=== PATIENT | male | born 1945 | race African-American/Black ===

== ENCOUNTER → 2016-07-30 | Outpatient (CLI) | payer MEDICARE, MEDICAID ==
[~2016-07-30] VITALS: Ht 177.8 cm; Wt 81.2 kg
[~2016-07-30] MED LIST: ASPI-983 PO; ASPI-999 PO; ATOR80TA76 PO; BIOT25007 PO; CARV12.53 PO; CATHETER FLUSH 10 ML SYR IV PRN; FERR-84 PO; GENT3.5O18 TOP; GLIP5TAB13 PO; ISOS30TA3 PO; KERATIN PO; LISI-556 PO; LISI10TA PO; LISI10TA2 PO; METF500T4 PO; METO-333 PO; MTF500T PO; MULT1TAB69 PO; OMEG-160 PO; OMEP20CA12 PO; OMEP20TA33 PO; OMG1KC PO; PRAV10TA PO; RSG4T PO; SIMV20TA3 PO; SITA50TA PO; TICA90TA PO
[2016-07-30 13:46] VITALS: BP 181/88
[2016-07-30 13:54] VITALS: BP 165/74
[2016-07-30 13:57] VITALS: BP 141/76
[2016-07-30 13:58] VITALS: BP 145/78
[2016-07-30 14:00] VITALS: BP 150/82
--- NOTE | 2016-07-31 11:34 | STRESS TEST ---
PROCEDURE PHYSICIAN: KELLY QUINTANILLA MYOVIEW STRESS TEST REPORT: DATE OF PROCEDURE: 07/30/2016 REFERRING PHYSICIAN: Dr. Janet Stokes. INDICATION: Coronary artery disease. Baseline heart rate 66, baseline blood pressure: 181/88. Baseline EKG: Sinus rhythm with no ischemic changes. SUMMARY: The patient was injected with 10.5 mCi of technetium 99 Myoview and the resting images were obtained. Then he started exercising with a baseline heart rate, blood pressure, EKG mentioned above. At minute 2 and 30 seconds, the patient was injected with 30.2 mCi of technetium 99 Myoview. The patient was able to exercise for a total of 3 minutes, 40 seconds on standard Dean protocol. With peak exercise level, blood pressure was 165/74. EKG was showing minimal nondiagnostic changes with upsloping ST depression in II, III aVF, V4 and V5. The resting and stress images were reviewed and compared in the short axis, horizontal long axis, and vertical long axis views. Review of the images showed diaphragmatic attenuation with decreased uptake involving the whole inferior wall, inferolateral wall, with mild reversibility. SSS is 20, SDS 5. TID value 0.98. On the gated images, the left ventricle appeared to be normal size with normal contractility. Calculated ejection fraction 60%. CONCLUSION: 1. Fair exercise tolerance a total of 3 minutes, 40 seconds on standard Dean protocol. Total of 4.6 METs, achieving 91% of maximum expected heart rate. 2. Appropriate heart rate and blood pressure response to exercise. Returned to baseline during recovery. 3. Diaphragmatic attenuation affecting the quality of the images, there is decreased uptake involving the whole inferior wall, inferolateral wall, with mild reversibility. SSS is 20, SDS 5. 4. Normal left ventricular size with normal contractility, inferior wall is florencio normally. Calculated ejection fraction 60%. Job ID: [id number] Dictated Date: 07/30/2016 17:35:31 Truck Driver'S Offsider Date: 07/31/2016 11:28:20 / akira
== END ==
LOC: CARD 11:51
PROVIDERS: ATTEND Physician Assistant
DX: I25.10 Atherosclerotic heart disease of native coronary artery without angina pectoris (principal); I10 Essential (primary) hypertension; E78.2 Mixed hyperlipidemia; I07.1 Rheumatic tricuspid insufficiency
CPT/HCPCS: 78452; 93017

== ENCOUNTER 2016-08-13 07:37 | Day surgery (SDC) | payer MEDICARE, MEDICAID ==
[~2016-08-13] VITALS: Ht 177.8 cm; Wt 83.9 kg
[2016-08-13] VITALS (15 sets, daily range): BP systolic 122–173; BP diastolic 70–98
[~2016-08-13 07:37] MED LIST changes: -CARV12.53 PO; -CATHETER FLUSH 10 ML SYR IV PRN; -LISI10TA2 PO; -SITA50TA PO
[2016-08-13] MEDS ORDERED: HEParin (CATH LAB) 2,000 ML IV ONE (07:43)
[2016-08-13] MEDS ORDERED: NS IV 1000 ML 1,000 ML ONE (07:43)
[2016-08-13] MEDS ORDERED: LIDOCAINE 1% INJ 20 ML (XYLOCAINE) VIAL ONE (07:43)
[2016-08-13 08:27] LABS: MEAN PLATELET VOLUME 8.8 FL (7.4-10.4); RED BLOOD COUNT 4.27 10^6/uL (4.35-5.85); RED CELL DISTRIBUTION WIDTH 12.9 % (10.0-14.5); WHITE BLOOD COUNT 6.2 10^3/uL (4.3-11.0)
--- NOTE | 2016-08-13 08:32 | Diagnostic Imaging Report ---
EXAMINATION: Portable upright radiograph of the chest. INDICATION: Abnormal stress test. Dyspnea. FINDINGS: The lungs are clear. The heart size is normal. No effusion or pneumothorax. Mediastinum and juan m appear unremarkable. IMPRESSION: Unremarkable exam. Dictated by: Dictated on workstation # [id number]
[2016-08-13 08:36] LABS: PROTHROMBIN TIME PATIENT 12.4 SEC (12.2-14.7)
[2016-08-13 08:45] LABS: ALBUMIN 3.8 G/DL (3.2-4.5); BILIRUBIN,TOTAL 0.5 MG/DL (0.1-1.0); CALCIUM 8.9 MG/DL (8.5-10.1); CREATININE SERUM 1.54 MG/DL (0.60-1.30); POTASSIUM 4.1 MMOL/L (3.6-5.0); TOTAL PROTEIN 6.6 G/DL (6.4-8.2)
[2016-08-13] MEDS ORDERED: NS IV 1000 ML 1,000 ML IV SCH ×2 (08:45→11:02)
[2016-08-13] MEDS ORDERED: LISI10TA2 PO (09:12)
[2016-08-13] MEDS ORDERED: SITA50TA PO (09:12)
[2016-08-13] MEDS ORDERED: CARV12.53 PO (09:12)
--- NOTE | 2016-08-13 09:44 | Cardiac Procedure Note-CS/ASA ---
Pre-Procedure Note Pre-Op Procedure Note H&P Reviewed The H&P was reviewed, patient examined and no changes noted. Date H&P Reviewed: Aug 13, 2016 Time H&P Reviewed: 09:44 Conscious Sedation Pre-Proced Time Reviewed: :44 ASA Class: 3 Airway Mallampati Classification: ([place] appropriate class) I. II. III, IV Lungs Heart ASA score ASA 1: a normal healthy patient ASA 2: a patient with a mild systemic disease (mid diabetes, controlled hypertension, obesity x ASA 3: a patient with a severe systemic disease that limits activity (angina , COPD, prior Myocardial infarction) ASA 4: a patient with an incapacitating disease that is a constant threat to life (CHF, renal failure) ASA 5: a moribund patient not expected to survive 24 hrs. (ruptured aneurysm) ASA 6: a declared brain patient whose organs are being harvested. For emergent operations, add the letter E after the classification Grade 3 Sedation Plan: Analgesia, Amnesia, Plan communicated to team members, Discussed options with patient/fam, Discussed risks with patient/fam Note The patient is an appropriate candidate to undergo the planned procedure, sedation, and anesthesia. The patient immediately re-assessed prior to indication. KELLY RODRIGUEZ MD Aug 13, 2016 09:44
[2016-08-13] MEDS ORDERED: fentaNYL INJECTION 100 MCG/2 ML AMP ONE (10:13)
[2016-08-13] MEDS ORDERED: MIDAZOLAM 5 MG/5 ML (VERSED) VIAL ONE (10:13)
--- NOTE | 2016-08-13 11:04 | Discharge Inst-Post CATH ---
Discharge Inst-CATH Post Cardiac Cath D/C Inst Follow Up/Plan Hold Metformin for [address] Dsouza's office in 2-4 weeks CARDIAC CATH DISCHARGE INSTRUCTIONS *Hold Metformin for 48 hours post heart cath. ACTIVITY * Go Home directly and rest. * Limit activity of the leg (or wrist if it was used) for 7 days including aerobics, swimming, jogging, bicycling, etc. * Restrict stair-climbing for 7 days if possible, if not, climb up with your non -cath leg, then bring together on the same step. * Avoid lifting, pushing, pulling or excessive movement of the affected extremity for 7 days. * Customary sexual activity may be resumed after 2 days-use caution not to use a position that strains or causes pain to the affected extremity. * No driving for 24 hours. * NO SMOKING. * Avoid straining for bowel movements for 7 days. * Gentle walking on level ground is allowed. * Returning to work will depend on the type of procedure and the results. Your doctor will discuss this with you. CALL YOUR DOCTOR FOR ANY OF THE FOLLOWING: *If bleeding from the puncture site occurs- Apply gentle pressure to site with clean cloth and call your doctor or EMS. * If a knot or lump forms under the skin, increases in size, or causes pain. * If bruising appears to be worsening or moving further down your leg instead of disappearing. * Temperature above 101 F. CARE OF YOUR GROIN INCISION; * Bruising or purple discoloration of the skin near the puncture site is common. * You may shower only, no bathtub bathing for 5 days. Be careful to avoid slipping as your leg may feel stiff. * If a closure device was used on your femoral artery, please see the attached guide regarding care of the device and your leg. * REMOVE the dressing from your groin the next day after your procedure in the shower. CARE OF YOUR WRIST INCISION; * Bruising or purple discoloration of the skin near the puncture site is common. * You may shower. * DO NOT submerge wrist. * Remove dressing in 24 hours. KELLY DSOUZA MD Aug 13, 2016 11:04
[2016-08-13] MEDS ORDERED: PATIENT MAY USE OWN MEDS, ALL PO SCH (11:15)
--- NOTE | 2016-08-14 07:41 | CARDIAC CATHETERIZATION ---
DATE OF SERVICE: 08/13/2016 CARDIAC CATHETERIZATION REFERRING PHYSICIAN: Dr. Janet Stokes BRIEF HISTORY: The patient is a 71-year-old gentleman with extensive coronary artery disease, multiple wrist fractures, had acute myocardial infarction in 08/2015, underwent emergency cardiac catheterization with stenting to the second obtuse marginal branch with a small stent and balloon angioplasty to a small, nondominant right coronary artery. The patient has been doing well, had an abnormal stress test. He was scheduled for left heart catheterization, possible PTCA. PROCEDURE NOTE: After explaining the procedure to the patient, all pros and cons were explained, all questions were answered. The patient signed the consent and then he was placed in the cardiac catheterization laboratory. Right groin was prepped in a sterile fashion. Local anesthesia applied to the right groin. A 6-Finnish sheath was placed in the right femoral artery. Combination of right and left Ailyn catheter were used to access the right and left coronary system. Multiple views were obtained. Pigtail catheter advanced to the left ventricular cavity. Pressure was measured. No left ventriculogram was done. At the end of the procedure, sheath was removed. MYNX device deployed. Hemostasis achieved. TOTAL CONTRAST USED: 34 mL. TOTAL RADIATION DOSE: 265 mGy. FINDINGS: Hemodynamics: LV pressure 126/7, end diastolic pressure of 7, aortic pressure 126/60, mean of 85, no significant gradient across the aortic valve. ANATOMY: 1. The left main coronary artery is bifurcating into the left anterior descending and left circumflex artery with 30% distal left main stenosis. 2. Left anterior descending artery is moderate in size with 40% stenosis in the mid LAD, nonobstructive disease. 3. Left circumflex artery is a dominant artery with mild disease proximally. The second obtuse marginal branch is occluded, no collateral to that branch. 4. Right coronary artery is a small nondominant artery with 50% stenosis at the proximal and mid portion. 5. No left ventriculogram was done. Normal left ventricular end diastolic pressure. IN CONCLUSION: 1. Total occlusion of the second obtuse marginal branch that is not receiving collateral at this point. 2. A 50% stenosis in the proximal and mid right coronary artery that is small nondominant artery. 3. Mild disease in the distal left main and mid LAD. DISCUSSION AND RECOMMENDATION: Second obtuse marginal branch appeared to be occluded again. It was totally occluded initially in 2015 and underwent emergency angioplasty and stenting to be re-stenosed. At this point, due to the fact that it is totally occluded and the patient is doing well, I will continue medical therapy. Consideration for high risk intervention to the second obtuse marginal branch, although the benefit is very limited, will be made if the patient became significantly symptomatic. His left ventricular end diastolic pressure is normal, stress score is fairly elevated due to the inferior wall infarct. FINAL DIAGNOSES: 1. Coronary artery disease. 2. Hypertension. 3. Hyperlipidemia. 4. Diabetes mellitus. Job ID: [id number] DocumentID: [id number] Dictated Date: 08/13/2016 11:08:50 Respiratory Therapy Director Date: 08/13/2016 20:07:01 Dictated By: KELLY RODRIGUEZ MD
== END 2016-08-13 15:40 | disposition home or self-care (01) ==
LOC: CATH 07:37 → SURG 11:23 → CATH 15:40
PROVIDERS: ATTEND Internal Medicine Cardiovascular Disease
DX: R94.39 Abnormal result of other cardiovascular function study (principal); I25.10 Atherosclerotic heart disease of native coronary artery without angina pectoris; I25.82 Chronic total occlusion of coronary artery; I25.2 Old myocardial infarction; I12.9 Hypertensive chronic kidney disease with stage 1 through stage 4 chronic kidney disease, or unspecified chronic kidney disease; N18.9 Chronic kidney disease, unspecified; E78.5 Hyperlipidemia, unspecified; E11.22 Type 2 diabetes mellitus with diabetic chronic kidney disease; Z79.899 Other long term (current) drug therapy; Z79.84 Long term (current) use of oral hypoglycemic drugs; Z87.891 Personal history of nicotine dependence; Z95.5 Presence of coronary angioplasty implant and graft
CPT/HCPCS: 36415; 71010; 80053; 80061; 85027; 85610; 85730; 87081; 93458

== ENCOUNTER 2017-05-31 16:47 | Emergency (ER) | payer MEDICARE, MEDICAID ==
[~2017-05-31] VITALS: Ht 177.8 cm; Wt 83.9 kg
[~2017-05-31 16:47] MED LIST changes: +CARV12.53 PO; +LISI10TA2 PO; +SITA50TA PO
[2017-05-31 17:00] VITALS: BP 190/110
[2017-05-31 17:39] VITALS: BP 190/110
[2017-05-31] MEDS ORDERED: cloNIDine 0.1 MG (CATAPRES) TAB PO ONE (18:00)
[2017-05-31 18:16] LABS: BASOPHILS % (AUTO) 1 % (0-10); EOSINOPHILS # (AUTO) 0.2 10^3/uL (0.0-0.3); EOSINOPHILS % (AUTO) 3 % (0-10); HEMATOCRIT 36 % (40-54); HEMOGLOBIN 12.3 G/DL (13.3-17.7); LYMPHOCYTES # (AUTO) 1.6 X 10^3 (1.0-4.0); LYMPHOCYTES % (AUTO) 21 % (12-44); MEAN CORPUSCULAR HEMOGLOBIN 29 PG (25-34); MEAN CORPUSCULAR HGB CONC 34 G/DL (32-36); MEAN CORPUSCULAR VOLUME 83 FL (80-99); MEAN PLATELET VOLUME 8.8 FL (7.4-10.4); MONOCYTES # (AUTO) 0.6 X 10^3 (0.0-1.0); MONOCYTES % (AUTO) 8 % (0-12); NEUTROPHILS # (AUTO) 5.3 X 10^3 (1.8-7.8); NEUTROPHILS % (AUTO) 68 % (42-75); PLATELET COUNT 251 10^3/uL (130-400); RED BLOOD COUNT 4.32 10^6/uL (4.35-5.85); RED CELL DISTRIBUTION WIDTH 12.6 % (10.0-14.5); WHITE BLOOD COUNT 7.8 10^3/uL (4.3-11.0)
[2017-05-31 18:29] LABS: BUN/CREATININE RATIO 18; CALCIUM 9.1 MG/DL (8.5-10.1); CARBON DIOXIDE 20 MMOL/L (21-32); CHLORIDE 102 MMOL/L (98-107); CREATININE SERUM 1.48 MG/DL (0.60-1.30); GFR ESTIMATED 57; GLUCOSE 134 MG/DL (70-105); POTASSIUM 3.8 MMOL/L (3.6-5.0); SODIUM 134 MMOL/L (135-145)
--- NOTE | 2017-05-31 18:40 | ED Cardiac General ---
History of Present Illness General Chief Complaint: Cardiac/General Problems Stated Complaint: HIGH BP Nursing Triage Note: ARRIVED VIA AMB TO TRIAGE. COMPLAINS OF CONTINUED HIGH BP EVEN AFTER TAKING X2 LISINOPRIL THIS AM. Source: patient Exam Limitations: no limitations History of Present Illness Date Seen by Provider: May 31, 2017 Time Seen by Provider: 18:37 Initial Comments To ER with reports of high blood pressure for the past 2-3 days more so today. Blood pressure about 190/100. He is on lisinopril 10 mg daily. He cannot think of any reason his pressures would've been high for the past few days. He took 2 doses of lisinopril today with out reduction in blood pressure. He denies chest pain or shortness of breath. He did have a headache earlier but gone now. Timing/Duration: 2-3 days Severity: moderate Activities at Onset: none NTG SL MANAGEMENT ANALYST: No ASA po MANAGEMENT ANALYST: No Associated Systoms: Headaches Allergies and Home Medications Allergies Coded Allergies: No Known Drug Allergies (Unverified , 11/10/09) Home Medications Aspirin 81 Mg Tab.chew, 81 MG PO DAILY, (Reported) Atorvastatin Calcium 80 Mg Tablet, 80 MG PO HS, (Reported) Biotin 2,500 Mcg Capsule, 5,000 MCG PO DAILY, (Reported) TAKES 2 (2,500 MCG) CAPSULES Carvedilol 12.5 Mg Tablet, 12.5 MG PO BID, (Reported) Lisinopril 10 Mg Tablet, 10 MG PO DAILY, (Reported) Multivitamin 1 Each Tablet, 1 TAB PO DAILY, (Reported) [place]-3/Dha/Epa/Fish Oil 1 Each Capsule, 1,000 MG PO DAILY, (Reported) Omeprazole Magnesium 20 Mg Tablet.dr, 20 MG PO DAILY PRN for INDIGESTION, ( Reported) Sitagliptin Phosphate 50 Mg Tablet, 50 MG PO DAILY, (Reported) Ticagrelor 90 Mg Tablet, 90 MG PO BID, (Reported) Review of Systems Constitutional: see HPI EENTM: No Symptoms Reported Respiratory: No Symptoms Reported Cardiovascular: No Symptoms Reported, Denies Chest Pain, Denies Edema, Denies Irregular Heart Rate, Denies Lightheadedness Gastrointestinal: No Symptoms Reported Genitourinary: No Symptoms Reported Musculoskeletal: no symptoms reported Skin: no symptoms reported Psychiatric/Neurological: No Symptoms Reported Past Ycpfrpn-[id number]-Klgczi Hx Patient Social History Alcohol Use: Denies Use Recreational Drug Use: No Smoking Status: Former Smoker Type Used: Cigarettes Former Smoker, Quit: Aug 13, 1993 Recent Foreign Travel: No Contact w/Someone Who Travel: No Recent Infectious Disease Expo: No Immunizations Up To Date Tetanus Booster (TDap): More than 5yrs Date of Pneumonia Vaccine: Mar 15, 2013 Surgeries History of Surgeries: Yes Surgeries: Appendectomy, Cardiac, Coronary Stent, Prostatectomy Respiratory History of Respiratory Disorde: No Cardiovascular History of Cardiac Disorders: Yes Cardiac Disorders: Coronary Artery Disease, Heart Attack, Hypertension Neurological History of Neurological Disord: No Reproductive System Hx Reproductive Disorders: No Gastrointestinal History of Gastrointestinal Di: Yes Gastrointestinal Disorders: Gastroesophageal Reflux Musculoskeletal History of Musculoskeletal Dis: No Endocrine History of Endocrine Disorders: Yes Endocrine Disorders: Diabetes, Non-Insulin dep Cancer History of Cancer: Yes Cancer: Prostate Psychosocial History of Psychiatric Problem: No Integumentary History of Skin or Integumenta: No Blood Transfusions History of Blood Disorders: No Family Medical History Significant Family History: No Pertinent Family Hx Physical Exam Vital Signs Vital Signs - First Documented 05/31/17 05/31/17 17:00 17:30 Temp 97.8 Pulse 71 Resp 14 B/P (MAP) 190/110 (136) Pulse Ox 99 O2 Delivery Room Air Capillary Refill : Less Than 3 Seconds General Appearance: No Apparent Distress, WD/WN HEENT: PERRL/EOMI, TMs Normal Neck: Full Range of Motion, Normal Inspection Respiratory: No Accessory Muscle Use, No Respiratory Distress Cardiovascular: Regular Rate, Rhythm, Normal Peripheral Pulses Gastrointestinal: Normal Bowel Sounds, Non Tender, Soft Extremity: Normal Capillary Refill, Normal Inspection Neurologic/Psychiatric: Alert, Oriented x3 Skin: Normal Color, Warm/Dry Progress/Results/Core Measures Results/Orders Lab Results Laboratory Tests Test 05/31/17 18:04 Range/Units White Blood Count 7.8 4.3-11.0 10^3/uL Red Blood Count 4.32 L 4.35-5.85 10^6/uL Hemoglobin 12.3 L 13.3-17.7 G/DL Hematocrit 36 L 40-54 % Mean Corpuscular Volume 83 80-99 FL Mean Corpuscular Hemoglobin 29 25-34 PG Mean Corpuscular Hemoglobin Concent 34 32-36 G/DL Red Cell Distribution Width 12.6 10.0-14.5 % Platelet Count 251 130-400 10^3/uL Mean Platelet Volume 8.8 7.4-10.4 FL Neutrophils (%) (Auto) 68 42-75 % Lymphocytes (%) (Auto) 21 12-44 % Monocytes (%) (Auto) 8 0-12 % Eosinophils (%) (Auto) 3 0-10 % Basophils (%) (Auto) 1 0-10 % Neutrophils # (Auto) 5.3 1.8-7.8 X 10^3 Lymphocytes # (Auto) 1.6 1.0-4.0 X 10^3 Monocytes # (Auto) 0.6 0.0-1.0 X 10^3 Eosinophils # (Auto) 0.2 0.0-0.3 10^3/uL Basophils # (Auto) 0.0 0.0-0.1 10^3/uL Sodium Level 134 L 135-145 MMOL/L Potassium Level 3.8 3.6-5.0 MMOL/L Chloride Level 102 98-107 MMOL/L Carbon Dioxide Level 20 L 21-32 MMOL/L Anion Gap 12 5-14 MMOL/L Blood Urea Nitrogen 27 H 7-18 MG/DL Creatinine 1.48 H 0.60-1.30 MG/DL Estimat Glomerular Filtration Rate 57 BUN/Creatinine Ratio 18 Glucose Level 134 H 70-105 MG/DL Calcium Level 9.1 8.5-10.1 MG/DL Troponin I < 0.30 <0.30 NG/ML My Orders Orders - JAIME LAU APRN Cbc With Automated Diff (05/31/17 17:52) Basic Metabolic Panel (05/31/17 17:52) Troponin I (05/31/17 17:52) Clonidine Tablet (Catapres Tablet) (05/31/17 18:00) Ekg Tracing (05/31/17 17:54) Medications Given in ED Current Medications Medications Dose Ordered Sig/Padma Route Start Time Stop Time Status Last Admin Dose Admin Clonidine HCl 0.1 mg ONCE ONCE PO 05/31/17 18:00 05/31/17 18:01 DC 05/31/17 18:00 0.1 MG Vital Signs/I&O Vital Sign - Last 12Hours 05/31/17 05/31/17 17:00 17:30 Temp 97.8 98.9 Pulse 71 72 Resp 14 18 B/P (MAP) 190/110 (136) 175/97 (123) Pulse Ox 99 98 O2 Delivery Room Air Blood Pressure Mean: 123 Departure Communication (Admissions) Progress Notes 1848-after 0.1 mg clonidine, blood pressure currently down to 157/85. I will add HCTZ to his medication regimen and have him follow-up with Dr. Stokes Impression Impression: Primary Impression: CRI (chronic renal insufficiency) Additional Impression: hypertension Disposition: HOME, SELF-CARE Condition: Stable Departure-Patient Inst. Decision time for Depature: 18:39 Referrals: SHUN STOKES MD (PCP/Family) Primary Care Physician Patient Instructions: High Blood Pressure (DC) Add. Discharge Instructions: 1. Continue all your current medications. Call Dr. Stokes tomorrow morning for further advice on blood pressure management. He may want to see him in the office. All discharge instructions reviewed with patient and/or family. Voiced understanding. Scripts Hydrochlorothiazide (Hydrochlorothiazide) 12.5 Mg Tablet 12.5 MG PO DAILY, #10 TAB Prov: JAIME LAU APRN 05/31/17 Copy Copies To 1: SHUN STOKES MD, PETER J APRN May 31, 2017 18:40
[2017-05-31] MEDS ORDERED: HYDR12.56 PO (18:50)
[2017-05-31 18:57] VITALS: BP 157/85
== END 2017-05-31 19:10 | disposition home or self-care (01) ==
LOC: EDUNIT# 16:47 → ER 16:48
DX: I12.9 Hypertensive chronic kidney disease with stage 1 through stage 4 chronic kidney disease, or unspecified chronic kidney disease (principal); E11.22 Type 2 diabetes mellitus with diabetic chronic kidney disease; N18.9 Chronic kidney disease, unspecified; K21.9 Gastro-esophageal reflux disease without esophagitis; I25.2 Old myocardial infarction; I25.10 Atherosclerotic heart disease of native coronary artery without angina pectoris; Z87.891 Personal history of nicotine dependence; Z90.79 Acquired absence of other genital organ(s); Z90.49 Acquired absence of other specified parts of digestive tract; Z95.5 Presence of coronary angioplasty implant and graft; Z79.82 Long term (current) use of aspirin
CPT/HCPCS: 36415; 80048; 84484; 85025; 93005

== ENCOUNTER → 2017-09-09 | Outpatient (CLI) | payer MEDICARE, MEDICAID ==
[~2017-09-09] MED LIST changes: +HYDR12.56 PO; -METF500T4 PO; +METF500T5 PO
== END ==
LOC: CARD 09:19
PROVIDERS: ATTEND Physician Assistant
DX: I25.10 Atherosclerotic heart disease of native coronary artery without angina pectoris (principal); R07.89 Other chest pain; I10 Essential (primary) hypertension; E78.5 Hyperlipidemia, unspecified; I08.1 Rheumatic disorders of both mitral and tricuspid valves
CPT/HCPCS: 93306

== ENCOUNTER 2017-11-24 21:16 | Emergency (ER) | payer MEDICARE, MEDICAID ==
--- OUTSIDE RECORDS SUMMARY | 2017-11-24 21:21 | XMS REPORT | Continuity of Care Document ---
Author Author [facility] Organization [facility] Address Unknown Phone Unavailable Allergies Active Description Code Type Severity Reaction Onset Reported/Identified Relationship to Patient Clinical Status Yes NO KNOWN DRUG ALLERGIES NO KNOWN DRUG ALLERG UNKNOWN Yes NO KNOWN DRUG ALLERGIES UNKNOWN NO KNOWN DRUG ALLERG Yes No Known Drug Allergies [id number] Drug Allergy Unknown N/A 11/10/2009 Medications There is no data. Problems Date Dx Coded Attending Type Code Diagnosis Diagnosed By 03/20/2013 BLAKE AGUILAR DO Ot 275.2 DIS MAGNESIUM METABOLISM 03/20/2013 BLAKE AGUILAR DO Ot 276.51 DEHYDRATION 03/20/2013 BLAKE AGUILAR DO Ot 780.79 OTH MALAISE FATIGUE 09/05/2015 KELLY RODRIGUEZ MD Ot C61 MALIGNANT NEOPLASM OF PROSTATE 09/05/2015 KELLY RODRIGUEZ MD Ot E11.9 TYPE 2 DIABETES MELLITUS WITHOUT COMPLIC 09/05/2015 KELLY RODRIGUEZ MD Ot E78.5 HYPERLIPIDEMIA, UNSPECIFIED 09/05/2015 KELLY RODRIGUEZ MD Ot I12.9 HYPERTENSIVE CHRONIC KIDNEY DISEASE W ST 09/05/2015 KELLY RODRIGUEZ MD Ot I21.19 STEMI INVOLVING OTH CORONARY ARTERY OF I 09/05/2015 KELLY RODRIGUEZ MD Ot I25.10 ATHSCL HEART DISEASE OF [place] CORONARY 09/05/2015 KELLY RODRIGUEZ MD Ot I95.9 HYPOTENSION, UNSPECIFIED 09/05/2015 KELLY RODRIGUEZ MD Ot N18.9 CHRONIC KIDNEY DISEASE, UNSPECIFIED 09/05/2015 KELLY RODRIGUEZ MD Ot R57.8 OTHER SHOCK 09/07/2015 JAIME LAU APRN Ot I10 ESSENTIAL (PRIMARY) HYPERTENSION 09/07/2015 JAIME LAU APRN Ot R51 HEADACHE 09/11/2015 JAIME LAU APRN Ot I10 ESSENTIAL (PRIMARY) HYPERTENSION 09/11/2015 JAIME LAU APRN Ot R51 HEADACHE 09/11/2015 JAIME LAU ADOBE FLEX DEVELOPER Ot I10 ESSENTIAL (PRIMARY) HYPERTENSION 09/11/2015 JAIME LAU ADOBE FLEX DEVELOPER Ot R51 HEADACHE 09/26/2015 DIONNE VILLEGAS FAC, ALI FACP CCDS Ot E11.9 TYPE 2 DIABETES MELLITUS WITHOUT COMPLIC 09/26/2015 DIONNE VILLEGAS FACC, ALI FACP CCDS Ot E78.5 HYPERLIPIDEMIA, UNSPECIFIED 09/26/2015 DIONNE VILLEGAS FACC, ALI FACP CCDS Ot E83.42 HYPOMAGNESEMIA 09/26/2015 DIONNE VILLEGAS FAC, ALI FACP CCDS Ot E87.1 HYPO-OSMOLALITY AND HYPONATREMIA 09/26/2015 DIONNE VILLEGAS FACC, ALI FACP CCDS Ot I10 ESSENTIAL (PRIMARY) HYPERTENSION 09/26/2015 DIONNE VILLEGAS FAC, ALI FACP CCDS Ot I25.10 ATHSCL HEART DISEASE OF [place] CORONARY 09/26/2015 DIONNE VILLEGAS FAC, ALI FACP CCDS Ot I25.2 OLD MYOCARDIAL INFARCTION 09/26/2015 DIONNE VILLEGAS FAC, ALI FACP CCDS Ot R07.9 CHEST PAIN, UNSPECIFIED 09/26/2015 DIONNE VILLEGAS FAC, ALI FACP CCDS Ot Z95.5 PRESENCE OF CORONARY ANGIOPLASTY IMPLANT 10/30/2015 KELLY RODRIGUEZ MD Ot I25.2 OLD MYOCARDIAL INFARCTION 10/30/2015 KELLY RODRIGUEZ MD Ot Z09 ENCNTR FOR F/U EXAM AFT TRTMT FOR COND O 12/14/2015 KELLY RODRIGUEZ MD Ot I25.2 OLD MYOCARDIAL INFARCTION 12/14/2015 KELLY RODRIGUEZ MD Ot Z09 ENCNTR FOR F/U EXAM AFT TRTMT FOR COND O 12/25/2015 KELLY RODRIGUEZ MD Ot I25.2 OLD MYOCARDIAL INFARCTION 12/25/2015 KELLY RODRIGUEZ MD Ot Z09 ENCNTR FOR F/U EXAM AFT TRTMT FOR COND O 01/24/2016 KELLY RODRIGUEZ MD, Ot I25.2 OLD MYOCARDIAL INFARCTION 01/24/2016 KELLY RODRIGUEZ MD Ot Z09 ENCNTR FOR F/U EXAM AFT TRTMT FOR COND O 01/25/2016 KELLY RODRIGUEZ MD Ot I25.2 OLD MYOCARDIAL INFARCTION 01/25/2016 MICHAEL MD, BASHAR J Ot Z09 ENCNTR FOR F/U EXAM AFT TRTMT FOR COND O 07/30/2016 KELLY RODRIGUEZ MD Ot I25.2 OLD MYOCARDIAL INFARCTION 07/30/2016 KELLY RODRIGUEZ MD Ot Z09 ENCNTR FOR F/U EXAM AFT TRTMT FOR COND O 07/30/2016 SISSY GÓMEZ K Ot I25.10 ATHSCL HEART DISEASE OF [place] CORONARY 07/30/2016 SISSY GÓMEZ K Ot I25.10 ATHSCL HEART DISEASE OF [place] CORONARY 08/01/2016 DENNISE GÓMEZTH K Ot E78.2 MIXED HYPERLIPIDEMIA 08/01/2016 SISSY GÓMEZ K Ot I07.1 RHEUMATIC TRICUSPID INSUFFICIENCY 08/01/2016 SISSY GÓMEZ K Ot I10 ESSENTIAL (PRIMARY) HYPERTENSION 08/01/2016 SISSY GÓMEZ K Ot I25.10 ATHSCL HEART DISEASE OF [place] CORONARY 08/13/2016 SISSY GÓMEZ K Ot E78.2 MIXED HYPERLIPIDEMIA 08/13/2016 SISSY GÓMEZ K Ot I07.1 RHEUMATIC TRICUSPID INSUFFICIENCY 08/13/2016 DENNISE GÓMEZTH K Ot I10 ESSENTIAL (PRIMARY) HYPERTENSION 08/13/2016 DENNISE GÓMEZTH K Ot I25.10 ATHSCL HEART DISEASE OF [place] CORONARY 08/13/2016 MICHAEL VILLEGAS, KELLY Taylor Ot I25.2 OLD MYOCARDIAL INFARCTION 08/13/2016 KELLY RODRIGUEZ MD Ot Z09 ENCNTR FOR F/U EXAM AFT TRTMT FOR COND O 08/13/2016 SISSY GÓMEZ K Ot E78.2 MIXED HYPERLIPIDEMIA 08/13/2016 SISSY GÓMEZ K Ot I07.1 RHEUMATIC TRICUSPID INSUFFICIENCY 08/13/2016 SISSY GÓMEZ K Ot I10 ESSENTIAL (PRIMARY) HYPERTENSION 08/13/2016 SISSY GÓMEZ K Ot I25.10 ATHSCL HEART DISEASE OF [place] CORONARY 08/13/2016 KELLY RODRIGUEZ MD Ot I25.2 OLD MYOCARDIAL INFARCTION 08/13/2016 KELLY RODRIGUEZ MD Ot Z09 ENCNTR FOR F/U EXAM AFT TRTMT FOR COND O 08/13/2016 KELLY RODRIGUEZ MD Ot E11.22 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 08/13/2016 KELLY RODRIGUEZ MD Ot E78.5 HYPERLIPIDEMIA, UNSPECIFIED 08/13/2016 KELLY RODRIGUEZ MD Ot I12.9 HYPERTENSIVE CHRONIC KIDNEY DISEASE W ST 08/13/2016 KELLY RODRIGUEZ MD Ot I25.10 ATHSCL HEART DISEASE OF [place] CORONARY 08/13/2016 KELLY RODRIGUEZ MD Ot I25.2 OLD MYOCARDIAL INFARCTION 08/13/2016 KELLY RODRIGUEZ MD Ot I25.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 [place] 08/13/2016 KELLY RODRIGUEZ MD Ot N18.9 CHRONIC KIDNEY DISEASE, UNSPECIFIED 08/13/2016 KELLY RODRIGUEZ MD Ot R94.39 ABNORMAL RESULT OF OTHER CARDIOVASCULAR 08/13/2016 KELLY RODRIGUEZ MD Ot Z79.84 ENGINEERING ASSISTANT (CURRENT) USE OF ORAL HYPOGLYC 08/13/2016 KELLY RODRIGUEZ MD Ot Z79.899 OTHER ENGINEERING ASSISTANT (CURRENT) DRUG THERAPY 08/13/2016 KELLY RODRIGUEZ MD Ot Z87.891 PERSONAL HISTORY OF NICOTINE DEPENDENCE 08/13/2016 KELLY RODRIGUEZ MD Ot Z95.5 PRESENCE OF CORONARY ANGIOPLASTY IMPLANT 08/19/2016 KELLY RODRIGUEZ MD Ot E11.22 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 08/19/2016 KELLY RODRIGUEZ MD Ot E78.5 HYPERLIPIDEMIA, UNSPECIFIED 08/19/2016 KELLY RODRIGUEZ MD Ot I12.9 HYPERTENSIVE CHRONIC KIDNEY DISEASE W ST 08/19/2016 KELLY RODRIGUEZ MD Ot I25.10 ATHSCL HEART DISEASE OF [place] CORONARY 08/19/2016 KELLY RODRIGUEZ MD Ot I25.2 OLD MYOCARDIAL INFARCTION 08/19/2016 KELLY RODRIGUEZ MD Ot I25.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 [place] 08/19/2016 KELLY RODRIGUEZ MD Ot N18.9 CHRONIC KIDNEY DISEASE, UNSPECIFIED 08/19/2016 KELLY RODRIGUEZ MD Ot R94.39 ABNORMAL RESULT OF OTHER CARDIOVASCULAR 08/19/2016 KELLY RODRIGUEZ MD Ot Z79.84 USP (CURRENT) USE OF ORAL HYPOGLYC 08/19/2016 KELLY RODRIGUEZ MD, Ot Z79.899 OTHER ENGINEERING ASSISTANT (CURRENT) DRUG THERAPY 08/19/2016 KELLY RODRIGUEZ MD, Ot Z87.891 PERSONAL HISTORY OF NICOTINE DEPENDENCE 08/19/2016 KELLY RODRIGUEZ MD Ot Z95.5 PRESENCE OF CORONARY ANGIOPLASTY IMPLANT 08/19/2016 SISSY GÓMEZ Ot E78.2 MIXED HYPERLIPIDEMIA 08/19/2016 SISSY GÓMEZ Ot I07.1 RHEUMATIC TRICUSPID INSUFFICIENCY 08/19/2016 SISSY GÓMEZ Ot I10 ESSENTIAL (PRIMARY) HYPERTENSION 08/19/2016 SISSY GÓMEZ Ot I25.10 ATHSCL HEART DISEASE OF [place] CORONARY 09/01/2016 SISSY GÓMEZ Ot E78.2 MIXED HYPERLIPIDEMIA 09/01/2016 SISSY GÓMEZ Ot I07.1 RHEUMATIC TRICUSPID INSUFFICIENCY 09/01/2016 SISSY GÓMEZ Ot I10 ESSENTIAL (PRIMARY) HYPERTENSION 09/01/2016 SISSY GÓMEZ Ot I25.10 ATHSCL HEART DISEASE OF [place] CORONARY 05/31/2017 SISSY GÓMEZ Ot E78.2 MIXED HYPERLIPIDEMIA 05/31/2017 SISSY GÓMEZ Ot I07.1 RHEUMATIC TRICUSPID INSUFFICIENCY 05/31/2017 SISSY GÓMEZ Ot I10 ESSENTIAL (PRIMARY) HYPERTENSION 05/31/2017 SISSY GÓMEZ Ot I25.10 ATHSCL HEART DISEASE OF [place] CORONARY 05/31/2017 KELLY RODRIGUEZ MD Ot I25.2 OLD MYOCARDIAL INFARCTION 05/31/2017 KELLY RODRIGUEZ MD, Ot Z09 ENCNTR FOR F/U EXAM AFT TRTMT FOR COND O 05/31/2017 JAIME LAU APRN Ot E11.22 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 05/31/2017 JAIME LAU APRN Ot I12.9 HYPERTENSIVE CHRONIC KIDNEY DISEASE W ST 05/31/2017 JAIME LAU APRN Ot I25.10 ATHSCL HEART DISEASE OF [place] CORONARY 05/31/2017 LAU, PETER J ADOBE FLEX DEVELOPER Ot I25.2 OLD MYOCARDIAL INFARCTION 05/31/2017 JAIME LAU APRN Ot K21.9 GASTRO-ESOPHAGEAL REFLUX DISEASE WITHOUT 05/31/2017 JAIME LAU APRN Ot N18.9 CHRONIC KIDNEY DISEASE, UNSPECIFIED 05/31/2017 JAIME LAU APRN Ot Z79.82 USP (CURRENT) USE OF ASPIRIN 05/31/2017 JAIME LAU APRN Ot Z87.891 PERSONAL HISTORY OF NICOTINE DEPENDENCE 05/31/2017 JAIME LAU APRN Ot Z90.49 ACQUIRED ABSENCE OF OTHER SPECIFIED PART 05/31/2017 JAIME LAU APRN Ot Z90.79 ACQUIRED ABSENCE OF OTHER GENITAL ORGAN( 05/31/2017 JAIME LAU APRN Ot Z95.5 PRESENCE OF CORONARY ANGIOPLASTY IMPLANT 06/02/2017 JAIME LAU APRN Ot E11.22 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 06/02/2017 JAIME LAU APRN Ot I12.9 HYPERTENSIVE CHRONIC KIDNEY DISEASE W ST 06/02/2017 JAIME LAU APRN Ot I25.10 ATHSCL HEART DISEASE OF [place] CORONARY 06/02/2017 JAIME LAU APRN Ot I25.2 OLD MYOCARDIAL INFARCTION 06/02/2017 JAIME LAU APRN Ot K21.9 GASTRO-ESOPHAGEAL REFLUX DISEASE WITHOUT 06/02/2017 JAIME LAU APRN Ot N18.9 CHRONIC KIDNEY DISEASE, UNSPECIFIED 06/02/2017 JAIME LAU APRN Ot Z79.82 USP (CURRENT) USE OF ASPIRIN 06/02/2017 JAIME LAU APRN Ot Z87.891 PERSONAL HISTORY OF NICOTINE DEPENDENCE 06/02/2017 JAIME LAU APRN Ot Z90.49 ACQUIRED ABSENCE OF OTHER SPECIFIED PART 06/02/2017 JAIME LAU APRN Ot Z90.79 ACQUIRED ABSENCE OF OTHER GENITAL ORGAN( 06/02/2017 JAIME LAU APRN Ot Z95.5 PRESENCE OF CORONARY ANGIOPLASTY IMPLANT 07/14/2017 KELLY RODRIGUEZ W 250.00 DIABETES MELLITUS WITHOUT MENTION OF COMPLICATION, TYPE II OR UNSPECIFIED TYPE, NOT STATED UNCONTROLLED 07/14/2017 KELLY RODRIGUEZ W 272.4 OTHER AND UNSPECIFIED HYPERLIPIDEMIA 07/14/2017 KELLY RODRIGUEZ W 401.9 UNSPECIFIED ESSENTIAL HYPERTENSION 07/14/2017 KELLY RODRIGUEZ W E11.9 TYPE 2 DIABETES MELLITUS WITHOUT COMPLICATIONS 07/14/2017 KELLY RODRIGUEZ W E78.5 HYPERLIPIDEMIA, UNSPECIFIED 07/14/2017 KELLY RODRIGUEZ W I10 ESSENTIAL (PRIMARY) HYPERTENSION 07/30/2017 SISSY GÓMEZ Ot E78.2 MIXED HYPERLIPIDEMIA 07/30/2017 SISSY GÓMEZ Ot I07.1 RHEUMATIC TRICUSPID INSUFFICIENCY 07/30/2017 SISSY GÓMEZ Ot I10 ESSENTIAL (PRIMARY) HYPERTENSION 07/30/2017 SISSY GÓMEZ Ot I25.10 ATHSCL HEART DISEASE OF [place] CORONARY 07/30/2017 KELLY RODRIGUEZ MD Ot I25.2 OLD MYOCARDIAL INFARCTION 07/30/2017 MICHAEL VILLEGAS, KELLY Taylor Ot Z09 ENCNTR FOR F/U EXAM AFT TRTMT FOR COND O 09/10/2017 SISSY GÓMEZ Ot E78.5 HYPERLIPIDEMIA, UNSPECIFIED 09/10/2017 SISSY GÓMEZ Ot 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 09/10/2017 SISSY GÓMEZ Ot I10 ESSENTIAL (PRIMARY) HYPERTENSION 09/10/2017 SISSY GÓMEZ Ot I25.10 ATHSCL HEART DISEASE OF [place] CORONARY 09/10/2017 SISSY GÓMEZ Ot R07.89 OTHER CHEST PAIN 09/30/2017 SISSY GÓMEZ Ot E78.5 HYPERLIPIDEMIA, UNSPECIFIED 09/30/2017 SISSY GÓMEZ Ot 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 09/30/2017 SISSY GÓMEZ Ot I10 ESSENTIAL (PRIMARY) HYPERTENSION 09/30/2017 SISSY GÓMEZ Ot I25.10 ATHSCL HEART DISEASE OF [place] CORONARY 09/30/2017 SISSY GÓMEZ K Ot R07.89 OTHER CHEST PAIN 10/07/2017 SISSY GÓMEZ Ot E78.5 HYPERLIPIDEMIA, UNSPECIFIED 10/07/2017 SISSY GÓMEZ Ot 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 10/07/2017 SISSY GÓMEZ Ot I10 ESSENTIAL (PRIMARY) HYPERTENSION 10/07/2017 SISSY GÓMEZ Ot I25.10 ATHSCL HEART DISEASE OF [place] CORONARY 10/07/2017 SISSY GÓMEZ Ot R07.89 OTHER CHEST PAIN Procedures Code Description Performed By Performed On [id number] DILATION OF 1 COR ART WITH DRUG-ELUT INT 09/04/2015 [id number] DILATION OF CORONARY ARTERY, TWO SITES, 09/04/2015 [id number] MEASURE OF CARDIAC SAMPL PRESSURE, L H 09/04/2015 [id number] FLUOROSCOPY OF MULT COR ART USING L OSM 09/04/2015 [id number] FLUOROSCOPY OF LEFT HEART USING LOW OSMO 09/04/2015 Results Test Result Range Microalb/Creat - 05/07/16 08:00 Microalb 34.0 mg/L 0.0-20.0 UMicroalb/UCreat 56.38 mg/g 0.00-100.00 Urine Creatinine 60.3 mg/dl 0.0-50.0 Automated blood complete blood count (hemogram) panel - 08/13/16 08:16 Blood leukocytes automated count (number/volume) 6.2 10*3/uL 4.3-11.0 Blood erythrocytes automated count (number/volume) 4.27 10*6/uL 4.35-5.85 Venous blood hemoglobin measurement (mass/volume) 12.2 g/dL 13.3-17.7 Blood hematocrit (volume fraction) 37 % 40-54 Automated erythrocyte mean corpuscular volume 86 [foz_us] 80-99 Automated erythrocyte mean corpuscular hemoglobin (mass per erythrocyte) 29 pg 25-34 Automated erythrocyte mean corpuscular hemoglobin concentration measurement ( mass/volume) 33 g/dL 32-36 Automated erythrocyte distribution width ratio 12.9 % 10.0-14.5 Automated blood platelet count (count/volume) 235 10*3/uL 130-400 Automated blood platelet mean volume measurement 8.8 [foz_us] 7.4-10.4 PT panel in platelet poor plasma by coagulation assay - 08/13/16 08:16 Prothrombin time (PT) in platelet poor plasma by coagulation assay 12.4 s 12.2-14.7 INR in platelet poor plasma or blood by coagulation assay 1.0 0.8-1.4 Activated partial thromboplastin time (aPTT) in platelet poor plasma bycoagulation assay - 08/13/16 08:16 Activated partial thromboplastin time (aPTT) in platelet poor plasma bycoagulation assay 27 s 24-35 Comprehensive metabolic panel - 08/13/16 08:16 Serum or plasma sodium measurement (moles/volume) 139 mmol/L 135-145 Serum or plasma potassium measurement (moles/volume) 4.1 mmol/L 3.6-5.0 Serum or plasma chloride measurement (moles/volume) 108 mmol/L 98-107 Carbon dioxide 22 mmol/L 21-32 Serum or plasma anion gap determination (moles/volume) 9 mmol/L 5-14 Serum or plasma urea nitrogen measurement (mass/volume) 21 mg/dL 7-18 Serum or plasma creatinine measurement (mass/volume) 1.54 mg/dL 0.60-1.30 Serum or plasma urea nitrogen/creatinine mass ratio 14 NRG Serum or plasma creatinine measurement with calculation of estimated glomerular filtration rate 55 NRG Serum or plasma glucose measurement (mass/volume) 162 mg/dL 70-105 Serum or plasma calcium measurement (mass/volume) 8.9 mg/dL 8.5-10.1 Serum or plasma total bilirubin measurement (mass/volume) 0.5 mg/dL 0.1-1.0 Serum or plasma alkaline phosphatase measurement (enzymatic activity/volume) 59 U/L 40-136 Serum or plasma aspartate aminotransferase measurement (enzymatic activity/ volume) 20 U/L 5-34 Serum or plasma alanine aminotransferase measurement (enzymatic activity/volume ) 24 U/L 0-55 Serum or plasma protein measurement (mass/volume) 6.6 g/dL 6.4-8.2 Serum or plasma albumin measurement (mass/volume) 3.8 g/dL 3.2-4.5 Lipid 1996 panel - 08/13/16 08:16 Serum or plasma triglyceride measurement (mass/volume) 84 mg/dL <150 Serum or plasma cholesterol measurement (mass/volume) 121 mg/dL < 200 Serum or plasma cholesterol in HDL measurement (mass/volume) 37 mg/ dL 40-60 Cholesterol in LDL [mass/volume] in serum or plasma by direct assay 63 mg/dL 1-129 Serum or plasma cholesterol in VLDL measurement (mass/volume) 17 mg/ dL 5-40 Methicillin resistant Staphylococcus aureus (MRSA) screening culture - 08:16 Methicillin resistant Staphylococcus aureus (MRSA) screening culture NEG NRG Complete blood count (CBC) with automated white blood cell (WBC) differential - 05/31/17 18:04 Blood leukocytes automated count (number/volume) 7.8 10*3/uL 4.3-11.0 Blood erythrocytes automated count (number/volume) 4.32 10*6/uL 4.35-5.85 Venous blood hemoglobin measurement (mass/volume) 12.3 g/dL 13.3-17.7 Blood hematocrit (volume fraction) 36 % 40-54 Automated erythrocyte mean corpuscular volume 83 [foz_us] 80-99 Automated erythrocyte mean corpuscular hemoglobin (mass per erythrocyte) 29 pg 25-34 Automated erythrocyte mean corpuscular hemoglobin concentration measurement ( mass/volume) 34 g/dL 32-36 Automated erythrocyte distribution width ratio 12.6 % 10.0-14.5 Automated blood platelet count (count/volume) 251 10*3/uL 130-400 Automated blood platelet mean volume measurement 8.8 [foz_us] 7.4-10.4 Automated blood neutrophils/100 leukocytes 68 % 42-75 Automated blood lymphocytes/100 leukocytes 21 % 12-44 Blood monocytes/100 leukocytes 8 % 0-12 Automated blood eosinophils/100 leukocytes 3 % 0-10 Automated blood basophils/100 leukocytes 1 % 0-10 Blood neutrophils automated count (number/volume) 5.3 10*3 1.8-7.8 Blood lymphocytes automated count (number/volume) 1.6 10*3 1.0-4.0 Blood monocytes automated count (number/volume) 0.6 10*3 0.0-1.0 Automated eosinophil count 0.2 10*3/uL 0.0-0.3 Automated blood basophil count (count/volume) 0.0 10*3/uL 0.0-0.1 Whole blood basic metabolic panel - 05/31/17 18:04 Serum or plasma sodium measurement (moles/volume) 134 mmol/L 135-145 Serum or plasma potassium measurement (moles/volume) 3.8 mmol/L 3.6-5.0 Serum or plasma chloride measurement (moles/volume) 102 mmol/L 98-107 Carbon dioxide 20 mmol/L 21-32 Serum or plasma anion gap determination (moles/volume) 12 mmol/L 5-14 Serum or plasma urea nitrogen measurement (mass/volume) 27 mg/dL 7-18 Serum or plasma creatinine measurement (mass/volume) 1.48 mg/dL 0.60-1.30 Serum or plasma urea nitrogen/creatinine mass ratio 18 NRG Serum or plasma creatinine measurement with calculation of estimated glomerular filtration rate 57 NRG Serum or plasma glucose measurement (mass/volume) 134 mg/dL 70-105 Serum or plasma calcium measurement (mass/volume) 9.1 mg/dL 8.5-10.1 Serum or plasma troponin i.cardiac measurement (mass/volume) - 05/31/17 18:04 Serum or plasma troponin i.cardiac measurement (mass/volume) < ng/ mL <0.30 Hemoglobin A1C - 07/14/17 09:55 % A1C 8.40 % 5.40-6.60 AvGlu 222 mg/dL 70-110 Encounters ACCT No. Visit Date/Time Discharge Status Pt. Type Provider Facility Loc./Unit Complaint [id number] 09/09/2017 09:19:00 09/09/2017 23:59:59 CLS Outpatient SISSY GÓMEZ [facility] CARD I25.10 CAD [id number] 05/31/2017 16:48:00 05/31/2017 19:10:00 DIS Emergency JAIME LAU APRN [facility] ER HIGH BP [id number] 08/13/2016 07:37:00 08/13/2016 15:40:00 DIS Outpatient KELLY RODRIGUEZ MD [facility] CATH ABN STRESS TEST [id number] 07/30/2016 11:51:00 07/30/2016 23:59:59 CLS Outpatient SISSY GÓMEZ [facility] CARD CAD,HTN,TR [id number] 01/25/2016 09:00:00 01/25/2016 23:59:59 CLS Preadmit KELLY RODRIGUEZ MD [facility] CR STEMI [id number] 01/21/2016 09:33:00 01/24/2016 00:01:00 DIS Outpatient KELLY RODRIGUEZ MD [facility] CR STEMI [id number] 09/26/2015 01:23:00 09/26/2015 10:35:00 DIS Inpatient DIONNE VILLEGAS FACC, MALI SANZ CCDS [facility] CSD CHEST PAIN,CAD [id number] 09/07/2015 15:24:00 09/07/2015 17:33:00 DIS Emergency JAIME LAU ADOBE FLEX DEVELOPER [facility] ER HEADACHE,WEAKNESS [id number] 03/20/2013 17:12:00 03/20/2013 20:23:00 DIS Emergency JEFF DO, BLAKE K [facility] ER WEAKNESS [id number] 09/04/2015 01:32:00 ACT Inpatient KELLY RODRIGUEZ MD [facility] ICU POST CATH, ST ELEVATION [id number] 07/14/2017 11:22:00 07/14/2017 23:59:00 DIS Outpatient KELLY RODRIGUEZ [id number] 05/07/2016 09:47:00 05/07/2016 23:59:00 DIS Outpatient Janet Stokes [id number] 05/06/2016 15:41:51 Document Registration
[2017-11-24 21:44] LABS: BASOPHILS % (AUTO) 0 % (0-10); EOSINOPHILS # (AUTO) 0.1 10^3/uL (0.0-0.3); EOSINOPHILS % (AUTO) 1 % (0-10); HEMATOCRIT 32 % (40-54); HEMOGLOBIN 10.9 G/DL (13.3-17.7); LYMPHOCYTES # (AUTO) 1.9 X 10^3 (1.0-4.0); LYMPHOCYTES % (AUTO) 33 % (12-44); MEAN CORPUSCULAR HEMOGLOBIN 29 PG (25-34); MEAN CORPUSCULAR HGB CONC 34 G/DL (32-36); MEAN CORPUSCULAR VOLUME 86 FL (80-99); MEAN PLATELET VOLUME 8.7 FL (7.4-10.4); MONOCYTES # (AUTO) 0.5 X 10^3 (0.0-1.0); MONOCYTES % (AUTO) 8 % (0-12); NEUTROPHILS # (AUTO) 3.4 X 10^3 (1.8-7.8); NEUTROPHILS % (AUTO) 58 % (42-75); PLATELET COUNT 227 10^3/uL (130-400); RED BLOOD COUNT 3.79 10^6/uL (4.35-5.85); RED CELL DISTRIBUTION WIDTH 12.5 % (10.0-14.5); WHITE BLOOD COUNT 5.9 10^3/uL (4.3-11.0)
[2017-11-24] MEDS ORDERED: NS IV 500 ML 500 ML IV SCH (21:45)
== END 2017-11-24 21:45 | disposition left against medical advice (07) ==
LOC: EDUNIT# 21:16 → ER 21:17
DX: R03.1 Nonspecific low blood-pressure reading (principal)
CPT/HCPCS: 36415; 85025

== ENCOUNTER 2018-02-09 02:08 | Inpatient (IN) | payer MEDICARE, MEDICAID ==
[~2018-02-09] VITALS: Ht 177.8 cm; Wt 85.4 kg
[2018-02-09] VITALS (27 sets, daily range): BP systolic 93–138; BP diastolic 51–79
[~2018-02-09 02:08] MED LIST changes: +METF-397 PO; -METF500T5 PO
--- OUTSIDE RECORDS SUMMARY | 2018-02-09 02:15 | XMS REPORT | Continuity of Care Document ---
Author Author [facility] Organization [facility] Address Unknown Phone Unavailable Allergies Active Description Code Type Severity Reaction Onset Reported/Identified Relationship to Patient Clinical Status Yes NO KNOWN DRUG ALLERGIES NO KNOWN DRUG ALLERG UNKNOWN Yes NO KNOWN DRUG ALLERGIES UNKNOWN NO KNOWN DRUG ALLERG Yes No Known Drug Allergies [id number] Drug Allergy Unknown N/A 11/10/2009 Medications There [...] MD Ot I25.10 ATHSCL HEART DISEASE OF [place] CORONARY 09/05/2015 KELLY RODRIGUEZ MD Ot I95.9 HYPOTENSION, UNSPECIFIED 09/05/2015 KELLY RODRIGUEZ MD Ot N18.9 CHRONIC KIDNEY DISEASE, UNSPECIFIED 09/05/2015 KELLY RODRIGUEZ MD Ot R57.8 OTHER SHOCK 09/07/2015 JAIME LAU APRN Ot I10 ESSENTIAL (PRIMARY) HYPERTENSION 09/07/2015 JAIME LAU APRN Ot R51 HEADACHE 09/11/2015 JAIME LAU APRN Ot I10 ESSENTIAL (PRIMARY) HYPERTENSION 09/11/2015 JAIME LAU APRN Ot R51 HEADACHE 09/11/2015 JAIME LAU LEATHER [employer] MAKER Ot I10 ESSENTIAL (PRIMARY) HYPERTENSION 09/11/2015 JAIME LAU LE[employer]KER Ot R51 HEADACHE 09/26/2015 DIONNE VILLEGAS FAC, ALI FACP CCDS Ot E11.9 TYPE 2 DIABETES MELLITUS WITHOUT COMPLIC 09/26/2015 DIONNE VILLEGAS FACC, ALI FACP CCDS Ot E78.5 HYPERLIPIDEMIA, UNSPECIFIED 09/26/2015 DIONNE VILLEGAS FACC, ALI FACP CCDS Ot E83.42 HYPOMAGNESEMIA 09/26/2015 DIONNE VILLEAGS FAC, ALI FACP CCDS Ot E87.1 HYPO-OSMOLALITY AND HYPONATREMIA 09/26/2015 DIONEN VILLEGAS FACC, ALI FACP CCDS Ot I10 ESSENTIAL (PRIMARY) HYPERTENSION 09/26/2015 DIONNE VILLEGAS FAC, ALI FACP CCDS Ot I25.10 ATHSCL HEART DISEASE OF [place] CORONARY 09/26/2015 DIONNE VILLEGAS FAC, ALI FACP [...] K Ot I25.10 ATHSCL HEART DISEASE OF [place] CORONARY 07/30/2016 SISSY GÓMEZ K Ot I25.10 ATHSCL HEART DISEASE OF [place] CORONARY 08/01/2016 DENNISE GÓMEZTH K Ot E78.2 MIXED HYPERLIPIDEMIA 08/01/2016 SISSY GÓMEZ K Ot I07.1 RHEUMATIC TRICUSPID INSUFFICIENCY 08/01/2016 SISSY GÓMEZ K Ot I10 ESSENTIAL (PRIMARY) HYPERTENSION 08/01/2016 SISSY GÓMEZ K Ot I25.10 ATHSCL HEART DISEASE OF [place] CORONARY 08/13/2016 SISSY GÓMEZ K Ot E78.2 MIXED HYPERLIPIDEMIA 08/13/2016 SISSY GÓMEZ K Ot I07.1 RHEUMATIC TRICUSPID INSUFFICIENCY 08/13/2016 DENNISE GÓMEZTH K Ot I10 ESSENTIAL (PRIMARY) HYPERTENSION 08/13/2016 DENNISE GÓMEZTH K Ot I25.10 ATHSCL HEART DISEASE OF [place] CORONARY 08/13/2016 MICHAEL VILLEGAS, KELLY Taylor Ot I25.2 OLD MYOCARDIAL INFARCTION 08/13/2016 KELLY RODRIGUEZ MD Ot Z09 ENCNTR FOR F/U EXAM AFT TRTMT FOR COND O 08/13/2016 SISSY GÓMEZ K Ot E78.2 MIXED HYPERLIPIDEMIA 08/13/2016 SISSY GÓMEZ K Ot I07.1 RHEUMATIC TRICUSPID INSUFFICIENCY 08/13/2016 SISSY GÓMEZ K Ot I10 ESSENTIAL (PRIMARY) HYPERTENSION 08/13/2016 SISSY GÓMEZ K Ot I25.10 ATHSCL HEART DISEASE OF [place] CORONARY 08/13/2016 KELLY RODRIGUEZ MD Ot I25.2 OLD MYOCARDIAL INFARCTION 08/13/2016 KELLY RODRIGUEZ MD Ot Z09 ENCNTR FOR F/U EXAM AFT TRTMT FOR COND O 08/13/2016 KELLY RODRIGUEZ MD Ot 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 08/13/2016 KELLY RODRIGUEZ MD Ot E78.5 HYPERLIPIDEMIA, UNSPECIFIED 08/13/2016 KELLY RODRIGUEZ MD Ot I12.9 HYPERTENSIVE CHRONIC KIDNEY DISEASE W ST 08/13/2016 KELLY RODRIGUEZ MD Ot I25.10 ATHSCL HEART DISEASE OF [place] CORONARY 08/13/2016 KELLY RODRIGUEZ MD Ot I25.2 OLD MYOCARDIAL INFARCTION 08/13/2016 KELLY RODRIGUEZ MD Ot I25.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 [place] 08/13/2016 KELLY RODRIGUEZ MD Ot N18.9 CHRONIC KIDNEY DISEASE, UNSPECIFIED 08/13/2016 KELLY RODRIGUEZ MD Ot R94.39 ABNORMAL RESULT OF OTHER CARDIOVASCULAR 08/13/2016 KELLY RODRIGUEZ MD Ot Z79.84 SENIOR TECHNICAL TRAINER (CURRENT) USE OF ORAL HYPOGLYC 08/13/2016 KELLY RODRIGUEZ MD Ot Z79.899 OTHER SENIOR TECHNICAL TRAINER (CURRENT) DRUG THERAPY 08/13/2016 KELLY RODRIGUEZ MD Ot Z87.891 PERSONAL HISTORY OF NICOTINE DEPENDENCE 08/13/2016 KELLY RODRIGUEZ MD Ot Z95.5 PRESENCE OF CORONARY ANGIOPLASTY IMPLANT 08/19/2016 KELLY RODRIGUEZ MD Ot 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 08/19/2016 KELLY RODRIGUEZ MD Ot E78.5 HYPERLIPIDEMIA, UNSPECIFIED 08/19/2016 KELLY RODRIGUEZ MD Ot I12.9 HYPERTENSIVE CHRONIC KIDNEY DISEASE W ST 08/19/2016 KELLY RODRIGUEZ MD Ot I25.10 ATHSCL HEART DISEASE OF [place] CORONARY 08/19/2016 KELLY RODRIGUEZ MD Ot I25.2 OLD MYOCARDIAL INFARCTION 08/19/2016 KELLY RODRIGUEZ MD Ot I25.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 [place] 08/19/2016 KELLY RODRIGUEZ MD Ot N18.9 CHRONIC KIDNEY DISEASE, UNSPECIFIED 08/19/2016 KELLY RODRIGUEZ MD Ot R94.39 ABNORMAL RESULT OF OTHER CARDIOVASCULAR 08/19/2016 KELLY RODRIGUEZ MD Ot Z79.84 HALF-WAY (CURRENT) USE OF ORAL HYPOGLYC 08/19/2016 KELLY RODRIGUEZ MD, Ot Z79.899 OTHER SENIOR TECHNICAL TRAINER (CURRENT) DRUG THERAPY 08/19/2016 KELLY RODRIGUEZ MD, Ot Z87.891 PERSONAL HISTORY OF NICOTINE DEPENDENCE 08/19/2016 KELLY RODRIGUEZ MD Ot Z95.5 PRESENCE OF CORONARY ANGIOPLASTY IMPLANT 08/19/2016 SISSY GÓMEZ Ot E78.2 MIXED HYPERLIPIDEMIA 08/19/2016 SISSY GÓMEZ Ot I07.1 RHEUMATIC TRICUSPID INSUFFICIENCY 08/19/2016 SISSY GÓMEZ Ot I10 ESSENTIAL (PRIMARY) HYPERTENSION 08/19/2016 SISSY GÓMEZ Ot I25.10 ATHSCL HEART DISEASE OF [place] CORONARY 09/01/2016 SISSY GÓMEZ Ot E78.2 MIXED HYPERLIPIDEMIA 09/01/2016 SISSY GÓMEZ Ot I07.1 RHEUMATIC TRICUSPID INSUFFICIENCY 09/01/2016 SISSY GÓMEZ Ot I10 ESSENTIAL (PRIMARY) HYPERTENSION 09/01/2016 SISSY GÓMEZ Ot I25.10 ATHSCL HEART DISEASE OF [place] CORONARY 05/31/2017 SISSY GÓMEZ Ot E78.2 MIXED HYPERLIPIDEMIA 05/31/2017 SISSY GÓMEZ Ot I07.1 RHEUMATIC TRICUSPID INSUFFICIENCY 05/31/2017 SISSY GÓMEZ Ot I10 ESSENTIAL (PRIMARY) HYPERTENSION 05/31/2017 SISSY GÓMEZ Ot I25.10 ATHSCL HEART DISEASE OF [place] CORONARY 05/31/2017 KELLY RODRIGUEZ MD Ot I25.2 OLD MYOCARDIAL INFARCTION 05/31/2017 KELLY RODRIGUEZ MD, Ot Z09 ENCNTR FOR F/U EXAM AFT TRTMT FOR COND O 05/31/2017 JAIME LAU APRN Ot 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 05/31/2017 JAIME LAU APRN Ot I12.9 HYPERTENSIVE CHRONIC KIDNEY DISEASE W ST 05/31/2017 JAIME LAU APRN Ot I25.10 ATHSCL HEART DISEASE OF [place] CORONARY 05/31/2017 LAU, PETER J LEATHER [employer] MAKER Ot I25.2 OLD MYOCARDIAL INFARCTION 05/31/2017 JAIME LAU APRN Ot K21.9 GASTRO-ESOPHAGEAL REFLUX DISEASE WITHOUT 05/31/2017 JAIME LAU APRN Ot N18.9 CHRONIC KIDNEY DISEASE, UNSPECIFIED 05/31/2017 JAIME LAU APRN Ot Z79.82 HALF-WAY (CURRENT) USE OF ASPIRIN 05/31/2017 JAIME LAU APRN Ot Z87.891 PERSONAL HISTORY OF NICOTINE DEPENDENCE 05/31/2017 JAIME LAU APRN Ot Z90.49 ACQUIRED ABSENCE OF OTHER SPECIFIED PART 05/31/2017 JAIME LAU APRN Ot Z90.79 ACQUIRED ABSENCE OF OTHER GENITAL ORGAN( 05/31/2017 JAIME LAU APRN Ot Z95.5 PRESENCE OF CORONARY ANGIOPLASTY IMPLANT 06/02/2017 JAIME LAU APRN Ot 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 06/02/2017 JAIME LAU APRN Ot I12.9 HYPERTENSIVE CHRONIC KIDNEY DISEASE W ST 06/02/2017 JAIME LAU APRN Ot I25.10 ATHSCL HEART DISEASE OF [place] CORONARY 06/02/2017 JAIME LAU APRN Ot I25.2 OLD MYOCARDIAL INFARCTION 06/02/2017 JAIME LAU APRN Ot K21.9 GASTRO-ESOPHAGEAL REFLUX DISEASE WITHOUT 06/02/2017 JAIME LAU APRN Ot N18.9 CHRONIC KIDNEY DISEASE, UNSPECIFIED 06/02/2017 JAIME LAU APRN Ot Z79.82 HALF-WAY (CURRENT) USE OF ASPIRIN 06/02/2017 JAIME LAU [...] GÓMEZ Ot I25.10 ATHSCL HEART DISEASE OF [place] CORONARY 07/30/2017 KELLY RODRIGUEZ MD Ot I25.2 OLD MYOCARDIAL INFARCTION 07/30/2017 MICHAEL VILLEGAS, KELLY Taylor Ot Z09 ENCNTR FOR F/U EXAM AFT TRTMT FOR COND O 09/10/2017 SISSY GÓMEZ Ot E78.5 HYPERLIPIDEMIA, UNSPECIFIED 09/10/2017 SISSY GÓMEZ Ot 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 09/10/2017 SISSY GÓMEZ Ot I10 ESSENTIAL (PRIMARY) HYPERTENSION 09/10/2017 SISSY GÓMEZ Ot I25.10 ATHSCL HEART DISEASE OF [place] CORONARY 09/10/2017 SISSY GÓMEZ Ot R07.89 OTHER CHEST PAIN 09/30/2017 SISSY GÓMEZ Ot E78.5 HYPERLIPIDEMIA, UNSPECIFIED 09/30/2017 SISSY GÓMEZ Ot 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 09/30/2017 SISSY GÓMEZ Ot I10 ESSENTIAL (PRIMARY) HYPERTENSION 09/30/2017 SISSY GÓMEZ Ot I25.10 ATHSCL HEART DISEASE OF [place] CORONARY 09/30/2017 SISSY GÓMEZ K Ot R07.89 OTHER CHEST PAIN 10/07/2017 SISSY GÓMEZ Ot E78.5 HYPERLIPIDEMIA, UNSPECIFIED 10/07/2017 SISSY GÓMEZ Ot 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 10/07/2017 SISSY GÓMEZ Ot I10 ESSENTIAL (PRIMARY) HYPERTENSION 10/07/2017 SISSY GÓMEZ Ot I25.10 ATHSCL HEART DISEASE OF [place] CORONARY 10/07/2017 SISSY GÓMEZ Ot R07.89 OTHER CHEST PAIN 11/24/2017 Ot R03.1 NONSPECIFIC LOW BLOOD-PRESSURE READING 01/02/2018 Ot R03.1 NONSPECIFIC LOW BLOOD-PRESSURE READING Procedures Code Description Performed By Performed On [id number] DILATION OF 1 COR ART WITH DRUG-ELUT INT 09/04/2015 [id number] DILATION OF CORONARY ARTERY, TWO SITES, 09/04/2015 [id number] MEASURE OF CARDIAC SAMPL PRESSURE, L H 09/04/2015 [id number] FLUOROSCOPY OF MULT COR ART USING L OSM 09/04/2015 [id number] FLUOROSCOPY OF LEFT HEART USING LOW OSMO [...] 8.40 % 5.40-6.60 AvGlu 222 mg/dL 70-110 Complete blood count (CBC) with automated white blood cell (WBC) differential - 11/24/17 21:35 Blood leukocytes automated count (number/volume) 5.9 10*3/uL 4.3-11.0 Blood erythrocytes automated count (number/volume) 3.79 10*6/uL 4.35-5.85 Venous blood hemoglobin measurement (mass/volume) 10.9 g/dL 13.3-17.7 Blood hematocrit (volume fraction) 32 % 40-54 Automated erythrocyte mean corpuscular volume 86 [foz_us] 80-99 Automated erythrocyte mean corpuscular hemoglobin (mass per erythrocyte) 29 pg 25-34 Automated erythrocyte mean corpuscular hemoglobin concentration measurement ( mass/volume) 34 g/dL 32-36 Automated erythrocyte distribution width ratio 12.5 % 10.0-14.5 Automated blood platelet count (count/volume) 227 10*3/uL 130-400 Automated blood platelet mean volume measurement 8.7 [foz_us] 7.4-10.4 Automated blood neutrophils/100 leukocytes 58 % 42-75 Automated blood lymphocytes/100 leukocytes 33 % 12-44 Blood monocytes/100 leukocytes 8 % 0-12 Automated blood eosinophils/100 leukocytes 1 % 0-10 Automated blood basophils/100 leukocytes 0 % 0-10 Blood neutrophils automated count (number/volume) 3.4 10*3 1.8-7.8 Blood lymphocytes automated count (number/volume) 1.9 10*3 1.0-4.0 Blood monocytes automated count (number/volume) 0.5 10*3 0.0-1.0 Automated eosinophil count 0.1 10*3/uL 0.0-0.3 Automated blood basophil count (count/volume) 0.0 10*3/uL 0.0-0.1 Encounters ACCT No. Visit Date/Time Discharge Status Pt. Type Provider Facility Loc./Unit Complaint [id number] 09/09/2017 09:19:00 09/09/2017 23:59:59 CLS Outpatient SISSY GÓMEZ [facility] CARD I25.10 CAD [id number] 05/31/2017 16:48:00 05/31/2017 19:10:00 DIS Emergency JAIME LAU APRN [facility] ER HIGH BP [id number] 08/13/2016 07:37:00 08/13/2016 15:40:00 DIS Outpatient KELLY RODRIGUEZ MD [facility] CATH ABN STRESS TEST [id number] 07/30/2016 11:51:00 07/30/2016 23:59:59 CLS Outpatient SISSY GÓMEZ [facility] CARD CAD,HTN,TR [id number] 01/25/2016 09:00:00 01/25/2016 23:59:59 CLS Preadmit KELLY RODRIGUEZ MD [facility] CR STEMI [id number] 01/21/2016 09:33:00 01/24/2016 00:01:00 DIS Outpatient KELLY RODRIGUEZ MD [facility] CR STEMI [id number] 09/26/2015 01:23:00 09/26/2015 10:35:00 DIS Inpatient DIONNE VILLEGAS FACC, MALI SANZ CCDS [facility] CSD CHEST PAIN,CAD [id number] 09/07/2015 15:24:00 09/07/2015 17:33:00 DIS Emergency JAIME LAU APRN [facility] ER HEADACHE,WEAKNESS [id number] 03/20/2013 17:12:00 03/20/2013 20:23:00 DIS Emergency JEFF BLAKE Ackerman [facility] ER WEAKNESS [id number] 02/09/2018 02:10:00 ACT Emergency VINCE VILLEGAS, LUCY Espinoza [facility] ER WEAKNESS [id number] 11/24/2017 21:47:00 Document Registration [id number] 09/04/2015 01:32:00 ACT Inpatient KELLY RODRIGUEZ MD [facility] ICU POST CATH, ST ELEVATION [id number] 07/14/2017 11:22:00 07/14/2017 23:59:00 DIS Outpatient KELLY RODRIGUEZ [id number] 05/07/2016 09:47:00 05/07/2016 23:59:00 DIS Outpatient Janet Stokes [id number] 05/06/2016 15:41:51 Document Registration
[2018-02-09] MEDS ORDERED: ASPIRIN 81 MG CHEW (CHILDREN'S ASA) ONE (02:30)
[2018-02-09] MEDS ORDERED: NS IV 1000 ML 1,000 ML IV ONE ×2 (02:37→03:32)
[2018-02-09 02:44] LABS: BASOPHILS % (AUTO) 0 % (0-10); EOSINOPHILS # (AUTO) 0.1 10^3/uL (0.0-0.3); EOSINOPHILS % (AUTO) 1 % (0-10); HEMATOCRIT 32 % (40-54); HEMOGLOBIN 10.9 G/DL (13.3-17.7); LYMPHOCYTES # (AUTO) 2.4 X 10^3 (1.0-4.0); LYMPHOCYTES % (AUTO) 25 % (12-44); MEAN CORPUSCULAR HEMOGLOBIN 29 PG (25-34); MEAN CORPUSCULAR HGB CONC 34 G/DL (32-36); MEAN CORPUSCULAR VOLUME 86 FL (80-99); MEAN PLATELET VOLUME 9.2 FL (7.4-10.4); MONOCYTES # (AUTO) 0.6 X 10^3 (0.0-1.0); MONOCYTES % (AUTO) 6 % (0-12); NEUTROPHILS # (AUTO) 6.8 X 10^3 (1.8-7.8); NEUTROPHILS % (AUTO) 68 % (42-75); PLATELET COUNT 211 10^3/uL (130-400); RED BLOOD COUNT 3.79 10^6/uL (4.35-5.85); RED CELL DISTRIBUTION WIDTH 12.4 % (10.0-14.5); WHITE BLOOD COUNT 9.9 10^3/uL (4.3-11.0)
[2018-02-09] MEDS ORDERED: ASPIRIN 81 MG CHEW (CHILDREN'S ASA) PO ONE (02:45)
[2018-02-09 02:49] LABS: PROTHROMBIN TIME PATIENT 13.6 SEC (12.2-14.7)
[2018-02-09 02:58] LABS: ALBUMIN 3.4 GM/DL (3.2-4.5); BILIRUBIN,TOTAL 0.3 MG/DL (0.1-1.0); CALCIUM 8.7 MG/DL (8.5-10.1); CREATININE SERUM 1.99 MG/DL (0.60-1.30); MAGNESIUM 2.1 MG/DL (1.8-2.4); POTASSIUM 3.9 MMOL/L (3.6-5.0); TOTAL PROTEIN 6.1 GM/DL (6.4-8.2)
[2018-02-09] MEDS ORDERED: ONDANSETRON 4 MG/2 ML (SDV) Z0FRAN IVP ONE (03:00)
[2018-02-09 03:04] LABS: MYOGLOBIN SERUM 697.7 NG/ML (10.0-92.0)
[2018-02-09] MEDS ORDERED: ENOXAPARIN 80 MG/0.8 ML (LOVENOX) SYR SC ONE (03:30)
--- NOTE | 2018-02-09 03:30 | ED Chest Pain ---
General Chief Complaint: Neurological Problems Stated Complaint: WEAKNESS Source: patient, old records Exam Limitations: no limitations History of Present Illness Date Seen by Provider: Feb 09, 2018 Time Seen by Provider: 02:20 Initial Comments This 72-year-old gentleman presents to the emergency room with primary complaint of weakness and dry heaves. He is notably diaphoretic. He states symptoms started on Thursday evening when he was experiencing some mild chest pain. Yesterday he went to supper and a restaurant and then experienced "heartburn" after the meal. He had taken his blood pressure medication and then felt that his blood pressure was low. He reports blood pressure at home was 100/69. He did have some lightheadedness upon standing. He is not having any chest pain at present. He has a known history of coronary artery disease. His last angiography was July of last year. See report for more details. Dr. Dsouza is his national sales executive and Dr. Ojeda is his primary care provider. Allergies and Home Medications Allergies Coded Allergies: No Known Drug Allergies (Unverified , 11/10/09) Home Medications Aspirin 81 Mg Tab.chew, 81 MG PO DAILY, (Reported) Atorvastatin Calcium 80 Mg Tablet, 80 MG PO HS, (Reported) Biotin 2,500 Mcg Capsule, 5,000 MCG PO DAILY, (Reported) TAKES 2 (2,500 MCG) CAPSULES Carvedilol 12.5 Mg Tablet, 12.5 MG PO BID, (Reported) Hydrochlorothiazide 12.5 Mg Tablet, 12.5 MG PO DAILY Prescribed by: JAIME LAU on 05/31/17 1850 Lisinopril 10 Mg Tablet, 10 MG PO DAILY, (Reported) Multivitamin 1 Each Tablet, 1 TAB PO DAILY, (Reported) [place]-3/Dha/Epa/Fish Oil 1 Each Capsule, 1,000 MG PO DAILY, (Reported) Omeprazole Magnesium 20 Mg Tablet.dr, 20 MG PO DAILY PRN for INDIGESTION, ( Reported) Sitagliptin Phosphate 50 Mg Tablet, 50 MG PO DAILY, (Reported) Ticagrelor 90 Mg Tablet, 90 MG PO BID, (Reported) Patient Home Medication List Home Medication List Reviewed: Yes Review of Systems Review of Systems Constitutional: see HPI, diaphoresis, weakness Respiratory: No Symptoms Reported Cardiovascular: See HPI Gastrointestinal: See HPI Genitourinary: No Symptoms Reported Musculoskeletal: no symptoms reported Skin: see HPI Psychiatric/Neurological: No Symptoms Reported Endocrine: No Symptoms Reported Hematologic/Lymphatic: No Symptoms Reported Past Whleelh-Jaylhk-Rykezj Hx Patient Social History Alcohol Use: Denies Use Recreational Drug Use: No Smoking Status: Former Smoker Type Used: Cigarettes Former Smoker, Quit: Aug 13, 1993 Recent Foreign Travel: No Contact w/Someone Who Travel: No Immunizations Up To Date Tetanus Booster (TDap): More than 5yrs Date of Pneumonia Vaccine: Mar 15, 2013 Past Medical History Surgeries: Yes Appendectomy, Cardiac, Coronary Stent, Prostatectomy Respiratory: No Cardiac: Yes Coronary Artery Disease, Heart Attack, Hypertension Neurological: No Reproductive Disorders: No Gastrointestinal: Yes Gastroesophageal Reflux Musculoskeletal: No Endocrine: Yes Diabetes, Non-Insulin dep Cancer: Yes Prostate Psychosocial: No Integumentary: No Blood Disorders: No Family Medical History No Pertinent Family Hx Physical Exam Vital Signs Vital Signs - First Documented 02/09/18 02:13 Temp 96.3 Pulse 59 Resp 12 B/P (MAP) 121/71 (88) Pulse Ox 94 O2 Delivery Room Air Capillary Refill : Height, Weight, BMI Height: 5'8.00" Weight: 150lbs. 0.0oz. 68.324137dg; 26.5 BMI Method:Estimated General Appearance: No Apparent Distress, WD/WN, Other (ill appearing and weak , diaphoretic) HEENT: PERRL/EOMI, Normal ENT Inspection Neck: Normal Inspection Respiratory: Lungs Clear, Normal Breath Sounds, No Accessory Muscle Use, No Respiratory Distress Cardiovascular: Regular Rate, Rhythm, No Edema, No Murmur, Normal Peripheral Pulses Gastrointestinal: Non Tender, Soft Extremity: Normal Capillary Refill, Normal Inspection, Non Tender, No Pedal Edema Neurologic/Psychiatric: Alert, Oriented x3, No Motor/Sensory Deficits, Normal Mood/Affect, licensed professional counselor II-XII Norm as Tested Skin: Normal Color, Cool, Diaphoresis Lymphatic: No Adenopathy Progress/Results/Core Measures Results/Orders Lab Results Laboratory Tests Test 02/09/18 02:26 02/09/18 02:30 Range/Units Glucometer 234 H 70-110 MG/DL White Blood Count 9.9 4.3-11.0 10^3/uL Red Blood Count 3.79 L 4.35-5.85 10^6/uL Hemoglobin 10.9 L 13.3-17.7 G/DL Hematocrit 32 L 40-54 % Mean Corpuscular Volume 86 80-99 FL Mean Corpuscular Hemoglobin 29 25-34 PG Mean Corpuscular Hemoglobin Concent 34 32-36 G/DL Red Cell Distribution Width 12.4 10.0-14.5 % Platelet Count 211 130-400 10^3/uL Mean Platelet Volume 9.2 7.4-10.4 FL Neutrophils (%) (Auto) 68 42-75 % Lymphocytes (%) (Auto) 25 12-44 % Monocytes (%) (Auto) 6 0-12 % Eosinophils (%) (Auto) 1 0-10 % Basophils (%) (Auto) 0 0-10 % Neutrophils # (Auto) 6.8 1.8-7.8 X 10^3 Lymphocytes # (Auto) 2.4 1.0-4.0 X 10^3 Monocytes # (Auto) 0.6 0.0-1.0 X 10^3 Eosinophils # (Auto) 0.1 0.0-0.3 10^3/uL Basophils # (Auto) 0.0 0.0-0.1 10^3/uL Prothrombin Time 13.6 12.2-14.7 SEC INR Comment 1.0 0.8-1.4 Activated Partial Thromboplast Time 26 24-35 SEC Sodium Level 134 L 135-145 MMOL/L Potassium Level 3.9 3.6-5.0 MMOL/L Chloride Level 104 98-107 MMOL/L Carbon Dioxide Level 17 L 21-32 MMOL/L Anion Gap 13 5-14 MMOL/L Blood Urea Nitrogen 46 H 7-18 MG/DL Creatinine 1.99 H 0.60-1.30 MG/DL Estimat Glomerular Filtration Rate 40 BUN/Creatinine Ratio 23 Glucose Level 235 H 70-105 MG/DL Calcium Level 8.7 8.5-10.1 MG/DL Corrected Calcium 9.2 8.5-10.1 MG/DL Magnesium Level 2.1 1.8-2.4 MG/DL Total Bilirubin 0.3 0.1-1.0 MG/DL Aspartate Amino Transf (AST/SGOT) 76 H 5-34 U/L Alanine Aminotransferase (ALT/SGPT) 60 H 0-55 U/L Alkaline Phosphatase 66 40-136 U/L Myoglobin 697.7 H 10.0-92.0 NG/ML Troponin I 5.55 *H <0.30 NG/ML Total Protein 6.1 L 6.4-8.2 GM/DL Albumin 3.4 3.2-4.5 GM/DL Lipase 53 8-78 U/L Micro Results Microbiology 02/09/18 Influenza Types A,B Antigen (QUINTIN) - Final, Complete My Orders Orders - LUCY CLARKE MD Aspirin Chewable Tablet (Baby Aspirin Ch (02/09/18 02:30) Cbc With Automated Diff (02/09/18 02:36) Magnesium (02/09/18 02:36) Chest 1 View, Ap/Pa Only (02/09/18 02:36) Ekg Tracing (02/09/18 02:36) Cardiac Profile 1 (02/09/18 02:36) Comprehensive Metabolic Panel (02/09/18 02:36) Myoglobin Serum (02/09/18 02:36) Protime With Inr (02/09/18 02:36) Partial Thromboplastin Time (02/09/18 02:36) O2 (02/09/18 02:36) Monitor-Rhythm Ecg Trace Only (02/09/18 02:36) Lipid Panel (02/10/18 06:00) Aspirin Chewable Tablet (Baby Aspirin Ch (02/09/18 02:45) Saline Lock/Iv-Start (02/09/18 02:36) Lipase (02/09/18 02:36) Ua Culture If Indicated (02/09/18 02:36) Influenza A And B Antigens (02/09/18 02:36) Saline Lock/Iv-Start (02/09/18 02:37) Ns Iv 1000 Ml (Sodium Chloride 0.9%) (02/09/18 02:37) Ondansetron Injection (Zofran Injectio (02/09/18 03:00) Enoxaparin Injection (Lovenox Injection) (02/09/18 03:30) Ns Iv 1000 Ml (Sodium Chloride 0.9%) (02/09/18 03:32) Medications Given in ED Current Medications Medications Dose Ordered Sig/Padma Route Start Time Stop Time Status Last Admin Dose Admin Aspirin 324 mg ONCE ONCE PO 02/09/18 02:45 02/09/18 02:46 DC 02/09/18 02:32 324 MG Enoxaparin Sodium 80 mg ONCE ONCE SC 02/09/18 03:30 02/09/18 03:31 DC 02/09/18 03:30 80 MG Ondansetron HCl 8 mg ONCE ONCE IVP 02/09/18 03:00 02/09/18 03:01 DC 02/09/18 03:01 8 MG Sodium Chloride 1,000 ml @ 0 mls/hr Q0M ONCE IV 02/09/18 02:37 02/09/18 02:38 DC 02/09/18 02:44 1,000 MLS/HR Sodium Chloride 1,000 ml @ 0 mls/hr Q0M ONCE IV 02/09/18 03:32 02/09/18 03:33 DC 02/09/18 03:34 1,000 MLS/HR Vital Signs/I&O 02/09/18 02:13 Temp 96.3 Pulse 59 Resp 12 B/P (MAP) 121/71 (88) Pulse Ox 94 O2 Delivery Room Air Progress Progress Note #1: Time: 03:25 Progress Note Chest pain protocol was initiated. Patient was given aspirin. Nitroglycerin was not administered due to marginal blood pressure. Patient was found to have a markedly elevated troponin. Case was discussed with Dr. Dsouza who would like Lovenox administered and patient prepared for angiography later in the morning. Progress Note #2: Time: 04:18 Progress Note Patient received Lovenox. He remained pain free throughout the course of his ER stay. Blood pressures were marginal and he received 2 L of IV normal saline. He had brief hypotension but blood pressure responded to fluid administration. Blood pressure just prior to transfer to the ICU was 96/59 with an MAP of 71. Initial ECG Impression Date: Feb 09, 2018 Initial ECG Impression Time: 02:24 Initial ECG Rate: 57 Comment Sinus rhythm with no ST elevation. There is minimal ST depression in the lateral leads. No abnormal intervals. Diagnostic Imaging Diagonstic Imaging: Xray Plain Films/CT/US/NM/MRI: chest Comments Elevation of the right hemidiaphragm. No acute abnormalities appreciated. Viewed by me but report not available. Departure Communication (Admissions) Time/Spoke to Admitting Phy: 03:20 Dr. Dsouza Impression Primary Impression: NSTEMI (non-ST elevated myocardial infarction) Additional Impression: Acute on chronic renal failure Qualified Codes: N17.9 - Acute kidney failure, unspecified; N18.9 - Chronic kidney disease, unspecified Disposition: ADMITTED INPATIENT Condition: Improved Admissions Decision to Admit Reason: Admit from ER (General) Decision to Admit/Date: Feb 09, 2018 Time/Decision to Admit Time: 03:20 Departure-Patient Inst. Referrals: SHUN OJEDA MD (PCP/Family) Primary Care Physician LUCY CLARKE MD Feb 09, 2018 03:30
--- OUTSIDE RECORDS SUMMARY | 2018-02-09 03:40 | XMS REPORT | Continuity of Care Document ---
Author Author [facility] Organization [facility] Address Unknown Phone Unavailable Allergies Active Description Code Type Severity Reaction Onset Reported/Identified Relationship to Patient Clinical Status Yes NO KNOWN DRUG ALLERGIES NO KNOWN DRUG ALLERG UNKNOWN Yes NO KNOWN DRUG ALLERGIES UNKNOWN NO KNOWN DRUG ALLERG Yes No Known Drug Allergies [id number] Drug Allergy Unknown N/A 11/10/2009 Medications There [...] MD Ot I25.10 ATHSCL HEART DISEASE OF [place] CORONARY 09/05/2015 KELLY RODRIGUEZ MD Ot I95.9 HYPOTENSION, UNSPECIFIED 09/05/2015 KELLY RODRIGUEZ MD Ot N18.9 CHRONIC KIDNEY DISEASE, UNSPECIFIED 09/05/2015 KELLY RODRIGUEZ MD Ot R57.8 OTHER SHOCK 09/07/2015 JAIME LAU APRN Ot I10 ESSENTIAL (PRIMARY) HYPERTENSION 09/07/2015 JAIME LAU APRN Ot R51 HEADACHE 09/11/2015 JAIME LAU APRN Ot I10 ESSENTIAL (PRIMARY) HYPERTENSION 09/11/2015 JAIME LAU APRN Ot R51 HEADACHE 09/11/2015 JAIME LAU HORTICULTURE/FLORICULTURE TEACHER Ot I10 ESSENTIAL (PRIMARY) HYPERTENSION 09/11/2015 JAIME LAU HORTICULTURE/FLORICULTURE TEACHER Ot R51 HEADACHE 09/26/2015 DIONNE VILLEGAS FAC, [...] CCDS Ot I25.10 ATHSCL HEART DISEASE OF [place] CORONARY 09/26/2015 DIONNE VILLEGAS FAC, ALI FACP [...] K Ot I25.10 ATHSCL HEART DISEASE OF [place] CORONARY 07/30/2016 SISSY GÓMEZ K Ot I25.10 ATHSCL HEART DISEASE OF [place] CORONARY 08/01/2016 DENNISE GÓMEZTH K Ot E78.2 MIXED HYPERLIPIDEMIA 08/01/2016 SISSY GÓMEZ K Ot I07.1 RHEUMATIC TRICUSPID INSUFFICIENCY 08/01/2016 SISSY GÓMEZ K Ot I10 ESSENTIAL (PRIMARY) HYPERTENSION 08/01/2016 SISSY GÓMEZ K Ot I25.10 ATHSCL HEART DISEASE OF [place] CORONARY 08/13/2016 SISSY GÓMEZ K Ot E78.2 MIXED HYPERLIPIDEMIA 08/13/2016 SISSY GÓMEZ K Ot I07.1 RHEUMATIC TRICUSPID INSUFFICIENCY 08/13/2016 EDNNISE GÓMEZTH K Ot I10 ESSENTIAL (PRIMARY) HYPERTENSION 08/13/2016 DENNISE GÓMEZTH K Ot I25.10 ATHSCL HEART DISEASE OF [place] CORONARY 08/13/2016 MICHAEL VILLEGAS, KELLY Taylor Ot I25.2 OLD MYOCARDIAL INFARCTION 08/13/2016 KELLY RODRIGUEZ MD Ot Z09 ENCNTR FOR F/U EXAM AFT TRTMT FOR COND O 08/13/2016 SISSY GÓMEZ K Ot E78.2 MIXED HYPERLIPIDEMIA 08/13/2016 SISSY GÓMEZ K Ot I07.1 RHEUMATIC TRICUSPID INSUFFICIENCY 08/13/2016 SISSY GÓMEZ K Ot I10 ESSENTIAL (PRIMARY) HYPERTENSION 08/13/2016 SISSY GÓMEZ K Ot I25.10 ATHSCL HEART DISEASE OF [place] CORONARY 08/13/2016 KELLY RODRIGUEZ MD Ot I25.2 OLD MYOCARDIAL INFARCTION 08/13/2016 KELLY RODRIGUEZ MD Ot Z09 ENCNTR FOR F/U EXAM AFT TRTMT FOR COND O 08/13/2016 KELLY RODRIGUEZ MD Ot 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 08/13/2016 KELLY RODRIGUEZ MD Ot E78.5 HYPERLIPIDEMIA, UNSPECIFIED 08/13/2016 KELLY RODRIGUEZ MD Ot I12.9 HYPERTENSIVE CHRONIC KIDNEY DISEASE W ST 08/13/2016 KELLY RODRIGUEZ MD Ot I25.10 ATHSCL HEART DISEASE OF [place] CORONARY 08/13/2016 KELLY RODRIGUEZ MD Ot I25.2 OLD MYOCARDIAL INFARCTION 08/13/2016 KELLY RODRIGUEZ MD Ot I25.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 [place] 08/13/2016 KELLY RODRIGUEZ MD Ot N18.9 CHRONIC KIDNEY DISEASE, UNSPECIFIED 08/13/2016 KELLY RODRIGUEZ MD Ot R94.39 ABNORMAL RESULT OF OTHER CARDIOVASCULAR 08/13/2016 KELLY RODRIGUEZ MD Ot Z79.84 TRIGONOMETRY TUTOR (CURRENT) USE OF ORAL HYPOGLYC 08/13/2016 KELLY RODRIGUEZ MD Ot Z79.899 OTHER TRIGONOMETRY TUTOR (CURRENT) DRUG THERAPY 08/13/2016 KELLY RODRIGUEZ MD Ot Z87.891 PERSONAL HISTORY OF NICOTINE DEPENDENCE 08/13/2016 KELLY RODRIGUEZ MD Ot Z95.5 PRESENCE OF CORONARY ANGIOPLASTY IMPLANT 08/19/2016 KELLY RODRIGUEZ MD Ot 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 08/19/2016 KELLY RODRIGUEZ MD Ot E78.5 HYPERLIPIDEMIA, UNSPECIFIED 08/19/2016 KELLY RODRIGUEZ MD Ot I12.9 HYPERTENSIVE CHRONIC KIDNEY DISEASE W ST 08/19/2016 KELLY RODRIGUEZ MD Ot I25.10 ATHSCL HEART DISEASE OF [place] CORONARY 08/19/2016 KELLY RODRIGUEZ MD Ot I25.2 OLD MYOCARDIAL INFARCTION 08/19/2016 KELLY RODRIGUEZ MD Ot I25.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 [place] 08/19/2016 KELLY RODRIGUEZ MD Ot N18.9 CHRONIC KIDNEY DISEASE, UNSPECIFIED 08/19/2016 KELLY RODRIGUEZ MD Ot R94.39 ABNORMAL RESULT OF OTHER CARDIOVASCULAR 08/19/2016 KELLY RODRIGUEZ MD Ot Z79.84 ALF (CURRENT) USE OF ORAL HYPOGLYC 08/19/2016 KELLY RODRIGUEZ MD, Ot Z79.899 OTHER TRIGONOMETRY TUTOR (CURRENT) DRUG THERAPY 08/19/2016 KELLY RODRIGUEZ MD, Ot Z87.891 PERSONAL HISTORY OF NICOTINE DEPENDENCE 08/19/2016 KELLY RODRIGUEZ MD Ot Z95.5 PRESENCE OF CORONARY ANGIOPLASTY IMPLANT 08/19/2016 SISSY GÓMEZ Ot E78.2 MIXED HYPERLIPIDEMIA 08/19/2016 SISSY GÓMEZ Ot I07.1 RHEUMATIC TRICUSPID INSUFFICIENCY 08/19/2016 SISSY GÓMEZ Ot I10 ESSENTIAL (PRIMARY) HYPERTENSION 08/19/2016 SISSY GÓMEZ Ot I25.10 ATHSCL HEART DISEASE OF [place] CORONARY 09/01/2016 SISSY GÓMEZ Ot E78.2 MIXED HYPERLIPIDEMIA 09/01/2016 SISSY GÓMEZ Ot I07.1 RHEUMATIC TRICUSPID INSUFFICIENCY 09/01/2016 SISSY GÓMEZ Ot I10 ESSENTIAL (PRIMARY) HYPERTENSION 09/01/2016 SISSY GÓMEZ Ot I25.10 ATHSCL HEART DISEASE OF [place] CORONARY 05/31/2017 SISSY GÓMEZ Ot E78.2 MIXED HYPERLIPIDEMIA 05/31/2017 SISSY GÓMEZ Ot I07.1 RHEUMATIC TRICUSPID INSUFFICIENCY 05/31/2017 SISSY GÓMEZ Ot I10 ESSENTIAL (PRIMARY) HYPERTENSION 05/31/2017 SISSY GÓMEZ Ot I25.10 ATHSCL HEART DISEASE OF [place] CORONARY 05/31/2017 KELLY RODRIGUEZ MD Ot I25.2 OLD MYOCARDIAL INFARCTION 05/31/2017 KELLY RODRIGUEZ MD, Ot Z09 ENCNTR FOR F/U EXAM AFT TRTMT FOR COND O 05/31/2017 JAIME LAU APRN Ot 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 05/31/2017 JAIME LAU APRN Ot I12.9 HYPERTENSIVE CHRONIC KIDNEY DISEASE W ST 05/31/2017 JAIME LAU APRN Ot I25.10 ATHSCL HEART DISEASE OF [place] CORONARY 05/31/2017 LAU, PETER J HORTICULTURE/FLORICULTURE TEACHER Ot I25.2 OLD MYOCARDIAL INFARCTION 05/31/2017 JAIME LAU APRN Ot K21.9 GASTRO-ESOPHAGEAL REFLUX DISEASE WITHOUT 05/31/2017 JAIME LAU APRN Ot N18.9 CHRONIC KIDNEY DISEASE, UNSPECIFIED 05/31/2017 JAIME LAU APRN Ot Z79.82 ALF (CURRENT) USE OF ASPIRIN 05/31/2017 JAIME LAU APRN Ot Z87.891 PERSONAL HISTORY OF NICOTINE DEPENDENCE 05/31/2017 JAIME LAU APRN Ot Z90.49 ACQUIRED ABSENCE OF OTHER SPECIFIED PART 05/31/2017 JAIME LAU APRN Ot Z90.79 ACQUIRED ABSENCE OF OTHER GENITAL ORGAN( 05/31/2017 JAIME LAU APRN Ot Z95.5 PRESENCE OF CORONARY ANGIOPLASTY IMPLANT 06/02/2017 JAIME LAU APRN Ot 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 06/02/2017 JAIME LAU APRN Ot I12.9 HYPERTENSIVE CHRONIC KIDNEY DISEASE W ST 06/02/2017 JAIME LAU APRN Ot I25.10 ATHSCL HEART DISEASE OF [place] CORONARY 06/02/2017 JAIME LAU APRN Ot I25.2 OLD MYOCARDIAL INFARCTION 06/02/2017 JAIME LAU APRN Ot K21.9 GASTRO-ESOPHAGEAL REFLUX DISEASE WITHOUT 06/02/2017 JAIME LAU APRN Ot N18.9 CHRONIC KIDNEY DISEASE, UNSPECIFIED 06/02/2017 JAIME LAU APRN Ot Z79.82 ALF (CURRENT) USE OF ASPIRIN 06/02/2017 JAIME LAU [...] GÓMEZ Ot I25.10 ATHSCL HEART DISEASE OF [place] CORONARY 07/30/2017 KELLY RODRIGUEZ MD Ot I25.2 OLD MYOCARDIAL INFARCTION 07/30/2017 MICHAEL VILLEGAS, KELLY Taylor Ot Z09 ENCNTR FOR F/U EXAM AFT TRTMT FOR COND O 09/10/2017 SISSY GÓMEZ Ot E78.5 HYPERLIPIDEMIA, UNSPECIFIED 09/10/2017 SISSY GÓMEZ Ot 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 09/10/2017 SISSY GÓMEZ Ot I10 ESSENTIAL (PRIMARY) HYPERTENSION 09/10/2017 SISSY GÓMEZ Ot I25.10 ATHSCL HEART DISEASE OF [place] CORONARY 09/10/2017 SISSY GÓMEZ Ot R07.89 OTHER CHEST PAIN 09/30/2017 SISSY GÓMEZ Ot E78.5 HYPERLIPIDEMIA, UNSPECIFIED 09/30/2017 SISSY GÓMEZ Ot 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 09/30/2017 SISSY GÓMEZ Ot I10 ESSENTIAL (PRIMARY) HYPERTENSION 09/30/2017 SISSY GÓMEZ Ot I25.10 ATHSCL HEART DISEASE OF [place] CORONARY 09/30/2017 SISSY GÓMEZ K Ot R07.89 OTHER CHEST PAIN 10/07/2017 SISSY GÓMEZ Ot E78.5 HYPERLIPIDEMIA, UNSPECIFIED 10/07/2017 SISSY GÓMEZ Ot 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 10/07/2017 SISSY GÓMEZ Ot I10 ESSENTIAL (PRIMARY) HYPERTENSION 10/07/2017 SISSY GÓMEZ Ot I25.10 ATHSCL HEART DISEASE OF [place] CORONARY 10/07/2017 SISSY GÓMEZ Ot R07.89 OTHER CHEST PAIN 11/24/2017 Ot R03.1 NONSPECIFIC LOW BLOOD-PRESSURE READING 01/02/2018 Ot R03.1 NONSPECIFIC LOW BLOOD-PRESSURE READING Procedures Code Description Performed By Performed On [id number] DILATION OF 1 COR ART WITH DRUG-ELUT INT 09/04/2015 [id number] DILATION OF CORONARY ARTERY, TWO SITES, 09/04/2015 [id number] MEASURE OF CARDIAC SAMPL PRESSURE, L H 09/04/2015 [id number] FLUOROSCOPY OF MULT COR ART USING L OSM 09/04/2015 [id number] FLUOROSCOPY OF LEFT HEART USING LOW OSMO [...] blood basophil count (count/volume) 0.0 10*3/uL 0.0-0.1 Capillary blood glucose measurement by glucometer (mass/volume) - 02/09/18 02: 26 Capillary blood glucose measurement by glucometer (mass/volume) 234 mg/dL 70-110 Complete blood count (CBC) with automated white blood cell (WBC) differential - 02/09/18 02:30 Blood leukocytes automated count (number/volume) 9.9 10*3/uL 4.3-11.0 Blood erythrocytes automated count (number/volume) 3.79 10*6/uL 4.35-5.85 Venous blood hemoglobin measurement (mass/volume) 10.9 g/dL 13.3-17.7 Blood hematocrit (volume fraction) 32 % 40-54 Automated erythrocyte mean corpuscular volume 86 [foz_us] 80-99 Automated erythrocyte mean corpuscular hemoglobin (mass per erythrocyte) 29 pg 25-34 Automated erythrocyte mean corpuscular hemoglobin concentration measurement ( mass/volume) 34 g/dL 32-36 Automated erythrocyte distribution width ratio 12.4 % 10.0-14.5 Automated blood platelet count (count/volume) 211 10*3/uL 130-400 Automated blood platelet mean volume measurement 9.2 [foz_us] 7.4-10.4 Automated blood neutrophils/100 leukocytes 68 % 42-75 Automated blood lymphocytes/100 leukocytes 25 % 12-44 Blood monocytes/100 leukocytes 6 % 0-12 Automated blood eosinophils/100 leukocytes 1 % 0-10 Automated blood basophils/100 leukocytes 0 % 0-10 Blood neutrophils automated count (number/volume) 6.8 10*3 1.8-7.8 Blood lymphocytes automated count (number/volume) 2.4 10*3 1.0-4.0 Blood monocytes automated count (number/volume) 0.6 10*3 0.0-1.0 Automated eosinophil count 0.1 10*3/uL 0.0-0.3 Automated blood basophil count (count/volume) 0.0 10*3/uL 0.0-0.1 PT panel in platelet poor plasma by coagulation assay - 02/09/18 02:30 Prothrombin time (PT) in platelet poor plasma by coagulation assay 13.6 s 12.2-14.7 INR in platelet poor plasma or blood by coagulation assay 1.0 0.8-1.4 Activated partial thromboplastin time (aPTT) in platelet poor plasma bycoagulation assay - 02/09/18 02:30 Activated partial thromboplastin time (aPTT) in platelet poor plasma bycoagulation assay 26 s 24-35 Comprehensive metabolic panel - 02/09/18 02:30 Serum or plasma sodium measurement (moles/volume) 134 mmol/L 135-145 Serum or plasma potassium measurement (moles/volume) 3.9 mmol/L 3.6-5.0 Serum or plasma chloride measurement (moles/volume) 104 mmol/L 98-107 Carbon dioxide 17 mmol/L 21-32 Serum or plasma anion gap determination (moles/volume) 13 mmol/L 5-14 Serum or plasma urea nitrogen measurement (mass/volume) 46 mg/dL 7-18 Serum or plasma creatinine measurement (mass/volume) 1.99 mg/dL 0.60-1.30 Serum or plasma urea nitrogen/creatinine mass ratio 23 NRG Serum or plasma creatinine measurement with calculation of estimated glomerular filtration rate 40 NRG Serum or plasma glucose measurement (mass/volume) 235 mg/dL 70-105 Serum or plasma calcium measurement (mass/volume) 8.7 mg/dL 8.5-10.1 Serum or plasma total bilirubin measurement (mass/volume) 0.3 mg/dL 0.1-1.0 Serum or plasma alkaline phosphatase measurement (enzymatic activity/volume) 66 U/L 40-136 Serum or plasma aspartate aminotransferase measurement (enzymatic activity/ volume) 76 U/L 5-34 Serum or plasma alanine aminotransferase measurement (enzymatic activity/volume ) 60 U/L 0-55 Serum or plasma protein measurement (mass/volume) 6.1 g/dL 6.4-8.2 Serum or plasma albumin measurement (mass/volume) 3.4 g/dL 3.2-4.5 CALCIUM CORRECTED 9.2 mg/dL 8.5-10.1 Magnesium - 02/09/18 02:30 Magnesium 2.1 mg/dL 1.8-2.4 Serum or plasma troponin i.cardiac measurement (mass/volume) - 02/09/18 02:30 Serum or plasma troponin i.cardiac measurement (mass/volume) 5.55 ng /mL <0.30 Myoglobin, serum - 02/09/18 02:30 Myoglobin, serum 697.7 ng/mL 10.0-92.0 Lipase - 02/09/18 02:30 Lipase 53 U/L 8-78 Influenza virus A and B antigen detection - 02/09/18 02:30 FLU RESULT NEGATIVE FOR INFLUENZA A AND B ANTIGENS BY IA NRG Encounters ACCT No. Visit Date/Time Discharge Status Pt. Type Provider Facility Loc./Unit Complaint [id number] 09/09/2017 09:19:00 09/09/2017 23:59:59 CLS Outpatient SISSY GÓMEZ [facility] CARD I25.10 CAD [id number] 05/31/2017 16:48:00 05/31/2017 19:10:00 DIS Emergency JAIME LAU APRN [facility] ER HIGH BP [id number] 08/13/2016 07:37:00 08/13/2016 15:40:00 DIS Outpatient KELLY RODRIGUEZ MD [facility] CATH ABN STRESS TEST [id number] 07/30/2016 11:51:00 07/30/2016 23:59:59 CLS Outpatient SISSY GÓMEZ [facility] CARD CAD,HTN,TR [id number] 01/25/2016 09:00:00 01/25/2016 23:59:59 CLS Preadmit KELLY RODRIGUEZ MD [facility] CR STEMI [id number] 01/21/2016 09:33:00 01/24/2016 00:01:00 DIS Outpatient KELLY RODRIGUEZ MD [facility] CR STEMI [id number] 09/26/2015 01:23:00 09/26/2015 10:35:00 DIS Inpatient DIONNE VILLEGAS FACC, MALI SANZ CCDS [facility] CSD CHEST PAIN,CAD [id number] 09/07/2015 15:24:00 09/07/2015 17:33:00 DIS Emergency JAIME LAU APRN [facility] ER HEADACHE,WEAKNESS [id number] 03/20/2013 17:12:00 03/20/2013 20:23:00 DIS Emergency JEFF DO, BLAKE K [facility] ER WEAKNESS [id number] 02/09/2018 03:34:00 ACT Inpatient KELLY RODRIGUEZ MD [facility] ICU NSTEMI [id number] 11/24/2017 21:47:00 Document Registration [id number] 09/04/2015 01:32:00 ACT Inpatient KELLY RODRIGUEZ MD [facility] ICU POST CATH, ST ELEVATION [id number] 07/14/2017 11:22:00 07/14/2017 23:59:00 DIS Outpatient KELLY RODRIGUEZ [id number] 05/07/2016 09:47:00 05/07/2016 23:59:00 DIS Outpatient Janet Stokes [id number] 05/06/2016 15:41:51 Document Registration
[2018-02-09] MEDS ORDERED: morphine INJ 4 MG/ML 1 ML (VIAL/SYRINGE) IV PRN (05:15)
[2018-02-09] MEDS ORDERED: NS IV 1000 ML 1,000 ML IV SCH (05:15)
[2018-02-09] MEDS ORDERED: ONDANSETRON 4 MG/2 ML (SDV) Z0FRAN IV PRN (05:15)
--- NOTE | 2018-02-09 05:40 | Cardiology History & Physical ---
HPI-Cardiology Cardiology Consultation Date of Consultation 02/09/18 Date of Admission Time Seen by Provider: 05:34 Indication: Subacute myocardial infarction HPI 72 years old gentleman with known history of coronary artery disease, has been in his usual state of health until 2 days ago, he reported having some discomfort in his chest felt that it was indigestion about 2 days ago and felt extremely weak and diaphoretic. Since then he has been getting lightheaded and having no energy. Denied any chest pain. No palpitation, admit having dizziness and lightheadedness. No full syncope was reported. Has been compliant with his medication. PMH-Cardiology Immunizations Up To Date Tetanus Booster (DTap): More than 5yrs Date of Pneumonia Vaccine: Mar 15, 2013 Seasonal Allergies Seasonal Allergies: No Surgeries Yes Appendectomy Respiratory No Cardiovascular Yes High Cholesterol, Hypertension, Coronary Artery Disease Neurological No Reproductive System Hx Reproductive Disorders: No Genitourinary No Gastrointestinal Yes Gastroesophageal Reflux Musculoskeletal No Endocrine Yes Diabetes, Non-Insulin dep HEENT No Cancer Yes Prostate Did You Recieve Any Treatments: Yes Type of Treatment: Radiation Psychosocial No Integumentary No Blood Transfusions No Other PMHx past medical history as discussed below Social History Patient Social History Marrital Status: Alcohol Use: Denies Use Recreational Drug Use: No Recent Foreign Travel: No Contact w/other who traveled: No Recent Infectious Disease Expo: No Family Hx Significant Family History: No Pertinent Family Hx Family History: Bone cancer G8 BROTHER Diabetes mellitus 19 MOTHER ROS-Cardiology Review of Systems General: No Chills, No Night Sweats; Fatigue, Malaise; No Appetite HEENT: No Head Aches, No Visual Changes, No Eye Pain, No Ear Pain, No Dysphasia , No Sinus Congestion, No Post Nasal Drip, No Sore Throat Pulmonary: Dyspnea; No Cough, No Pleuritic Chest Pain Cardiovascular: Chest Pain; No: Palpitations, Orthopnea, Paroxysmal Noc. Dyspnea, Edema, Lt Headedness Gastrointestinal: No: Nausea, Vomiting, Abdominal Pain, Diarrhea, Constipation , Melena, Hematochezia Genitourinary: No Dysuria, No Frequency, No Incontinence, No Hematuria, No Retention Musculoskeletal: No: neck pain, shoulder pain, arm pain, back pain, hand pain, leg pain, foot pain Neurological: No: Weakness, Numbness, Incoordination, Change in speech, Confusion, Seizures Home Medications & Allergies Allergies: Coded Allergies: No Known Drug Allergies (Unverified , 11/10/09) Home Medication List Reviewed: Yes Exam-Cardiology Vital Signs Vital Signs Date Time Temp Pulse Resp B/P (MAP) Pulse Ox O2 Delivery O2 Flow Rate FiO2 02/09/18 05:15 62 19 105/61 (76) 96 Room Air 02/09/18 04:20 97.0 Exam General Appearance: Alert, Oriented X3, Cooperative, No Acute Distress HEENT: Atraumatic, PERRLA Respiratory: Clear to Auscultation, Normal Air Movement Cardiovascular: Regular Rate, Normal S1, Normal S2, No Murmurs Abdominal: Normal Bowel Sounds, Soft, No Tenderness, No Hepatosplenomegaly, No Masses Extremities: No Clubbing, No Cyanosis, No Edema, Normal Pulses, No Tenderness/ Swelling Skin: No Rashes, No Breakdown, No Significant Lesion Neuro: Normal Gait, Normal Speech, Strength at 5/5 X4 Ext, Normal Tone, Sensation Intact Psych/Mental Status: Mental Status NL, Mood NL Results Labs Labs Laboratory Tests 02/09/18 02:26: Glucometer 234H 02/09/18 02:30: White Blood Count 9.9, Red Blood Count 3.79L, Hemoglobin 10.9L, Hematocrit 32L, Mean Corpuscular Volume 86, Mean Corpuscular Hemoglobin 29, Mean Corpuscular Hemoglobin Concent 34, Red Cell Distribution Width 12.4, Platelet Count 211, Mean Platelet Volume 9.2, Neutrophils (%) (Auto) 68, Lymphocytes (%) (Auto) 25, Monocytes (%) (Auto) 6, Eosinophils (%) (Auto) 1, Basophils (%) (Auto) 0, Neutrophils # (Auto) 6.8, Lymphocytes # (Auto) 2.4, Monocytes # (Auto) 0.6, Eosinophils # (Auto) 0.1, Basophils # (Auto) 0.0, Prothrombin Time 13.6, INR Comment 1.0, Activated Partial Thromboplast Time 26, Sodium Level 134L, Potassium Level 3.9, Chloride Level 104, Carbon Dioxide Level 17L, Anion Gap 13 , Blood Urea Nitrogen 46H, Creatinine 1.99H, Estimat Glomerular Filtration Rate 40, BUN/Creatinine Ratio 23, Glucose Level 235H, Calcium Level 8.7, Corrected Calcium 9.2, Magnesium Level 2.1, Total Bilirubin 0.3, Aspartate Amino Transf ( AST/SGOT) 76H, Alanine Aminotransferase (ALT/SGPT) 60H, Alkaline Phosphatase 66 , Myoglobin 697.7H, Troponin I 5.55*H, Total Protein 6.1L, Albumin 3.4, Lipase 53 Microbiology 02/09/18 Influenza Types A,B Antigen (QUINTIN) - Final, Complete A/P-Cardiology Admission Diagnosis Non-ST elevation myocardial infarction Coronary artery disease Hypotension Hyperlipidemia Diabetes mellitus Admission Status: Inpatient Order (span 2 midnights) Reason for Inpatient Admission: Acute myocardial infarction Assessment/Plan Subacute myocardial infarction non-ST elevation KS. Patient had chest pain about 2 days ago, no further episodes of chest pain, has been having dizziness and lightheadedness, was noted to be hypotensive. Troponin is elevated. I will proceed with cardiac catheterization possible PTCA Coronary artery disease-Acute myocardial infarction, ST elevation in the inferior leads on September 04, 2015. Cardiac catheterization done September 04, 2015 revealed subtotal occlusion of the right coronary artery and total occlusion of the distal second obtuse marginal branch. Successful balloon angioplasty to the right coronary artery at multiple segments with good results. Small artery , not amenable to stent deployment. The circumflex artery had total occlusion at the second obtuse marginal branch at the distal portion. Successful balloon angioplasty and stenting using 2.2520 mm Promus Premier drug-eluting stent with excellent results. 40 percent ostial left main stenosis which will continue to monitor at this time. He is maintained on Brilinta and aspirin. Underwent repeat left heart catheterization on August 13, 2016 revealing total occlusion of the second obtuse marginal branch that is not receiving collateral at this point. 50 percent stenosis in the proximal and mid right coronary artery there is small nondominant artery. Mild disease in the distal left main and mid LAD. Second obtuse marginal branch was totally occluded initially 2015 and then underwent emergency angioplasty and stenting, is now restenosed. Has been on medical therapy Hypertension, currently hypotensive, has been symptomatic with dizziness and lightheadedness. Planning to proceed with cardiac catheterization Diabetes mellitus-managed by primary care physician Hyperlipidemia- Controlled. Maintained on statin, restart medication monitor Chronic renal insufficiency, elevated creatinine level. Continue on IV fluid and monitor Carotid artery stenosis, continue to monitor Clinical Quality Measures DVT/VTE Risk/Contraindication: Risk Factor Score Per Nursin RFS Level Per Nursing on Admit: 4+=Very High MICHAEL,BASHAR J MD Feb 09, 2018 05:40
--- NOTE | 2018-02-09 05:42 | Cardiac Procedure Note-CS/ASA ---
Pre-Procedure Note Pre-Op Procedure Note H&P Reviewed The H&P was reviewed, patient examined and no changes noted. Date H&P Reviewed: Feb 09, 2018 Time H&P Reviewed: 05:41 Conscious Sedation Pre-Proced Time 05:41 ASA Score 3 For ASA 3 and 4: Consider anesthesia and medical clearance. Also, for patients with a history of failed moderate sedation consider anesthesia. Airway Lungs Heart ASA score ASA 1: a normal healthy patient ASA 2: a patient with a mild systemic disease (mid diabetes, controlled hypertension, obesity x ASA 3: a patient with a severe systemic disease that limits activity (angina , COPD, prior Myocardial infarction) ASA 4: a patient with an incapacitating disease that is a constant threat to life (CHF, renal failure) ASA 5: a moribund patient not expected to survive 24 hrs. (ruptured aneurysm) ASA 6: a declared brain patient whose organs are being harvested. For emergent operations, add the letter E after the classification Mallampati Classification Grade 3 Sedation Plan Analgesia, Amnesia, Plan communicated to team members, Discussed options with patient/fam, Discussed risks with patient/fam The patient is an appropriate candidate to undergo the planned procedure, sedation, and anesthesia. The patient immediately re-assessed prior to indication. KELLY RODRIGUEZ MD Feb 09, 2018 05:41
[2018-02-09] MEDS ORDERED: inSUlin ASPART (NovoLOG) 1 UNIT/0.01 ML (CHARGE PER UNIT) SC ONE (06:00)
[2018-02-09] MEDS ORDERED: HEParin 1000 UNIT/ML (10ML VIAL) FOR BOLUS ONE (06:00)
[2018-02-09] MEDS ORDERED: LIDOCAINE 1% INJ 20 ML 20 ML VIAL ONE (06:00)
[2018-02-09] MEDS ORDERED: MIDAZOLAM 5 MG/5 ML (VERSED) VIAL ONE (06:00)
[2018-02-09] MEDS ORDERED: fentaNYL INJECTION 100 MCG/2 ML AMP ONE (06:00)
[2018-02-09] MEDS ORDERED: NS IV 1000 ML 1,000 ML ONE (06:01)
[2018-02-09] MEDS ORDERED: HEParin (CATH LAB) 2,000 ML IV ONE (06:01)
[2018-02-09] MEDS ORDERED: NITRO DRIP 25000 MCG/D5W 250 ML IV ONE (06:01)
--- NOTE | 2018-02-09 06:23 | Diagnostic Imaging Report ---
INDICATION: Weakness, nausea, and lethargy. Comparison is made with prior examination from 08/13/16. FINDINGS: The heart size, mediastinal configuration, and pulmonary vascularity are within normal limits. There is no pleural effusion, pneumothorax, or pneumonia. The osseous structures are unremarkable. IMPRESSION: No acute cardiopulmonary abnormality. Dictated by: Dictated on workstation # [id number]
[2018-02-09] MEDS ORDERED: DOPamine DRIP 250 ML IV ONE (06:50)
[2018-02-09] MEDS ORDERED: EPTIFIBATIDE BOLUS 20 ML IV ONE (06:54)
[2018-02-09] MEDS ORDERED: ATROPINE INJECTION 1 MG/10 ML SYR (ABBOTT) ONE (06:58)
[2018-02-09] MEDS ORDERED: FLU QUADRIvalent (5+ YOA) 2018-2019 (AFLURIA) 0.5 ML IM ONE (07:00)
[2018-02-09] MEDS ORDERED: ASPIRIN 325 MG (5 GR) TABLET ONE (07:09)
[2018-02-09] MEDS ORDERED: CLOPIDOGREL 300 MG (PLAVIX) TABLET PO ONE (07:09)
[2018-02-09] MEDS ORDERED: PATIENT MAY USE OWN MEDS, ALL PO SCH (07:15)
--- NOTE | 2018-02-09 07:21 | Cardiac Cath Report ---
Cardiac Cath Report Physician (s)/Batch Analyst (s) Physician KELLY RODRIGUEZ MD Pre-Procedure Diagnosis Pre-Procedure Diagnosis: Acute myocardial infarction Post-Procedure Note Procedure Start Date: Feb 09, 2018 Name of Procedure: Left heart catheterization Left ventriculogram Balloon angioplasty to the right coronary artery Findings/Procedure Note PROCEDURE NOTE: After explaining the procedure to the patient, all pros and cons were explained , all questions were answered. The patient signed the consent and then he was placed on the cardiac catheterization laboratory. Groin was prepped SL fashion local anesthesia was used. Sheath placed in the right femoral artery. Ailyn right and left catheter were used to access the coronary system. Pigtail was used to access the left ventricular cavity. Left ventriculogram was done Patient was given 5000 units of heparin, double bolus Integrilin, if our guide was used to access the right coronary artery that was totally occluded, BMW was advanced through the guide then I proceeded with balloon angioplasty multiple inflation using 2.015 mm balloon. Excellent results but the patient has some recoil in the artery is 1.5-1.75 mm in diameter at most. Unable to place a stent. Patient was noted to be hypotensive, dopamine drip was started At the end of the procedure the sheath was removed. Closure device was deployed FINDINGS: Hemodynamics LV 128/16, end-diastolic pressure of 16 Aorta 133/47 mean of 67 Initially blood pressure was 65/38 with mean of 47, started on dopamine drip ANATOMY: Left Main has 40-50 percent proximal stenosis nonobstructive disease Left Anterior Descending has mild disease nonobstructive disease Left Circumflex is dominant artery with mild disease, the second obtuse marginal branch has a posterior lateral branch that is known to be occluded Right Coronory Artery is very small artery that was totally occluded, successful balloon angioplasty using 2.015 mm balloon with multiple inflation, improvement of the occlusion, the artery is very small artery LV Gram was done with the limited amount of contrast. I was able to see good contractility. Did not repeat the left ventriculogram to avoid the use of excessive contrast CONCLUSION: 1. Subacute myocardial infarction with hypotensive shock, started on dopamine drip 2. Total occlusion of the right coronary artery successful balloon angioplasty using 2.015 mm balloon, the artery is very small artery, not amendable to stenting 3. Known occluded branch of the second obtuse marginal branch that is posterior lateral branch 4. 40-50 percent proximal left main coronary artery stenosis, mild LAD disease , did not change compared to the study from last year DISCUSSION AND RECOMMENDATION: Continue to maximize medical therapy Anesthesia Type: Conscious Sedation Estimated blood loss (mL): 20 ml Contrast Amount: 36 ml Total Radiation Dose: 1033 mGy Post-Procedure Diagnosis Post-operative diagnosis: Non-ST elevation myocardial infarction Hypotension Coronary artery disease Hyperlipidemia KELLY RODRIGUEZ MD Feb 09, 2018 07:21
[2018-02-09] MEDS ORDERED: ONDANSETRON 4 MG/2 ML (SDV) Z0FRAN ONE (07:23)
[2018-02-09] MEDS ORDERED: ASPIRIN E.C. 81 MG (ECOTRIN) TAB PO SCH (09:00)
[2018-02-09] MEDS ORDERED: PANTOPRAZOLE 20 MG TABLET (PROTONIX) PO ONE (09:00)
[2018-02-09] MEDS: OMEGA 3 (FISH OIL) 1000 MG CAP PO SCH (09:03)
[2018-02-09] MEDS: LINAGLIPTIN (TRADJENTA) 5 MG TABLET PO SCH (09:04)
[2018-02-09 09:05] LABS: CALCIUM 7.8 MG/DL (8.5-10.1); CREATININE SERUM 1.8 MG/DL (0.60-1.30)
[2018-02-09] MEDS: CLOPIDOGREL 75 MG (PLAVIX) TABLET PO SCH (09:07)
[2018-02-09] MEDS: ASPIRIN E.C. 81 MG (ECOTRIN) TAB PO SCH (09:07)
[2018-02-09] MEDS ORDERED: MONT10TA24 PO (09:27)
[2018-02-09] MEDS ORDERED: OMEP20CA12 PO (09:27)
[2018-02-09] MEDS ORDERED: LOSA25TA6 PO (09:27)
[2018-02-09] MEDS ORDERED: TAMS0.4C2 PO (09:27)
[2018-02-09] MEDS ORDERED: METF-397 PO (09:27)
--- NOTE | 2018-02-09 10:08 | Consultation-Hospitalist ---
HPI History of Present Illness: HPI/Chief Complaint Pt is a 72yoAAM with a PMH of CAD and [place], NIDDMII, and HTN who presented to the ER with CC of abdominal pain and dizziness. He states that he has not felt well for a few days and went out ot dinner last night and thought that gave him his stomach pain. He believes he woke up at 130AM due to the pain. He took an antacid and his normal BP medications but this did not help and he felt even more weak and dizzy. He believes his neighbor came by at that time to get a quiles and called 911 as he was very dizzy and diaphoretic. In the ER he was found to have an elevated troponin and was taken to the skill [facility] where balloon angiography was performed. He was also found to be very hypotensive and started on dopamine. I am consulted for medical management of DM. Source: patient Date Seen 02/09/18 Attending Physician Emmanuelle Dsouza MD PCP Janet Stokes MD Referring Physician Date of Admission Feb 09, 2018 at 03:34 Home Medications & Allergies Home Medications Reviewed patient Home Medication Reconciliation performed by pharmacy medication reconciliations central supply technician and/or nursing. Patients Allergies have been reviewed. Allergies Allergies Coded Allergies No Known Drug Allergies (Unverified11/10/09) Past Inhfwgl-Zrxyxq-Vdfotl Hx Past Med/Social Hx: Reviewed and Corrections made Patient Social History Marrital Status: Alcohol Use: Past History Recreational Drug Use: No Smoking Status: Former Smoker Former Smoker, Quit: Aug 13, 1993 Type Used: Cigarettes Physical Abuse Screen: No Sexual Abuse: No Recent Foreign Travel: No Contact w/other who traveled: No Recent Hopitalizations: No Recent Infectious Disease Expo: No Immunizations Up To Date Tetanus Booster (TDap): More than 5yrs Date of Pneumonia Vaccine: Mar 15, 2013 Seasonal Allergies Seasonal Allergies: No Past Medical History Surgeries: Appendectomy, Cardiac, Coronary Stent, Prostatectomy Cardiac: Coronary Artery Disease, Heart Attack, Hypertension Reproductive: No Gastrointestinal: Gastroesophageal Reflux Endocrine: Diabetes, Non-Insulin dep Cancer: Prostate Did You Recieve Any Treatments: Yes What Type of Treatment Did You: Radiation History of Blood Disorders: No Family History Reviewed and Corrections made Bone cancer G8 BROTHER Diabetes mellitus 19 MOTHER Heart Disease, Cancer, CAD Over 55 Years Old, Diabetes 57yo sister "in her sleep" Review of Systems Constitutional: No chills; diaphoresis, dizziness; No fever; weakness EENTM: No blurred vision, No double vision, No nose congestion, No throat pain Respiratory: No dyspnea on exertion, No orthopnea, No short of breath Cardiovascular: No chest pain, No edema; Hx of Intervention Gastrointestinal: abdominal pain; No constipation, No diarrhea, No nausea, No vomiting Genitourinary: No dysuria, No frequency Musculoskeletal: No joint pain, No muscle pain Skin: No lesions, No rash Psychiatric/Neurological: Denies Headache, Denies Numbness, Denies Tingling Physical Exam Physical Exam Vital Signs Vital Signs - First Documented 02/09/18 02:13 Temp 96.3 Pulse 59 Resp 12 B/P (MAP) 121/71 (88) Pulse Ox 94 O2 Delivery Room Air Capillary Refill : Less Than 3 Seconds Height, Weight, BMI Height: 5'10.00" Weight: 188lbs. 8.0oz. 85.299921pw; 27.1 BMI Method:Stated General Appearance: No Apparent Distress, WD/WN HEENT: PERRL/EOMI, Moist Mucous Membranes Neck: Non Tender, Supple Respiratory: Lungs Clear, No Respiratory Distress Cardiovascular: Regular Rate, Rhythm, No Murmur Gastrointestinal: Normal Bowel Sounds, Non Tender, Soft Extremity: Normal Capillary Refill, No Calf Tenderness Neurologic/Psychiatric: Alert, Oriented x3, Normal Mood/Affect Skin: Normal Color, Warm/Dry Results Results/Procedures Labs Laboratory Tests 02/09/18 02:30 02/09/18 08:30 Patient resulted labs reviewed. Imaging: Reviewed Imaging Report Assessment/Plan Assessment and Plan Assess & Plan/Chief Complaint NSTEMI Critical Care Critical Care: Critically Ill Patient Diagnosis/Problems Diagnosis/Problems (1) NSTEMI (non-ST elevated myocardial infarction) Status: Acute Assessment & Plan: Cath earlier today with balloon angiography Management per primary On ASA/Plavix (2) Acute on chronic renal failure Status: Acute Assessment & Plan: baseline appears to be around 1.5 Up today at 1.8 Continue IVF as received contrast Qualifiers: Acute renal failure type: unspecified Chronic kidney disease stage: unspecified stage Qualified Codes: N17.9 - Acute kidney failure, unspecified; N18.9 - Chronic kidney disease, unspecified (3) Coronary artery disease Status: Acute Assessment & Plan: Known CAD RCA not amenable to stenting Qualifiers: Coronary Disease-Associated Artery/Lesion type: [place] artery [place] vs. transplanted heart: [place] heart Associated angina: without angina Qualified Codes: I25.10 - Atherosclerotic heart disease of [place] coronary artery without angina pectoris (4) Non-insulin dependent type 2 diabetes mellitus Assessment & Plan: Start SSI On Tradjenta Hold home metformin (5) Hyponatremia Status: Acute Assessment & Plan: Appears at baseline Trend (6) Counseling regarding end of life decision making Assessment & Plan: Discussed with patient at length regarding end of life decision making States he would like his daughter to make all the decisions but has not talked about what his wishes would be with her States he is comfortable with her deciding whatever she wants in regards to his care Recommended filling out advanced directive or assigning a DPOA but he declined Clinical Quality Measures DVT/VTE Risk/Contraindication: Risk Factor Score Per Nursin RFS Level Per Nursing on Admit: 4+=Very High ALETHEA ALEGRE MD Feb 09, 2018 10:08
[2018-02-09] MEDS: NS IV 1000 ML 1,000 ML IV SCH ×2 (10:27→18:00)
[2018-02-09] MEDS: inSUlin ASPART (NovoLOG) 1 UNIT/0.01 ML (CHARGE PER UNIT) SC SCH ×3 (11:10→20:14)
[2018-02-09] MEDS ORDERED: ATORVASTATIN 80 MG (LIPITOR) TABLET PO SCH (21:00)
[2018-02-10] VITALS (11 sets, daily range): BP systolic 115–164; BP diastolic 61–89
[2018-02-10] MEDS: NS IV 1000 ML 1,000 ML IV SCH (02:47)
[2018-02-10 03:53] LABS: MEAN PLATELET VOLUME 9.7 FL (7.4-10.4); RED BLOOD COUNT 3.82 10^6/uL (4.35-5.85); RED CELL DISTRIBUTION WIDTH 12.8 % (10.0-14.5); WHITE BLOOD COUNT 7.8 10^3/uL (4.3-11.0)
[2018-02-10 04:11] LABS: CALCIUM 8.4 MG/DL (8.5-10.1); CREATININE SERUM 1.66 MG/DL (0.60-1.30); POTASSIUM 4.4 MMOL/L (3.6-5.0)
[2018-02-10] MEDS: inSUlin ASPART (NovoLOG) 1 UNIT/0.01 ML (CHARGE PER UNIT) SC SCH (05:37)
[2018-02-10] MEDS ORDERED: PANTOPRAZOLE 20 MG TABLET (PROTONIX) PO PRN (07:00)
[2018-02-10] MEDS ORDERED: NITROGLYCERIN 2% OINT 1 GM UNIT DOSE PACKET TOP PRN (07:30)
--- NOTE | 2018-02-10 07:33 | Progress Note-Hospitalist ---
Subjective HPI/CC On Admission Date Seen by Provider: Feb 10, 2018 Time Seen by Provider: 07:32 Pt is a 72yoAAM with a PMH of CAD and [place], NIDDMII, and HTN who presented to the ER with CC of abdominal pain and dizziness. He states that he has not felt well for a few days and went out ot dinner last night and thought that gave him his stomach pain. He believes he woke up at 130AM due to the pain. He took an antacid and his normal BP medications but this did not help and he felt even more weak and dizzy. He believes his neighbor came by at that time to get a quiles and called 911 as he was very dizzy and diaphoretic. In the ER he was found to have an elevated troponin and was taken to the [facility] where balloon angiography was performed. He was also found to be very hypotensive and started on dopamine. I am consulted for medical management of DM. Subjective/Events-last exam Pt reports feeling well. No complaints. Requesting DC. Objective Exam Vital Signs Vital Signs Date Time Temp Pulse Resp B/P (MAP) Pulse Ox O2 Delivery O2 Flow Rate FiO2 02/10/18 11:30 02/10/18 10:00 62 16 97 Room Air 02/10/18 08:00 98.3 Capillary Refill : Less Than 3 Seconds General Appearance: No Apparent Distress, WD/WN Respiratory: Lungs Clear, No Respiratory Distress Cardiovascular: Regular Rate, Rhythm, No Murmur Gastrointestinal: Normal Bowel Sounds, Non Tender, Soft Extremity: No Calf Tenderness, No Pedal Edema Neurologic/Psychiatric: Alert, Oriented x3 Results/Procedures Lab Patient resulted labs reviewed. Imaging: Reviewed Imaging Report Assessment/Plan Assessment and Plan Assess & Plan/Chief Complaint NSTEMI Critical Care Critical Care: Critically Ill Patient Diagnosis/Problems Diagnosis/Problems (1) NSTEMI (non-ST elevated myocardial infarction) Status: Acute Assessment & Plan: Cath 02/09 with balloon angiography Management per primary On ASA/Plavix (2) Acute on chronic renal failure Status: Acute Assessment & Plan: baseline appears to be around 1.5 1.66 today Qualifiers: Acute renal failure type: unspecified Chronic kidney disease stage: unspecified stage Qualified Codes: N17.9 - Acute kidney failure, unspecified; N18.9 - Chronic kidney disease, unspecified (3) Coronary artery disease Status: Acute Assessment & Plan: Known CAD RCA not amenable to stenting Qualifiers: Coronary Disease-Associated Artery/Lesion type: [place] artery [place] vs. transplanted heart: [place] heart Associated angina: without angina Qualified Codes: I25.10 - Atherosclerotic heart disease of [place] coronary artery without angina pectoris (4) Non-insulin dependent type 2 diabetes mellitus Assessment & Plan: SSI Resume Januvia at home and Metformin tomorrow (5) Hyponatremia Status: Acute Assessment & Plan: Appears at baseline Trend (6) Counseling regarding end of life decision making Assessment & Plan: Discussed with patient at length regarding end of life decision making States he would like his daughter to make all the decisions but has not talked about what his wishes would be with her States he is comfortable with her deciding whatever she wants in regards to his care Recommended filling out advanced directive or assigning a DPOA but he declined Clinical Quality Measures DVT/VTE Risk/Contraindication: Risk Factor Score Per Nursin RFS Level Per Nursing on Admit: 4+=Very High ALETHEA ALEGRE MD Feb 10, 2018 07:33
[2018-02-10] MEDS ORDERED: CLOP75TA28 PO (07:48)
--- NOTE | 2018-02-10 07:50 | Discharge Inst-Post CATH ---
Discharge Inst-CATH Post Cardiac Cath D/C Inst Follow Up/Plan HOLD METFORMIN FOR [address] Dsouza's office in 2 weeks CARDIAC CATH DISCHARGE INSTRUCTIONS *Hold Metformin for 48 hours post heart cath. ACTIVITY * Go Home directly and rest. * Limit activity of the leg (or wrist if it was used) for 7 days including aerobics, swimming, jogging, bicycling, etc. * Restrict stair-climbing for 7 days if possible, if not, climb up with your non -cath leg, then bring together on the same step. * Avoid lifting, pushing, pulling or excessive movement of the affected extremity for 7 days. * Customary sexual activity may be resumed after 2 days-use caution not to use a position that strains or causes pain to the affected extremity. * No driving for 24 hours. * NO SMOKING. * Avoid straining for bowel movements for 7 days. * Gentle walking on level ground is allowed. * Returning to work will depend on the type of procedure and the results. Your doctor will discuss this with you. CALL YOUR DOCTOR FOR ANY OF THE FOLLOWING: *If bleeding from the puncture site occurs- Apply gentle pressure to site with clean cloth and call your doctor or EMS. * If a knot or lump forms under the skin, increases in size, or causes pain. * If bruising appears to be worsening or moving further down your leg instead of disappearing. * Temperature above 101 F. CARE OF YOUR GROIN INCISION; * Bruising or purple discoloration of the skin near the puncture site is common. * You may shower only, no bathtub bathing for 5 days. Be careful to avoid slipping as your leg may feel stiff. * If a closure device was used on your femoral artery, please see the attached guide regarding care of the device and your leg. * Leave the dressing on, until removed by office staff. CARE OF YOUR WRIST INCISION; * Bruising or purple discoloration of the skin near the puncture site is common. * You may shower. * DO NOT submerge wrist. * Leave dressing on, until removed by office staff.. KELLY DSOUZA MD Feb 10, 2018 07:49
--- NOTE | 2018-02-10 07:55 | Cardiology Discharge Summary ---
Diagnosis/Chief Complaint Date of Admission Feb 09, 2018 at 03:34 Date of Discharge February 10, 2018 Admission Diagnosis Non-ST elevation myocardial infarction Coronary artery disease Hypotension Hyperlipidemia Diabetes mellitus Discharge Diagnosis Non-ST elevation myocardial infarction Coronary artery disease Hypertension Hyperlipidemia Diabetes mellitus Chief Complaint/HPI Chief Complaint/HPI 72 years old gentleman with known history of coronary artery disease, has been in his usual state of health until 2 days ago, he reported having some discomfort in his chest felt that it was indigestion about 2 days ago and felt extremely weak and diaphoretic. Since then he has been getting lightheaded and having no energy. Denied any chest pain. No palpitation, admit having dizziness and lightheadedness. No full syncope was reported. Has been compliant with his medication. Patient was admitted and underwent cardiac catheterization which showed total occlusion of the right coronary artery successful balloon angioplasty, the arteries to small for intervention Discharge Summary Hospital Course Hospital Course Subacute myocardial infarction non-ST elevation [place]. Cardiac catheterization was carried out 1. Subacute myocardial infarction with hypotensive shock, started on dopamine drip 2. Total occlusion of the right coronary artery successful balloon angioplasty using 2.015 mm balloon, the artery is very small artery, not amendable to stenting 3. Known occluded branch of the second obtuse marginal branch that is posterior lateral branch 4. 40-50 percent proximal left main coronary artery stenosis, mild LAD disease , did not change compared to the study from last year Coronary artery disease-Acute myocardial infarction, ST elevation in the inferior leads on September 04, 2015. Cardiac catheterization done September 04, 2015 revealed subtotal occlusion of the right coronary artery and total occlusion of the distal second obtuse marginal branch. Successful balloon angioplasty to the right coronary artery at multiple segments with good results. Small artery , not amenable to stent deployment. The circumflex artery had total occlusion at the second obtuse marginal branch at the distal portion. Successful balloon angioplasty and stenting using 2.2520 mm Promus Premier drug-eluting stent with excellent results. 40 percent ostial left main stenosis which will continue to monitor at this time. He is maintained on Brilinta and aspirin. Underwent repeat left heart catheterization on August 13, 2016 revealing total occlusion of the second obtuse marginal branch that is not receiving collateral at this point. 50 percent stenosis in the proximal and mid right coronary artery there is small nondominant artery. Mild disease in the distal left main and mid LAD, second obtuse marginal branch was occluded again. Cardiac catheterization was carried out on February 09, 2018, total growth the right coronary artery successful balloon angioplasty using 2015 mm balloon, otherwise mild progression of his coronary artery disease nonobstructive disease. Educated about compliance with medication Hypertension, hypotensive shock, started on dopamine drip, improved, currently off dopamine, restarted on losartan. Continue to monitor as an outpatient Diabetes mellitus-managed by primary care physician Hyperlipidemia- Controlled. Maintained on statin, restart medication monitor Chronic renal insufficiency, elevated creatinine level. Continue on IV fluid and monitor Carotid artery stenosis, continue to monitor Labs Laboratory Tests 02/09/18 02:26: Glucometer 234H 02/09/18 02:30: Red Blood Count 3.79L, Hemoglobin 10.9L, Hematocrit 32L, Sodium Level 134L, Carbon Dioxide Level 17L, Blood Urea Nitrogen 46H, Creatinine 1.99H, Glucose Level 235H, Aspartate Amino Transf (AST/SGOT) 76H, Alanine Aminotransferase (ALT /SGPT) 60H, Myoglobin 697.7H, Troponin I 5.55*H, Total Protein 6.1L 02/09/18 05:51: Glucometer 245H 02/09/18 08:30: Sodium Level 133L, Carbon Dioxide Level 16L, Blood Urea Nitrogen 48H, Creatinine 1.80H, Glucose Level 239H, Troponin I 9.22*H, Calcium Level 7.8L 02/09/18 11:00: Glucometer 219H 02/09/18 16:03: Glucometer 165H 02/09/18 20:12: Glucometer 171H 02/10/18 03:30: Red Blood Count 3.82L, Hemoglobin 11.0L, Hematocrit 32L, Sodium Level 132L, Carbon Dioxide Level 14L, Blood Urea Nitrogen 48H, Creatinine 1.66H, Glucose Level 175H, Calcium Level 8.4L, HDL Cholesterol 36L Procedures None. Discharge Physical Examination Allergies: Coded Allergies: No Known Drug Allergies (Unverified , 11/10/09) Vitals & I&Os Vital Signs Date Time Temp Pulse Resp B/P (MAP) Pulse Ox O2 Delivery O2 Flow Rate FiO2 02/10/18 06:00 64 20 115/62 (79) 93 Room Air 02/10/18 04:00 98.4 General Appearance: Alert, Oriented X3, Cooperative, No Acute Distress HEENT: Atraumatic, PERRLA Respiratory: Clear to Auscultation, Normal Air Movement Cardiovascular: Regular Rate, Normal S1, Normal S2, No Murmurs Abdominal: Normal Bowel Sounds, Soft, No Tenderness, No Hepatosplenomegaly, No Masses Extremities: No Clubbing, No Cyanosis, No Edema, Normal Pulses, No Tenderness/ Swelling Skin: No Rashes, No Breakdown, No Significant Lesion Neuro: Normal Gait, Normal Speech, Strength at 5/5 X4 Ext, Normal Tone, Sensation Intact, Cranial Nerves 3-12 NL, Reflexes 2+ Psych/Mental Status: Mental Status NL, Mood NL Discharge Home Medications Reviewed and agree with Discharge Medication list on patient's Discharge Instruction sheet Instructions to Patient/Family Please see electronic discharge instructions given to patient. Clinical Quality Measures Admission Status Admission Status: Inpatient Order (span 2 midnights) Reason for Inpatient Admission: Acute myocardial infarction DVT/VTE Risk/Contraindication: Risk Factor Score Per Nursin RFS Level Per Nursing on Admit: 4+=Very High KELLY RODRIGUEZ MD Feb 10, 2018 07:54
[2018-02-10] MEDS: ASPIRIN E.C. 81 MG (ECOTRIN) TAB PO SCH (08:32)
[2018-02-10] MEDS: LINAGLIPTIN (TRADJENTA) 5 MG TABLET PO SCH (08:32)
[2018-02-10] MEDS: OMEGA 3 (FISH OIL) 1000 MG CAP PO SCH (08:33)
[2018-02-10] MEDS: CLOPIDOGREL 75 MG (PLAVIX) TABLET PO SCH (08:33)
== END 2018-02-10 11:30 | disposition home or self-care (01) | DRG 250 ==
LOC: EDUNIT# 02:08 → ER 02:10 → ICU 03:34
PROVIDERS: ADMIT Internal Medicine Cardiovascular Disease; ATTEND Internal Medicine Cardiovascular Disease
PROC: 02703ZZ Dilation of Coronary Artery, One Artery, Percutaneous Approach (ICD-10-PCS; principal; 2018-02-09)
PROC: 4A023N7 Measurement of Cardiac Sampling and Pressure, Left Heart, Percutaneous Approach (ICD-10-PCS; 2018-02-09)
PROC: B2111ZZ Fluoroscopy of Multiple Coronary Arteries using Low Osmolar Contrast (ICD-10-PCS; 2018-02-09)
PROC: B2151ZZ Fluoroscopy of Left Heart using Low Osmolar Contrast (ICD-10-PCS; 2018-02-09)
DX: I21.4 Non-ST elevation (NSTEMI) myocardial infarction (principal); I25.10 Atherosclerotic heart disease of native coronary artery without angina pectoris; I95.9 Hypotension, unspecified; R57.8 Other shock; N17.9 Acute kidney failure, unspecified; E87.1 Hypo-osmolality and hyponatremia; E78.5 Hyperlipidemia, unspecified; E11.9 Type 2 diabetes mellitus without complications; I12.9 Hypertensive chronic kidney disease with stage 1 through stage 4 chronic kidney disease, or unspecified chronic kidney disease; N18.9 Chronic kidney disease, unspecified; I65.29 Occlusion and stenosis of unspecified carotid artery; K21.9 Gastro-esophageal reflux disease without esophagitis; E78.00 Pure hypercholesterolemia, unspecified; I34.0 Nonrheumatic mitral (valve) insufficiency; Z79.84 Long term (current) use of oral hypoglycemic drugs; Z87.891 Personal history of nicotine dependence; Z95.5 Presence of coronary angioplasty implant and graft; Z85.46 Personal history of malignant neoplasm of prostate; Z92.21 Personal history of antineoplastic chemotherapy
CPT/HCPCS: 36415; 71045; 80048; 80053; 80061; 82962; 83690; 83735; 83874; 84484; 85025; 85027; 85347; 85610; 85730; 87081; 87804; 93005; 93041; 93306; 93458; 96361; 96372; 96374

== ENCOUNTER 2018-06-06 17:01 | Emergency (ER) | payer MEDICARE, MEDICAID ==
[~2018-06-06] VITALS: Ht 177.8 cm; Wt 78.0 kg
--- OUTSIDE RECORDS SUMMARY | 2018-06-06 17:07 | XMS REPORT | Continuity of Care Document ---
Author Author [facility] Organization [facility] Address Unknown Phone Unavailable Allergies Active Description Code Type Severity Reaction Onset Reported/Identified Relationship to Patient Clinical Status Yes NO KNOWN DRUG ALLERGIES NO KNOWN DRUG ALLERG UNKNOWN Yes NO KNOWN DRUG ALLERGIES UNKNOWN NO KNOWN DRUG ALLERG Yes No Known Drug Allergies [id number] Drug Allergy Unknown N/A 11/10/2009 Medications There [...] MD Ot I25.10 ATHSCL HEART DISEASE OF [place] CORONARY 09/05/2015 KELLY RODRIGUEZ MD Ot I95.9 HYPOTENSION, UNSPECIFIED 09/05/2015 KELLY RODRIGUEZ MD Ot N18.9 CHRONIC KIDNEY DISEASE, UNSPECIFIED 09/05/2015 KELLY RODRIGUEZ MD Ot R57.8 OTHER SHOCK 09/07/2015 JAIME LAU APRN Ot I10 ESSENTIAL (PRIMARY) HYPERTENSION 09/07/2015 JAIME LAU APRN Ot R51 HEADACHE 09/11/2015 JAIME LAU APRN Ot I10 ESSENTIAL (PRIMARY) HYPERTENSION 09/11/2015 JAIME LAU APRN Ot R51 HEADACHE 09/11/2015 JAIME LAU TRACTOR TECHNICIAN Ot I10 ESSENTIAL (PRIMARY) HYPERTENSION 09/11/2015 JAIME LAU TRACTOR TECHNICIAN Ot R51 HEADACHE 09/26/2015 DIONNE VILLEGAS FAC, [...] CCDS Ot I25.10 ATHSCL HEART DISEASE OF [place] CORONARY 09/26/2015 DIONNE VILLEGAS FAC, ALI FACP [...] K Ot I25.10 ATHSCL HEART DISEASE OF [place] CORONARY 07/30/2016 SISSY GÓMEZ K Ot I25.10 ATHSCL HEART DISEASE OF [place] CORONARY 08/01/2016 DENNISE GÓMEZTH K Ot E78.2 MIXED HYPERLIPIDEMIA 08/01/2016 SISSY GÓMEZ K Ot I07.1 RHEUMATIC TRICUSPID INSUFFICIENCY 08/01/2016 SISSY GÓMEZ K Ot I10 ESSENTIAL (PRIMARY) HYPERTENSION 08/01/2016 SISSY GÓMEZ K Ot I25.10 ATHSCL HEART DISEASE OF [place] CORONARY 08/13/2016 SISSY GÓMEZ K Ot E78.2 MIXED HYPERLIPIDEMIA 08/13/2016 SISSY GÓMEZ K Ot I07.1 RHEUMATIC TRICUSPID INSUFFICIENCY 08/13/2016 DENNISE GÓMEZTH K Ot I10 ESSENTIAL (PRIMARY) HYPERTENSION 08/13/2016 DENNISE GÓMEZTH K Ot I25.10 ATHSCL HEART DISEASE OF [place] CORONARY 08/13/2016 MICHAEL VILLEGAS, KELLY Taylor Ot I25.2 OLD MYOCARDIAL INFARCTION 08/13/2016 KELLY RODRIGUEZ MD Ot Z09 ENCNTR FOR F/U EXAM AFT TRTMT FOR COND O 08/13/2016 SISSY GÓMEZ K Ot E78.2 MIXED HYPERLIPIDEMIA 08/13/2016 SISSY GÓMEZ K Ot I07.1 RHEUMATIC TRICUSPID INSUFFICIENCY 08/13/2016 SISSY GÓMEZ K Ot I10 ESSENTIAL (PRIMARY) HYPERTENSION 08/13/2016 SISSY GÓMEZ K Ot I25.10 ATHSCL HEART DISEASE OF [place] CORONARY 08/13/2016 KELLY RODRIGUEZ MD Ot I25.2 OLD MYOCARDIAL INFARCTION 08/13/2016 KELLY RODRIGUEZ MD Ot Z09 ENCNTR FOR F/U EXAM AFT TRTMT FOR COND O 08/13/2016 KELLY RODRIGUEZ MD Ot E11.22 TYPE 2 DIABETES MELLITUS W DIABETIC HOUSING GRANT ANALYST 08/13/2016 KELLY RODRIGUEZ MD Ot E78.5 HYPERLIPIDEMIA, UNSPECIFIED 08/13/2016 KELLY RODRIGUEZ MD Ot I12.9 HYPERTENSIVE CHRONIC KIDNEY DISEASE W ST 08/13/2016 KELLY RODRIGUEZ MD Ot I25.10 ATHSCL HEART DISEASE OF [place] CORONARY 08/13/2016 KELLY RODRIGUEZ MD Ot I25.2 OLD MYOCARDIAL INFARCTION 08/13/2016 KELLY RODRIGUEZ MD Ot I25.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 [place] 08/13/2016 KELLY RODRIGUEZ MD Ot N18.9 CHRONIC KIDNEY DISEASE, UNSPECIFIED 08/13/2016 KELLY RODRIGUEZ MD Ot R94.39 ABNORMAL RESULT OF OTHER CARDIOVASCULAR 08/13/2016 KELLY RODRIGUEZ MD Ot 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 08/13/2016 KELLY RODRIGUEZ MD Ot Z79.899 OTHER VENDING MACHINE ATTENDANT (CURRENT) DRUG THERAPY 08/13/2016 KELLY RODRIGUEZ MD Ot Z87.891 PERSONAL HISTORY OF NICOTINE DEPENDENCE 08/13/2016 KELLY RODRIGUEZ MD Ot Z95.5 PRESENCE OF CORONARY ANGIOPLASTY IMPLANT 08/19/2016 KELLY RODRIGUEZ MD Ot E11.22 TYPE 2 DIABETES MELLITUS W DIABETIC HOUSING GRANT ANALYST 08/19/2016 KELLY RODRIGUEZ MD Ot E78.5 HYPERLIPIDEMIA, UNSPECIFIED 08/19/2016 KELLY RODRIGUEZ MD Ot I12.9 HYPERTENSIVE CHRONIC KIDNEY DISEASE W ST 08/19/2016 KELLY RODRIGUEZ MD Ot I25.10 ATHSCL HEART DISEASE OF [place] CORONARY 08/19/2016 KELLY RODRIGUEZ MD Ot I25.2 OLD MYOCARDIAL INFARCTION 08/19/2016 KELLY RODRIGUEZ MD Ot I25.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 [place] 08/19/2016 KELLY RODRIGUEZ MD Ot N18.9 CHRONIC KIDNEY DISEASE, UNSPECIFIED 08/19/2016 KELLY RODRIGUEZ MD Ot R94.39 ABNORMAL RESULT OF OTHER CARDIOVASCULAR 08/19/2016 KELLY RODRIGUEZ MD Ot 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 08/19/2016 KELLY RODRIGUEZ MD, Ot Z79.899 OTHER VENDING MACHINE ATTENDANT (CURRENT) DRUG THERAPY 08/19/2016 KELLY RODRIGUEZ MD, Ot Z87.891 PERSONAL HISTORY OF NICOTINE DEPENDENCE 08/19/2016 KELLY RODRIGUEZ MD Ot Z95.5 PRESENCE OF CORONARY ANGIOPLASTY IMPLANT 08/19/2016 SISSY GÓMEZ Ot E78.2 MIXED HYPERLIPIDEMIA 08/19/2016 SISSY GÓMEZ Ot I07.1 RHEUMATIC TRICUSPID INSUFFICIENCY 08/19/2016 SISSY GÓMEZ Ot I10 ESSENTIAL (PRIMARY) HYPERTENSION 08/19/2016 SISSY GÓMEZ Ot I25.10 ATHSCL HEART DISEASE OF [place] CORONARY 09/01/2016 SISSY GÓMEZ Ot E78.2 MIXED HYPERLIPIDEMIA 09/01/2016 SISSY GÓMEZ Ot I07.1 RHEUMATIC TRICUSPID INSUFFICIENCY 09/01/2016 SISSY GÓMEZ Ot I10 ESSENTIAL (PRIMARY) HYPERTENSION 09/01/2016 SISSY GÓMEZ Ot I25.10 ATHSCL HEART DISEASE OF [place] CORONARY 05/31/2017 SISSY GÓMEZ Ot E78.2 MIXED HYPERLIPIDEMIA 05/31/2017 SISSY GÓMEZ Ot I07.1 RHEUMATIC TRICUSPID INSUFFICIENCY 05/31/2017 SISSY GÓMEZ Ot I10 ESSENTIAL (PRIMARY) HYPERTENSION 05/31/2017 SISSY GÓMEZ Ot I25.10 ATHSCL HEART DISEASE OF [place] CORONARY 05/31/2017 KELLY RODRIGUEZ MD Ot I25.2 OLD MYOCARDIAL INFARCTION 05/31/2017 KELLY RODRIGUEZ MD, Ot Z09 ENCNTR FOR F/U EXAM AFT TRTMT FOR COND O 05/31/2017 JAIME LAU APRN Ot E11.22 TYPE 2 DIABETES MELLITUS W DIABETIC HOUSING GRANT ANALYST 05/31/2017 JAIME LAU APRN Ot I12.9 HYPERTENSIVE CHRONIC KIDNEY DISEASE W ST 05/31/2017 JAIME LAU APRN Ot I25.10 ATHSCL HEART DISEASE OF [place] CORONARY 05/31/2017 LAU, PETER J TRACTOR TECHNICIAN Ot I25.2 OLD MYOCARDIAL INFARCTION 05/31/2017 JAIME LAU APRN Ot K21.9 GASTRO-ESOPHAGEAL REFLUX DISEASE WITHOUT 05/31/2017 JAIME LAU APRN Ot N18.9 CHRONIC KIDNEY DISEASE, UNSPECIFIED 05/31/2017 JAIME LAU APRN Ot Z79.82 FDC (CURRENT) USE OF ASPIRIN 05/31/2017 JAIME LAU APRN Ot Z87.891 PERSONAL HISTORY OF NICOTINE DEPENDENCE 05/31/2017 JAIME LAU APRN Ot Z90.49 ACQUIRED ABSENCE OF OTHER SPECIFIED PART 05/31/2017 JAIME LAU APRN Ot Z90.79 ACQUIRED ABSENCE OF OTHER GENITAL ORGAN( 05/31/2017 JAIME LAU APRN Ot Z95.5 PRESENCE OF CORONARY ANGIOPLASTY IMPLANT 06/02/2017 JAIME LAU APRN Ot E11.22 TYPE 2 DIABETES MELLITUS W DIABETIC HOUSING GRANT ANALYST 06/02/2017 JAIME LAU APRN Ot I12.9 HYPERTENSIVE CHRONIC KIDNEY DISEASE W ST 06/02/2017 JAIME LAU APRN Ot I25.10 ATHSCL HEART DISEASE OF [place] CORONARY 06/02/2017 JAIME LAU APRN Ot I25.2 OLD MYOCARDIAL INFARCTION 06/02/2017 JAIME LAU APRN Ot K21.9 GASTRO-ESOPHAGEAL REFLUX DISEASE WITHOUT 06/02/2017 JAIME LAU APRN Ot N18.9 CHRONIC KIDNEY DISEASE, UNSPECIFIED 06/02/2017 JAIME LAU APRN Ot Z79.82 FDC (CURRENT) USE OF ASPIRIN 06/02/2017 JAIME LAU APRN Ot Z87.891 PERSONAL HISTORY OF NICOTINE DEPENDENCE 06/02/2017 JAIME LAU APRN Ot Z90.49 ACQUIRED ABSENCE OF OTHER SPECIFIED PART 06/02/2017 JAIME ALU APRN Ot Z90.79 ACQUIRED ABSENCE OF OTHER [...] GÓMEZ Ot I25.10 ATHSCL HEART DISEASE OF [place] CORONARY 07/30/2017 KELLY RODRIGUEZ MD Ot I25.2 OLD MYOCARDIAL INFARCTION 07/30/2017 MICHAEL VILLEGAS, KELLY Taylor Ot Z09 ENCNTR FOR F/U EXAM AFT TRTMT FOR COND O 09/10/2017 SISSY GÓMEZ Ot E78.5 HYPERLIPIDEMIA, UNSPECIFIED 09/10/2017 SISSY GÓMEZ Ot 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 09/10/2017 SISSY GÓMEZ Ot I10 ESSENTIAL (PRIMARY) HYPERTENSION 09/10/2017 SISSY GÓMEZ Ot I25.10 ATHSCL HEART DISEASE OF [place] CORONARY 09/10/2017 SISSY GÓMEZ Ot R07.89 OTHER CHEST PAIN 09/30/2017 SISSY GÓMEZ Ot E78.5 HYPERLIPIDEMIA, UNSPECIFIED 09/30/2017 SISSY GÓMEZ Ot 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 09/30/2017 SISSY GÓMEZ Ot I10 ESSENTIAL (PRIMARY) HYPERTENSION 09/30/2017 SISSY GÓMEZ Ot I25.10 ATHSCL HEART DISEASE OF [place] CORONARY 09/30/2017 SISSY GÓMEZ K Ot R07.89 OTHER CHEST PAIN 10/07/2017 SISSY GÓMEZ Ot E78.5 HYPERLIPIDEMIA, UNSPECIFIED 10/07/2017 SISSY GÓMEZ Ot 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 10/07/2017 ISIDRO CURRY SISSY Ackerman Ot I10 ESSENTIAL (PRIMARY) HYPERTENSION 10/07/2017 ISIDRO CURRY SISSY Ackerman Ot I25.10 ATHSCL HEART DISEASE OF [place] CORONARY 10/07/2017 DWYER-ZEE CURRY SISSY Ackerman Ot R07.89 OTHER CHEST PAIN 11/24/2017 Ot R03.1 NONSPECIFIC LOW BLOOD-PRESSURE READING 01/02/2018 Ot R03.1 NONSPECIFIC LOW BLOOD-PRESSURE READING 02/10/2018 ISIDRO CURRY SISSY Ackerman Ot E78.2 MIXED HYPERLIPIDEMIA 02/10/2018 ISIDRO CURRY SISSY Ackerman Ot I07.1 RHEUMATIC TRICUSPID INSUFFICIENCY 02/10/2018 ISIDRO CURRY SISSY Ackerman Ot I10 ESSENTIAL (PRIMARY) HYPERTENSION 02/10/2018 ISIDRO CURRY SISSY Ackerman Ot I25.10 ATHSCL HEART DISEASE OF [place] CORONARY 02/10/2018 KELLY RODRIGUEZ MD Ot I25.2 OLD MYOCARDIAL INFARCTION 02/10/2018 KELLY RODRIGUEZ MD Ot Z09 ENCNTR FOR F/U EXAM AFT TRTMT FOR COND O 02/10/2018 ISIDRO CURRY SISSY Ackerman Ot E78.5 HYPERLIPIDEMIA, UNSPECIFIED 02/10/2018 ISIDRO CURRY SISSY Ackerman Ot 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 02/10/2018 ISIDRO CURRY SISSY Ackerman Ot I10 ESSENTIAL (PRIMARY) HYPERTENSION 02/10/2018 ISIDRO CURRY SISSY Meka Ot I25.10 ATHSCL HEART DISEASE OF [place] CORONARY 02/10/2018 ISIDRO CURRY SISSY Ackerman Ot R07.89 OTHER CHEST PAIN 02/10/2018 KELLY RODRIGUEZ MD Ot E11.9 TYPE 2 DIABETES MELLITUS WITHOUT COMPLIC 02/10/2018 KELLY RODRIGUEZ MD Ot E78.00 PURE HYPERCHOLESTEROLEMIA, UNSPECIFIED 02/10/2018 KELLY RODRIGUEZ MD Ot E78.5 HYPERLIPIDEMIA, UNSPECIFIED 02/10/2018 KELLY RODRIGUEZ MD Ot E87.1 HYPO-OSMOLALITY AND HYPONATREMIA 02/10/2018 KELLY RODRIGUEZ MD Ot I12.9 HYPERTENSIVE CHRONIC KIDNEY DISEASE W ST 02/10/2018 KELLY RODRIGUEZ MD, Ot I21.4 NON-ST ELEVATION (NSTEMI) MYOCARDIAL INF 02/10/2018 KELLY RODRIGUEZ MD, Ot I25.10 ATHSCL HEART DISEASE OF [place] CORONARY 02/10/2018 KELLY RODRIGUEZ MD, Ot I34.0 NONRHEUMATIC MITRAL (VALVE) INSUFFICIENC 02/10/2018 KELLY RODRIGUEZ MD, Ot I65.29 OCCLUSION AND STENOSIS OF UNSPECIFIED CA 02/10/2018 KELLY RODRIGUEZ MD Ot I95.9 HYPOTENSION, UNSPECIFIED 02/10/2018 KELLY RODRIGUEZ MD, Ot K21.9 GASTRO-ESOPHAGEAL REFLUX DISEASE WITHOUT 02/10/2018 KELLY RODRIGUEZ MD, Ot N17.9 ACUTE KIDNEY FAILURE, UNSPECIFIED 02/10/2018 KELLY RODRIGUEZ MD, Ot N18.9 CHRONIC KIDNEY DISEASE, UNSPECIFIED 02/10/2018 KELLY RODRIGUEZ MD, Ot R57.8 OTHER SHOCK 02/10/2018 KELLY RODRIGUEZ MD, Ot Z79.84 FDC (CURRENT) USE OF ORAL HYPOGLYC 02/10/2018 KELLY RODRIGUEZ MD, Ot Z85.46 PERSONAL HISTORY OF MALIGNANT NEOPLASM O 02/10/2018 KELLY RODRIGUEZ MD, Ot Z87.891 PERSONAL HISTORY OF NICOTINE DEPENDENCE 02/10/2018 KELLY RODRIGUEZ MD, Ot Z92.21 PERSONAL HISTORY OF ANTINEOPLASTIC CHEMO 02/10/2018 KELLY RODRIGUEZ MD, Ot Z95.5 PRESENCE OF CORONARY ANGIOPLASTY IMPLANT Procedures Code Description Performed By Performed On [id number] DILATION OF 1 COR ART WITH DRUG-ELUT INT 09/04/2015 [id number] DILATION OF CORONARY ARTERY, TWO SITES, 09/04/2015 [id number] MEASURE OF CARDIAC SAMPL PRESSURE, L H 09/04/2015 [id number] FLUOROSCOPY OF MULT COR ART USING L OSM 09/04/2015 [id number] FLUOROSCOPY OF LEFT HEART USING LOW OSMO 09/04/2015 [id number] DILATION OF CORONARY ARTERY, ONE ARTERY, 02/09/2018 [id number] MEASURE OF CARDIAC SAMPL PRESSURE, L H 02/09/2018 [id number] FLUOROSCOPY OF MULT COR ART USING L OSM 02/09/2018 [id number] FLUOROSCOPY OF LEFT HEART USING LOW OSMO 02/09/2018 Results Test Result Range Microalb/Creat - 05/07/16 [...] resistant Staphylococcus aureus (MRSA) screening culture NEG NR Complete blood count (CBC) with automated white [...] INFLUENZA A AND B ANTIGENS BY [facility] Methicillin resistant Staphylococcus aureus (MRSA) screening culture - 04:25 Methicillin resistant Staphylococcus aureus (MRSA) screening culture NEG NR Capillary blood glucose measurement by glucometer (mass/volume) - 02/09/18 05: 51 Capillary blood glucose measurement by glucometer (mass/volume) 245 mg/dL 70-110 Whole blood basic metabolic panel - 02/09/18 08:30 Serum or plasma sodium measurement (moles/volume) 133 mmol/L 135-145 Serum or plasma potassium measurement (moles/volume) 5.0 mmol/L 3.6-5.0 Serum or plasma chloride measurement (moles/volume) 107 mmol/L 98-107 Carbon dioxide 16 mmol/L 21-32 Serum or plasma anion gap determination (moles/volume) 10 mmol/L 5-14 Serum or plasma urea nitrogen measurement (mass/volume) 48 mg/dL 7-18 Serum or plasma creatinine measurement (mass/volume) 1.80 mg/dL 0.60-1.30 Serum or plasma urea nitrogen/creatinine mass ratio 27 NRG Serum or plasma creatinine measurement with calculation of estimated glomerular filtration rate 45 NRG Serum or plasma glucose measurement (mass/volume) 239 mg/dL 70-105 Serum or plasma calcium measurement (mass/volume) 7.8 mg/dL 8.5-10.1 Serum or plasma troponin i.cardiac measurement (mass/volume) - 02/09/18 08:30 Serum or plasma troponin i.cardiac measurement (mass/volume) 9.22 ng /mL <0.30 Lipid 1996 panel - 02/09/18 08:30 Serum or plasma triglyceride measurement (mass/volume) 57 mg/dL <150 Serum or plasma cholesterol measurement (mass/volume) 149 mg/dL < 200 Serum or plasma cholesterol in HDL measurement (mass/volume) 40 mg/ dL 40-60 Cholesterol in LDL [mass/volume] in serum or plasma by direct assay 98 mg/dL 1-129 Serum or plasma cholesterol in VLDL measurement (mass/volume) 11 mg/ dL 5-40 Capillary blood glucose measurement by glucometer (mass/volume) - 02/09/18 11: 00 Capillary blood glucose measurement by glucometer (mass/volume) 219 mg/dL 70-110 Capillary blood glucose measurement by glucometer (mass/volume) - 02/09/18 16: 03 Capillary blood glucose measurement by glucometer (mass/volume) 165 mg/dL 70-110 Capillary blood glucose measurement by glucometer (mass/volume) - 02/09/18 20: 12 Capillary blood glucose measurement by glucometer (mass/volume) 171 mg/dL 70-110 Automated blood complete blood count (hemogram) panel - 02/10/18 03:30 Blood leukocytes automated count (number/volume) 7.8 10*3/uL 4.3-11.0 Blood erythrocytes automated count (number/volume) 3.82 10*6/uL 4.35-5.85 Venous blood hemoglobin measurement (mass/volume) 11.0 g/dL 13.3-17.7 Blood hematocrit (volume fraction) 32 % 40-54 Automated erythrocyte mean corpuscular volume 85 [foz_us] 80-99 Automated erythrocyte mean corpuscular hemoglobin (mass per erythrocyte) 29 pg 25-34 Automated erythrocyte mean corpuscular hemoglobin concentration measurement ( mass/volume) 34 g/dL 32-36 Automated erythrocyte distribution width ratio 12.8 % 10.0-14.5 Automated blood platelet count (count/volume) 194 10*3/uL 130-400 Automated blood platelet mean volume measurement 9.7 [foz_us] 7.4-10.4 Whole blood basic metabolic panel - 02/10/18 03:30 Serum or plasma sodium measurement (moles/volume) 132 mmol/L 135-145 Serum or plasma potassium measurement (moles/volume) 4.4 mmol/L 3.6-5.0 Serum or plasma chloride measurement (moles/volume) 106 mmol/L 98-107 Carbon dioxide 14 mmol/L 21-32 Serum or plasma anion gap determination (moles/volume) 12 mmol/L 5-14 Serum or plasma urea nitrogen measurement (mass/volume) 48 mg/dL 7-18 Serum or plasma creatinine measurement (mass/volume) 1.66 mg/dL 0.60-1.30 Serum or plasma urea nitrogen/creatinine mass ratio 29 NRG Serum or plasma creatinine measurement with calculation of estimated glomerular filtration rate 50 NRG Serum or plasma glucose measurement (mass/volume) 175 mg/dL 70-105 Serum or plasma calcium measurement (mass/volume) 8.4 mg/dL 8.5-10.1 Lipid 1996 panel - 02/10/18 03:30 Serum or plasma triglyceride measurement (mass/volume) 130 mg/dL <150 Serum or plasma cholesterol measurement (mass/volume) 147 mg/dL < 200 Serum or plasma cholesterol in HDL measurement (mass/volume) 36 mg/ dL 40-60 Cholesterol in LDL [mass/volume] in serum or plasma by direct assay 91 mg/dL 1-129 Serum or plasma cholesterol in VLDL measurement (mass/volume) 26 mg/ dL 5-40 Encounters ACCT No. Visit Date/Time Discharge Status Pt. Type Provider Facility Loc./Unit Complaint [id number] 02/09/2018 03:34:00 02/10/2018 11:30:00 DIS Inpatient KELLY RODRIGUEZ MD [facility] ICU NSTEMI [id number] 09/09/2017 09:19:00 09/09/2017 23:59:59 CLS Outpatient SISSY GÓMEZ [facility] CARD I25.10 CAD [id number] 05/31/2017 16:48:00 05/31/2017 19:10:00 DIS Emergency JAIME LAU TRACTOR TECHNICIAN [facility] ER HIGH BP [id number] 08/13/2016 07:37:00 08/13/2016 15:40:00 DIS Outpatient KELLY RODRIGUEZ MD [facility] CATH ABN STRESS TEST [id number] 07/30/2016 11:51:00 07/30/2016 23:59:59 CLS Outpatient SISSY GÓMEZ [facility] CARD CAD,HTN,TR [id number] 01/25/2016 09:00:00 01/25/2016 23:59:59 CLS Preadmit KELLY RODRIGUEZ MD [facility] CR STEMI [id number] 01/21/2016 09:33:00 01/24/2016 00:01:00 DIS Outpatient KELLY RODRIGUEZ MD [facility] CR STEMI [id number] 09/26/2015 01:23:00 09/26/2015 10:35:00 DIS Inpatient DIONNE VILLEGAS FACC, MALI FACMarkell CCDS [facility] CSD CHEST PAIN,CAD [id number] 09/07/2015 15:24:00 09/07/2015 17:33:00 DIS Emergency JAIME LAU TRACTOR TECHNICIAN [facility] ER HEADACHE,WEAKNESS [id number] 03/20/2013 17:12:00 03/20/2013 20:23:00 DIS Emergency BLAKE AGUILAR DO [facility] ER WEAKNESS [id number] 11/24/2017 21:47:00 Document Registration [id number] 09/04/2015 01:32:00 ACT Inpatient KELLY RODRIGUEZ MD [facility] ICU POST CATH, ST ELEVATION [id number] 07/14/2017 11:22:00 07/14/2017 23:59:00 DIS Outpatient KELLY RODRIGUEZ [id number] 05/07/2016 09:47:00 05/07/2016 23:59:00 DIS Outpatient Janet Stokes [id number] 05/06/2016 15:41:51 Document Registration
[2018-06-06 18:07] LABS: BASOPHILS % (AUTO) 0 % (0-10); EOSINOPHILS # (AUTO) 0.1 10^3/uL (0.0-0.3); EOSINOPHILS % (AUTO) 2 % (0-10); HEMATOCRIT 35 % (40-54); HEMOGLOBIN 11.7 G/DL (13.3-17.7); LYMPHOCYTES # (AUTO) 1.6 X 10^3 (1.0-4.0); LYMPHOCYTES % (AUTO) 24 % (12-44); MEAN CORPUSCULAR HEMOGLOBIN 29 PG (25-34); MEAN CORPUSCULAR HGB CONC 33 G/DL (32-36); MEAN CORPUSCULAR VOLUME 85 FL (80-99); MEAN PLATELET VOLUME 8.8 FL (7.4-10.4); MONOCYTES # (AUTO) 0.6 X 10^3 (0.0-1.0); MONOCYTES % (AUTO) 8 % (0-12); NEUTROPHILS # (AUTO) 4.4 X 10^3 (1.8-7.8); NEUTROPHILS % (AUTO) 66 % (42-75); PLATELET COUNT 226 10^3/uL (130-400); RED CELL DISTRIBUTION WIDTH 12.4 % (10.0-14.5); WHITE BLOOD COUNT 6.7 10^3/uL (4.3-11.0)
--- NOTE | 2018-06-06 18:10 | ED Cardiac General ---
History of Present Illness General Chief Complaint: Cardiac/General Problems Stated Complaint: BLOOD PRESSURE ELEVATED Nursing Triage Note: HYPERTENSION SINCE THURSDAY DESPITE TAKING BP MEDS. DENIES CP OR SOA. Source: patient History of Present Illness Date Seen by Provider: Jun 06, 2018 Time Seen by Provider: 17:50 Initial Comments PT ARRIVES VIA POV FROM HOME C/O ELEVATED BLOOD PRESSURE STATES BP IS NORMAL WHEN HE WAKES UP IN THE MORNING,BUT AFTER HE STARTS MOVING AROUND, HIS BLOOD PRESSURE GOES UP STATES THIS HAS BEEN GOING ON SINCE THURSDAY STATES HIS BP WAS 122 SYSTOLIC ON THURSDAY MORNING HAD ROUTINE APPOINTMENT WITH DR. 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 HAS HAD A STENT X 1 AND IT OCCLUDED, AND HAD ANGIOPLASTY. HAS TAKEN HIS PLAVIX THIS AM NO MISSED DOSES OF MEDICATIONS PCP: DR. BENJAMIN MAC OPERATOR: DR. RODRIGUEZ Allergies and Home Medications Allergies Coded Allergies: No Known Drug Allergies (Unverified , 11/10/09) Home Medications Aspirin 81 Mg Tab.chew, 81 MG PO DAILY, (Reported) Atorvastatin Calcium 80 Mg Tablet, 80 MG PO HS, (Reported) LAST FILLED #90 09-13-17 Biotin 2,500 Mcg Capsule, 5,000 MCG PO DAILY, (Reported) TAKES 2 (2,500 MCG) CAPSULES Clopidogrel Bisulfate 75 Mg Tablet, 75 MG PO DAILY Prescribed by: KELLY RODRIGUEZ on 02/10/18 0748 Losartan Potassium 25 Mg Tablet, 25 MG PO DAILY, (Reported) LAST FILLED #30 09-15-17 Metformin HCl 500 Mg Tablet, 500 MG PO BID, (Reported) LAST FILLED #180 07-14-17 Montelukast Sodium 10 Mg Tablet, 10 MG PO DAILY, (Reported) LAST FILLED #30 09-15-17 Multivitamin 1 Each Tablet, 1 TAB PO DAILY, (Reported) [place]-3/Dha/Epa/Fish Oil 1 Each Capsule, 1,000 MG PO DAILY, (Reported) Omeprazole 20 Mg Capsule.dr, 20 MG PO DAILY PRN for HEARTBURN, (Reported) LAST FILLED #90 07-17-17 Sitagliptin Phosphate 50 Mg Tablet, 50 MG PO DAILY, (Reported) Tamsulosin HCl 0.4 Mg Cap.er.24h, 0.4 MG PO DAILY, (Reported) LAST FILLED #90 07-22-17 Patient Home Medication List Home Medication List Reviewed: Yes Review of Systems Review of Systems Constitutional: no symptoms reported; No dizziness EENTM: No Symptoms Reported Respiratory: No Symptoms Reported Cardiovascular: See HPI; Denies Chest Pain, Denies Edema, Denies Irregular Heart Rate, Denies Lightheadedness, Denies Palpitations, Denies Syncope Gastrointestinal: No Symptoms Reported Genitourinary: No Symptoms Reported Musculoskeletal: no symptoms reported Skin: no symptoms reported Psychiatric/Neurological: See HPI, Pre-Existing Deficit Endocrine: No Symptoms Reported Hematologic/Lymphatic: No Symptoms Reported Past Eberfyd-Rxvfwu-Rnhwdr Hx Patient Social History Alcohol Use: Past History (HX OF ETOH ABUSE, QUIT AGE 42) Recreational Drug Use: No Smoking Status: Former Smoker (2 PPD, QUIT 1994) Type Used: Cigarettes Former Smoker, Quit: Aug 13, 1993 Recent Foreign Travel: No Contact w/Someone Who Travel: No Recent Infectious Disease Expo: No Recent Hopitalizations: No Immunizations Up To Date Tetanus Booster (TDap): More than 5yrs Date of Pneumonia Vaccine: Mar 15, 2013 Seasonal Allergies Seasonal Allergies: No Past Medical History Surgeries: Yes (CARDIAC CATHS WITH ANGIOPLASTY AND STENT X 1 IN 2015 AND ANGIOPLASTY 01/2018; HEMORRHOIDECTOMY) Appendectomy, Cardiac, Coronary Stent, Prostatectomy, Rectal Respiratory: No Cardiac: Yes (STEMI 2015 WITH ANGIOPLASTY + STENT X 1; NSTEMI 01/2018 WITH ANGIOPLASTY; HIGH TRIGLYCERIDES) Coronary Artery Disease, Heart Attack, Hypertension Neurological: Yes (PERIPHERAL NEUROPATHY IN FEET) Neuropathy Reproductive Disorders: No Genitourinary: Yes (CHRONIC RENAL INSUFFICIENCY) Gastrointestinal: Yes Gastroesophageal Reflux, Pancreatitis Musculoskeletal: No Endocrine: Yes Diabetes, Non-Insulin dep HEENT: No Cancer: Yes (DX AGE 57) Prostate Did You Recieve Any Treatments: Yes (S/P RADIATION THERAPY AND "HORMONE SHOTS: Q 4 MONTHS) What Type of Treatment Did You: Radiation Psychosocial: No Integumentary: No Blood Disorders: No Family Medical History Bone cancer G8 BROTHER Diabetes mellitus 19 MOTHER Heart Disease, Cancer, CAD Over 55 Years Old, Diabetes 57yo sister "in her sleep" Physical Exam Vital Signs Vital Signs - First Documented 06/06/18 17:12 Temp 97.7 Pulse 70 Resp 16 B/P (MAP) 193/94 (127) Pulse Ox 99 Capillary Refill : Less Than 3 Seconds Height, Weight, BMI Height: 5'10.00" Weight: 172lbs. 5.0oz. 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 Norm as Tested; No Motor Weakness; Sensory Deficit (DECREASED SENSATION TO FEEL) Skin: Normal Color (PT IS BLACK), Warm/Dry Progress/Results/Core Measures Results/Orders Lab Results Laboratory Tests Test 06/06/18 18:00 Range/Units White Blood Count 6.7 4.3-11.0 10^3/uL Red Blood Count 4.11 L 4.35-5.85 10^6/uL Hemoglobin 11.7 L 13.3-17.7 G/DL Hematocrit 35 L 40-54 % Mean Corpuscular Volume 85 80-99 FL Mean Corpuscular Hemoglobin 29 25-34 PG Mean Corpuscular Hemoglobin Concent 33 32-36 G/DL Red Cell Distribution Width 12.4 10.0-14.5 % Platelet Count 226 130-400 10^3/uL Mean Platelet Volume 8.8 7.4-10.4 FL Neutrophils (%) (Auto) 66 42-75 % Lymphocytes (%) (Auto) 24 12-44 % Monocytes (%) (Auto) 8 0-12 % Eosinophils (%) (Auto) 2 0-10 % Basophils (%) (Auto) 0 0-10 % Neutrophils # (Auto) 4.4 1.8-7.8 X 10^3 Lymphocytes # (Auto) 1.6 1.0-4.0 X 10^3 Monocytes # (Auto) 0.6 0.0-1.0 X 10^3 Eosinophils # (Auto) 0.1 0.0-0.3 10^3/uL Basophils # (Auto) 0.0 0.0-0.1 10^3/uL Prothrombin Time 13.4 12.2-14.7 SEC INR Comment 1.0 0.8-1.4 Activated Partial Thromboplast Time 29 24-35 SEC Sodium Level 132 L 135-145 MMOL/L Potassium Level 4.1 3.6-5.0 MMOL/L Chloride Level 99 98-107 MMOL/L Carbon Dioxide Level 22 21-32 MMOL/L Anion Gap 11 5-14 MMOL/L Blood Urea Nitrogen 26 H 7-18 MG/DL Creatinine 1.19 0.60-1.30 MG/DL Estimat Glomerular Filtration Rate > 60 BUN/Creatinine Ratio 22 Glucose Level 143 H 70-105 MG/DL Calcium Level 9.1 8.5-10.1 MG/DL Corrected Calcium 9.2 8.5-10.1 MG/DL Magnesium Level 2.3 1.8-2.4 MG/DL Total Bilirubin 0.5 0.1-1.0 MG/DL Aspartate Amino Transf (AST/SGOT) 33 5-34 U/L Alanine Aminotransferase (ALT/SGPT) 33 0-55 U/L Alkaline Phosphatase 84 40-136 U/L Total Protein 6.6 6.4-8.2 GM/DL Albumin 3.9 3.2-4.5 GM/DL TSH [place] Testing 1.04 0.35-4.94 UIU/ML My Orders Orders - BLAKE AGUILAR DO Saline Lock/Iv-Start (06/06/18 17:52) Ekg Tracing (06/06/18:52) Monitor-Rhythm Ecg Trace Only (06/06/18:52) Cbc With Automated Diff (06/06/18 17:) Comprehensive Metabolic Panel (06/06/18 17:52) Magnesium (06/06/18 17:52) Protime With Inr (06/06/18:52) Partial Thromboplastin Time (06/06/18 17:52) Thyroid Analyzer (06/06/18 17:52) Chest 1 View, Ap/Pa Only (06/06/18 17:52) Hydralazine Injection (Apresoline Inject (06/06/18 18:15) Hydralazine Injection (Apresoline Inject (06/06/18 19:15) Medications Given in ED Current Medications Medications Dose Ordered Sig/Padma Route Start Time Stop Time Status Last Admin Dose Admin Hydralazine HCl 10 mg ONCE ONCE IV 06/06/18 18:15 06/06/18 18:16 DC 06/06/18 18:15 10 MG Vital Signs/I&O 06/06/18 17:12 Temp 97.7 Pulse 70 Resp 16 B/P (MAP) 193/94 (127) Pulse Ox 99 Blood Pressure Mean: 127 Initial ECG Impression Date: Jun 06, 2018 Initial ECG Impression Time: 17:52 Initial ECG Rate: 66 Initial ECG Rhythm: Normal Sinus Initial ECG Impression: Normal Diagnostic Imaging Comments CXR--NO ACUTE PROCESS, PER RADIOLOGIST REPORT @ 1859 Departure Impression Primary Impression: Labile hypertension Disposition: 01 HOME, SELF-CARE Condition: Improved Departure-Patient Inst. Referrals: KELLY RODRIGUEZ MD, WEN-CHOU MD (PCP/Family) Primary Care Physician Patient Instructions: Controlling Your Blood Pressure Through Lifestyle, DASH Diet, High Blood Pressure (DC) Add. Discharge Instructions: CONTINUE YOUR REGULAR MEDICATIONS PRESCRIBED FOLLOW UP WITH DR. RODRIGUEZ THIS WEEK FOR FURTHER CARE All discharge instructions reviewed with patient and/or family. Voiced understanding. Scripts Hydralazine HCl (Hydralazine HCl) 10 Mg Tablet 10 MG PO TID, #15 TAB Prov: BLAKE AGUILAR DO 06/06/18 BLAKE AGUILAR DO Jun 06, 2018 18:10
[2018-06-06] MEDS ORDERED: hydrALAZINE (APESOLINE) 20 MG/ML VIAL IV ONE ×2 (18:15→19:15)
[2018-06-06 18:32] LABS: PROTHROMBIN TIME PATIENT 13.4 SEC (12.2-14.7)
[2018-06-06 18:37] LABS: ALANINE AMINOTRANSFERASE 33 U/L (0-55); ALBUMIN 3.9 GM/DL (3.2-4.5); ALKALINE PHOSPHATASE 84 U/L (40-136); BILIRUBIN,TOTAL 0.5 MG/DL (0.1-1.0); BUN/CREATININE RATIO 22; CALCIUM 9.1 MG/DL (8.5-10.1); CARBON DIOXIDE 22 MMOL/L (21-32); CHLORIDE 99 MMOL/L (98-107); CREATININE SERUM 1.19 MG/DL (0.60-1.30); GFR ESTIMATED > 60; GLUCOSE 143 MG/DL (70-105); MAGNESIUM 2.3 MG/DL (1.8-2.4); POTASSIUM 4.1 MMOL/L (3.6-5.0); SODIUM 132 MMOL/L (135-145); TOTAL PROTEIN 6.6 GM/DL (6.4-8.2)
--- NOTE | 2018-06-06 18:38 | Diagnostic Imaging Report ---
CHEST 1 VIEW, AP/PA ONLY Indication: Hypertension. Comparison: 02/09/2018 Findings: No focal airspace disease in the visualized lungs. Please note that the posterior lower lobes are poorly evaluated by portable radiography. No pleural effusion or pneumothorax. Normal cardiomediastinal silhouette. Impression: No acute cardiopulmonary process by portable radiography. Dictated by: Dictated on workstation # [id number]
[2018-06-06 18:57] LABS: TSH (THYROID ANALYZER) 1.04 UIU/ML (0.35-4.94)
[2018-06-06 20:17] VITALS: BP 129/62
== END 2018-06-06 20:22 | disposition home or self-care (01) ==
LOC: EDUNIT# 17:01 → ER 17:03
DX: E11.22 Type 2 diabetes mellitus with diabetic chronic kidney disease (principal); I12.9 Hypertensive chronic kidney disease with stage 1 through stage 4 chronic kidney disease, or unspecified chronic kidney disease; N18.9 Chronic kidney disease, unspecified; I25.2 Old myocardial infarction; I25.10 Atherosclerotic heart disease of native coronary artery without angina pectoris; E11.40 Type 2 diabetes mellitus with diabetic neuropathy, unspecified; K21.9 Gastro-esophageal reflux disease without esophagitis; Z87.19 Personal history of other diseases of the digestive system; Z95.5 Presence of coronary angioplasty implant and graft; Z79.02 Long term (current) use of antithrombotics/antiplatelets; Z85.46 Personal history of malignant neoplasm of prostate; Z92.21 Personal history of antineoplastic chemotherapy; Z80.8 Family history of malignant neoplasm of other organs or systems; Z79.82 Long term (current) use of aspirin; Z79.84 Long term (current) use of oral hypoglycemic drugs; Z87.891 Personal history of nicotine dependence; Z90.49 Acquired absence of other specified parts of digestive tract; Z90.79 Acquired absence of other genital organ(s)
CPT/HCPCS: 36415; 71045; 80053; 83735; 84443; 85025; 85610; 85730; 93005; 93041

== ENCOUNTER 2020-03-06 13:29 | Outpatient (RCR) | payer MEDICARE, MEDICAID ==
[2020-01-17 13:49] LABS: BASOPHILS % (AUTO) 1 % (0-10); EOSINOPHILS # (AUTO) 0.1 10^3/uL (0.0-0.3); EOSINOPHILS % (AUTO) 2 % (0-10); HEMATOCRIT 26 % (40-54); HEMOGLOBIN 8.6 g/dL (13.3-17.7); LYMPHOCYTES # (AUTO) 1.2 10^3/uL (1.0-4.0); LYMPHOCYTES % (AUTO) 24 % (12-44); MEAN CORPUSCULAR HEMOGLOBIN 30 pg (25-34); MEAN CORPUSCULAR HGB CONC 33 g/dL (32-36); MEAN CORPUSCULAR VOLUME 90 fL (80-99); MEAN PLATELET VOLUME 9.1 fL (9.0-12.2); MONOCYTES # (AUTO) 0.5 10^3/uL (0.0-1.0); MONOCYTES % (AUTO) 9 % (0-12); NEUTROPHILS # (AUTO) 3.3 10^3/uL (1.8-7.8); NEUTROPHILS % (AUTO) 64 % (42-75); PLATELET COUNT 245 10^3/uL (130-400); WHITE BLOOD COUNT 5.1 10^3/uL (4.3-11.0)
[2020-01-17 14:12] LABS: ALBUMIN 3.7 GM/DL (3.2-4.5); BILIRUBIN,TOTAL 0.4 MG/DL (0.1-1.0); CALCIUM 8.3 MG/DL (8.5-10.1); CREATININE SERUM 3.45 MG/DL (0.60-1.30); POTASSIUM 4.1 MMOL/L (3.6-5.0); TOTAL PROTEIN 6.7 GM/DL (6.4-8.2)
[~2020-03-06 13:29] MED LIST changes: +ASPI-1238 PO; -ASPI-983 PO; +CLOP75TA28 PO; +HYDR-3922 PO; +LOSA25TA41 PO; +MONT10TA97 PO; +MULT-567 PO; -MULT1TAB69 PO; +OMEP20CA18 PO; +SIMV20TA26 PO; -SIMV20TA3 PO; +TAMS0.4C2 PO
[2020-03-06 14:26] LABS: BASOPHILS % (AUTO) 0 % (0-10); EOSINOPHILS # (AUTO) 0.1 10^3/uL (0.0-0.3); EOSINOPHILS % (AUTO) 2 % (0-10); HEMATOCRIT 24 % (40-54); HEMOGLOBIN 7.9 g/dL (13.3-17.7); LYMPHOCYTES # (AUTO) 1.1 10^3/uL (1.0-4.0); LYMPHOCYTES % (AUTO) 20 % (12-44); MEAN CORPUSCULAR HEMOGLOBIN 29 pg (25-34); MEAN CORPUSCULAR HGB CONC 34 g/dL (32-36); MEAN CORPUSCULAR VOLUME 87 fL (80-99); MEAN PLATELET VOLUME 9.1 fL (9.0-12.2); MONOCYTES # (AUTO) 0.4 10^3/uL (0.0-1.0); MONOCYTES % (AUTO) 8 % (0-12); NEUTROPHILS # (AUTO) 3.8 10^3/uL (1.8-7.8); NEUTROPHILS % (AUTO) 70 % (42-75); PLATELET COUNT 205 10^3/uL (130-400); WHITE BLOOD COUNT 5.4 10^3/uL (4.3-11.0)
[2020-03-06 14:51] LABS: ALBUMIN 3.6 GM/DL (3.2-4.5); BILIRUBIN,TOTAL 0.4 MG/DL (0.1-1.0); CALCIUM 8.3 MG/DL (8.5-10.1); CREATININE SERUM 4.65 MG/DL (0.60-1.30); POTASSIUM 4.1 MMOL/L (3.6-5.0); TOTAL PROTEIN 6.2 GM/DL (6.4-8.2)
== END 2020-04-16 | disposition home or self-care (01) ==
LOC: ONC 13:29
PROVIDERS: ATTEND Internal Medicine Hematology & Oncology
DX: C61 Malignant neoplasm of prostate (principal); E11.22 Type 2 diabetes mellitus with diabetic chronic kidney disease; I13.10 Hypertensive heart and chronic kidney disease without heart failure, with stage 1 through stage 4 chronic kidney disease, or unspecified chronic kidney disease; D63.1 Anemia in chronic kidney disease; N18.9 Chronic kidney disease, unspecified; K21.9 Gastro-esophageal reflux disease without esophagitis; E03.9 Hypothyroidism, unspecified; I25.10 Atherosclerotic heart disease of native coronary artery without angina pectoris; I08.1 Rheumatic disorders of both mitral and tricuspid valves; E78.5 Hyperlipidemia, unspecified; Z79.899 Other long term (current) drug therapy; Z90.49 Acquired absence of other specified parts of digestive tract; Z98.890 Other specified postprocedural states; Z72.0 Tobacco use
CPT/HCPCS: 80053; 82728; 83540; 85025; 99213; 99214

== ENCOUNTER → 2020-04-26 | Outpatient (CLI) | payer MEDICARE, MEDICAID ==
--- NOTE | 2020-04-26 14:24 | Diagnostic Imaging Report ---
PROCEDURE: US Renal Bilateral. INDICATION: Chronic renal disease. TECHNIQUE: Multiple real-time grayscale sonographic images were obtained of the kidneys. CORRELATION: None. FINDINGS: RIGHT KIDNEY: 10.9 x 5.6 x 6.1 cm. There is some increased echogenicity along with thinning of the renal parenchyma. There is presence of dilatation of the renal pelvis up to 2.2 cm. LEFT KIDNEY: 11.2 x 4.8 x 5.7 cm. Increased echogenicity along with thinning of the renal parenchyma present. No hydronephrosis. URINARY BLADDER: Unremarkable appearance. The left ureteral jet is visualized with nonvisualization of the right ureteral jet. IMPRESSION: 1. There is increased echogenicity along with some thinning of the renal parenchyma, suggestive of chronic medical renal disease. 2. There is noted slight prominent appearance about the right renal pelvis. Overt hydronephrosis is not demonstrated. However, there is also absence of visualized right ureteral jet. Therefore, the possibility of some degree of obstruction would be difficult to exclude. Dictated by: Dictated on workstation # [id number]
== END ==
LOC: RAD 10:44
PROVIDERS: ATTEND Internal Medicine Nephrology
DX: N18.30 Chronic kidney disease, stage 3 unspecified (principal); N28.81 Hypertrophy of kidney
CPT/HCPCS: 76770

== ENCOUNTER → 2020-05-09 | Outpatient (CLI) | payer MEDICARE, MEDICAID ==
[2020-05-09 14:20] LABS: BASOPHILS % (AUTO) 0 % (0-10); EOSINOPHILS # (AUTO) 0.1 10^3/uL (0.0-0.3); EOSINOPHILS % (AUTO) 2 % (0-10); HEMATOCRIT 27 % (40-54); HEMOGLOBIN 8.6 g/dL (13.3-17.7); LYMPHOCYTES # (AUTO) 1.5 10^3/uL (1.0-4.0); LYMPHOCYTES % (AUTO) 24 % (12-44); MEAN CORPUSCULAR HEMOGLOBIN 30 pg (25-34); MEAN CORPUSCULAR HGB CONC 32 g/dL (32-36); MEAN CORPUSCULAR VOLUME 94 fL (80-99); MEAN PLATELET VOLUME 9.5 fL (9.0-12.2); MONOCYTES # (AUTO) 0.5 10^3/uL (0.0-1.0); MONOCYTES % (AUTO) 9 % (0-12); NEUTROPHILS % (AUTO) 65 % (42-75); PLATELET COUNT 206 10^3/uL (130-400); WHITE BLOOD COUNT 6.2 10^3/uL (4.3-11.0)
[2020-05-09 14:39] LABS: ALBUMIN 3.8 GM/DL (3.2-4.5); CALCIUM 8.4 MG/DL (8.5-10.1); CREATININE SERUM 4.99 MG/DL (0.60-1.30); PHOSPHORUS 5.5 MG/DL (2.3-4.7); POTASSIUM 4.5 MMOL/L (3.6-5.0)
== END ==
LOC: LAB 13:48
PROVIDERS: ATTEND Internal Medicine Nephrology
DX: I12.9 Hypertensive chronic kidney disease with stage 1 through stage 4 chronic kidney disease, or unspecified chronic kidney disease (principal); N18.4 Chronic kidney disease, stage 4 (severe); N25.89 Other disorders resulting from impaired renal tubular function; D64.9 Anemia, unspecified
CPT/HCPCS: 36415; 80069; 82306; 82570; 83970; 84156; 84550; 85025

== ENCOUNTER 2020-05-13 18:01 | Emergency (ER) | payer MEDICARE, MEDICAID ==
[~2020-05-13] VITALS: Ht 178 cm; Wt 75.0 kg
[2020-05-13 18:38] LABS: BASOPHILS % (AUTO) 0 % (0-10); EOSINOPHILS # (AUTO) 0.1 10^3/uL (0.0-0.3); EOSINOPHILS % (AUTO) 2 % (0-10); HEMATOCRIT 26 % (40-54); HEMOGLOBIN 8.7 g/dL (13.3-17.7); LYMPHOCYTES # (AUTO) 1.3 10^3/uL (1.0-4.0); LYMPHOCYTES % (AUTO) 22 % (12-44); MEAN CORPUSCULAR HEMOGLOBIN 30 pg (25-34); MEAN CORPUSCULAR HGB CONC 33 g/dL (32-36); MEAN CORPUSCULAR VOLUME 91 fL (80-99); MEAN PLATELET VOLUME 10.2 fL (9.0-12.2); MONOCYTES # (AUTO) 0.6 10^3/uL (0.0-1.0); MONOCYTES % (AUTO) 10 % (0-12); NEUTROPHILS # (AUTO) 3.9 10^3/uL (1.8-7.8); NEUTROPHILS % (AUTO) 65 % (42-75); PLATELET COUNT 192 10^3/uL (130-400)
[2020-05-13 18:49] LABS: ALBUMIN 3.8 GM/DL (3.2-4.5); POTASSIUM 4.8 MMOL/L (3.6-5.0)
[2020-05-13 18:50] LABS: CALCIUM 8.5 MG/DL (8.5-10.1)
[2020-05-13 18:53] LABS: BILIRUBIN,TOTAL 0.3 MG/DL (0.1-1.0)
[2020-05-13 18:55] LABS: CREATININE SERUM 5.14 MG/DL (0.60-1.30)
[2020-05-13 18:58] LABS: MAGNESIUM 2.2 MG/DL (1.6-2.4)
[2020-05-13 19:45] LABS: BILIRUBIN,URINE NEGATIVE (NEGATIVE); CLARITY,URINE CLEAR; COLOR,URINE YELLOW; GLUCOSE, URINE (UA) NEGATIVE (NEGATIVE); KETONES,URINE NEGATIVE (NEGATIVE); LEUKOCYTE ESTERASE ,URINE NEGATIVE (NEGATIVE); NITRITE,URINE NEGATIVE (NEGATIVE); PROTEIN,URINE TRACE (NEGATIVE)
[2020-05-13 19:59] LABS: BACTERIA,URINE TRACE /HPF
--- NOTE | 2020-05-13 20:28 | ED General ---
General Chief Complaint: General Problems/Pain Stated Complaint: BLAKE,TIRED Nursing Triage Note: PT AMB TO ROOM 9. STATES THAT HE ISN'T FEELING WELL WITH BLAKE AND FEELING TIRED. STATES THAT HE WAS TOLD TO COME TO THE HOSPITAL FOR ABNORMAL LABS. Nursing Sepsis Screen: No Definite Risk Source of Information: Patient Exam Limitations: No Limitations History of Present Illness Date Seen by Provider: May 13, 2020 Time Seen by Provider: 18:10 Initial Comments This is 75-year-old gentleman with chronic kidney disease related to diabetes presents to the emergency room at the direction of his soa engineer office (Dr. Venegas). He has significant chronic kidney disease and labs drawn on May 09 showed an increase of creatinine from 4.65 in February to 4.99. He denies any chest pain, shortness of breath, swelling, or vomiting. He has had a little bit of headache and fatigue. He was admitted at [facility] in February for renal fa ilure. He states Dr. Venegas's office instructed him to present to a hospital over the weekend to reassess labs. He reports consuming plenty of water and still urinating normally. Patient also reports he was told he is anemic and may require transfusion soon. Allergies and Home Medications Allergies Coded Allergies: No Known Drug Allergies (Unverified , 11/10/09) Home Medications Aspirin 81 Mg Tab.chew, 81 MG PO DAILY, (Reported) Atorvastatin Calcium 80 Mg Tablet, 80 MG PO HS, (Reported) LAST FILLED #90 09-13-17 Biotin 2,500 Mcg Capsule, 5,000 MCG PO DAILY, (Reported) TAKES 2 (2,500 MCG) CAPSULES Carvedilol 6.25 Mg Tablet, 6.25 MG PO BID Prescribed by: LUCY MARRERO on 05/13/202037 Clopidogrel Bisulfate 75 Mg Tablet, 75 MG PO DAILY Prescribed by: KELLY RODRIGUEZ on 02/10/18 0748 Hydralazine HCl 10 Mg Tablet, 10 MG PO TID Prescribed by: BLAKE AGUILAR on 06/06/181914 Losartan Potassium 25 Mg Tablet, 25 MG PO DAILY, (Reported) LAST FILLED #30 09-15-17 Metformin HCl 500 Mg Tablet, 500 MG PO BID, (Reported) LAST FILLED #180 07-14-17 Montelukast Sodium 10 Mg Tablet, 10 MG PO DAILY, (Reported) LAST FILLED #30 09-15-17 Multivitamin 1 Each Tablet, 1 TAB PO DAILY, (Reported) [place]-3/Dha/Epa/Fish Oil 1 Each Capsule, 1,000 MG PO DAILY, (Reported) Omeprazole 20 Mg Capsule.dr, 20 MG PO DAILY PRN for HEARTBURN, (Reported) LAST FILLED #90 07-17-17 Sitagliptin Phosphate 50 Mg Tablet, 50 MG PO DAILY, (Reported) Tamsulosin HCl 0.4 Mg Cap.er.24h, 0.4 MG PO DAILY, (Reported) LAST FILLED #90 07-22-17 Patient Home Medication List Home Medication List Reviewed: Yes Review of Systems Review of Systems Constitutional: see HPI EENTM: no symptoms reported Respiratory: no symptoms reported Cardiovascular: no symptoms reported Gastrointestinal: no symptoms reported Genitourinary: see HPI Musculoskeletal: no symptoms reported Skin: no symptoms reported Psychiatric/Neurological: See HPI Hematologic/Lymphatic: No Symptoms Reported Immunological/Allergic: no symptoms reported Past Pqafpup-Wfonoc-Kjdgya Hx Past Med/Social Hx: Reviewed Nursing Past Med/Soc Hx Patient Social History Alcohol Use: Denies Use Smoking Status: Former Smoker Type Used: Cigarettes Former Smoker, Quit: Aug 13, 1993 Recent Infectious Disease Expo: No Recent Hopitalizations: Yes ([facility] RENAL FAILURE) Immunizations Up To Date Tetanus Booster (TDap): More than 5yrs Date of Pneumonia Vaccine: Mar 15, 2013 Seasonal Allergies Seasonal Allergies: No Past Medical History Surgeries: Yes Appendectomy, Cardiac, Coronary Stent, Prostatectomy, Rectal Respiratory: No Cardiac: Yes Coronary Artery Disease, Heart Attack, Hypertension Neurological: Yes (PERIPHERAL NEUROPATHY IN FEET) Neuropathy Reproductive Disorders: No Genitourinary: Yes (CHRONIC RENAL INSUFFICIENCY) Renal Failure Gastrointestinal: Yes Gastroesophageal Reflux, Pancreatitis Musculoskeletal: No Endocrine: Yes Diabetes, Non-Insulin dep HEENT: No Cancer: Yes (DX AGE 57) Prostate Did You Recieve Any Treatments: Yes What Type of Treatment Did You: Radiation Psychosocial: No Integumentary: No Blood Disorders: No Family Medical History Bone cancer G8 BROTHER Diabetes mellitus 19 MOTHER Heart Disease, Cancer, CAD Over 55 Years Old, Diabetes 57yo sister "in her sleep" Physical Exam Vital Signs Vital Signs - First Documented 05/13/20 18:12 Temp 37.1 Pulse 64 Resp 20 B/P (MAP) 175/86 (115) Pulse Ox 100 O2 Delivery Room Air Capillary Refill : Less Than 3 Seconds Height, Weight, BMI Height: 5'10.00" Weight: 172lbs. 5.0oz. 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 Norm as Tested Skin: Normal Color, Warm/Dry Progress/Results/Core Measures Suspected Sepsis Recent Fever Within 48 Hours: No Infection Criteria Present: None New/Unexplained Altered Menta: No Sepsis Screen: No Definite Risk SIRS Temperature: Pulse: 64 Respiratory Rate: 20 Laboratory Tests 05/13/20 18:23: White Blood Count 6.0 Blood Pressure 175 /86 Mean: 115 Laboratory Tests 05/13/20 18:23: Creatinine 5.14H, Platelet Count 192, Total Bilirubin 0.3 Results/Orders Lab Results Laboratory Tests Test 05/13/20 18:23 05/13/20 19:34 Range/Units White Blood Count 6.0 4.3-11.0 10^3/uL Red Blood Count 2.88 L 4.30-5.52 10^6/uL Hemoglobin 8.7 L 13.3-17.7 g/dL Hematocrit 26 L 40-54 % Mean Corpuscular Volume 91 80-99 fL Mean Corpuscular Hemoglobin 30 25-34 pg Mean Corpuscular Hemoglobin Concent 33 32-36 g/dL Red Cell Distribution Width 12.3 10.0-14.5 % Platelet Count 192 130-400 10^3/uL Mean Platelet Volume 10.2 9.0-12.2 fL Immature Granulocyte % (Auto) 0 % Neutrophils (%) (Auto) 65 42-75 % Lymphocytes (%) (Auto) 22 12-44 % Monocytes (%) (Auto) 10 0-12 % Eosinophils (%) (Auto) 2 0-10 % Basophils (%) (Auto) 0 0-10 % Neutrophils # (Auto) 3.9 1.8-7.8 10^3/uL Lymphocytes # (Auto) 1.3 1.0-4.0 10^3/uL Monocytes # (Auto) 0.6 0.0-1.0 10^3/uL Eosinophils # (Auto) 0.1 0.0-0.3 10^3/uL Basophils # (Auto) 0.0 0.0-0.1 10^3/uL Immature Granulocyte # (Auto) 0.0 0.0-0.1 10^3/uL Sodium Level 132 L 135-145 MMOL/L Potassium Level 4.8 3.6-5.0 MMOL/L Chloride Level 100 98-107 MMOL/L Carbon Dioxide Level 20 L 21-32 MMOL/L Anion Gap 12 5-14 MMOL/L Blood Urea Nitrogen 47 H 7-18 MG/DL Creatinine 5.14 H 0.60-1.30 MG/DL Estimat Glomerular Filtration Rate 13 BUN/Creatinine Ratio 9 Glucose Level 108 H 70-105 MG/DL Calcium Level 8.5 8.5-10.1 MG/DL Corrected Calcium 8.7 8.5-10.1 MG/DL Magnesium Level 2.2 1.6-2.4 MG/DL Total Bilirubin 0.3 0.1-1.0 MG/DL Aspartate Amino Transf (AST/SGOT) 22 5-34 U/L Alanine Aminotransferase (ALT/SGPT) 16 0-55 U/L Alkaline Phosphatase 47 40-136 U/L Total Protein 7.0 6.4-8.2 GM/DL Albumin 3.8 3.2-4.5 GM/DL Coronavirus 2019 ([facility]ILIANE) Negative Negative Urine Color YELLOW Urine Clarity CLEAR Urine pH 7.0 5-9 Urine Specific [place] <=1.005 1.016-1.022 Urine Protein TRACE H NEGATIVE Urine Glucose (UA) NEGATIVE NEGATIVE Urine Ketones NEGATIVE NEGATIVE Urine Nitrite NEGATIVE NEGATIVE Urine Bilirubin NEGATIVE NEGATIVE Urine Urobilinogen 0.2 < = 1.0 MG/DL Urine Leukocyte Esterase NEGATIVE NEGATIVE Urine RBC (Auto) TRACE-L NEGATIVE Urine RBC NONE /HPF Urine WBC NONE /HPF Urine Crystals NONE /LPF Urine Bacteria TRACE /HPF Urine Casts NONE /LPF Urine Mucus NEGATIVE /LPF Urine Culture Indicated NO My Orders Orders - LUCY CLARKE MD Cbc With Automated Diff (05/13/20 18:10) Comprehensive Metabolic Panel (05/13/20 18:10) Magnesium (05/13/20 18:10) Ua Culture If Indicated (05/13/20 18:10) Ed Iv/Invasive Line Start (05/13/20 18:10) Covid 19 Inhouse Test (05/13/20 18:28) Carvedilol Tablet (Coreg Tablet) (05/13/20 20:45) Medications Given in ED Current Medications Medications Dose Ordered Sig/Padma Route Start Time Stop Time Status Last Admin Dose Admin Carvedilol 6.25 mg ONCE ONCE PO 05/13/20 20:45 05/13/20 20:46 DC 05/13/20 20:45 6.25 MG Vital Signs/I&O 05/13/20 05/13/20 18:12 20:50 Temp 37.1 36.2 Pulse 64 58 Resp 20 18 B/P (MAP) 175/86 (115) 140/53 Pulse Ox 100 100 O2 Delivery Room Air Room Air Capillary Refill : Less Than 3 Seconds Blood Pressure Mean: 115 Progress Note : Progress Note Labs were obtained and reassessed. Creatinine is 5.14. This was discussed with Dr. Dinh, soa engineer on-call for Dr. Venegas. He advised discontinuing lisinopril and replacing with Coreg. He advised against IV fluids since patient is hypertensive. Dr. Dinh did not believe patient needed to be admitted tonight but should follow-up tomorrow with Dr. Venegas, and he will help initiate that contact. Departure Impression Primary Impression: Acute kidney injury superimposed on chronic kidney disease Additional Impression: Chronic anemia Disposition: 01 HOME, SELF-CARE Condition: Stable Departure-Patient Inst. Referrals: NO,LOCAL PHYSICIAN (PCP/Family) Primary Care Physician Patient Instructions: Kidney Failure Add. Discharge Instructions: Contact Dr. Venegas's office tomorrow morning at [phone] for further instructions. In the meantime continue to drink plenty of water. Stop lisinopril and add Coreg as prescribed. If you develop worsening symptoms of kidney failure which might include nausea, vomiting, shortness of breath, confusion, swelling, progressive weakness, etc., please return to the emergency room, preferably [facility] if you are able. Call with questions or concerns. All discharge instructions reviewed with patient and/or family. Voiced understanding. Scripts Carvedilol (Coreg) 6.25 Mg Tablet 6.25 MG PO BID, #60 TAB Prov: LUCY CLARKE MD 05/13/20 LUCY CLAREK MD May 13, 2020 20:28
[2020-05-13] MEDS ORDERED: CARV6.25 PO (20:38)
[2020-05-13] MEDS ORDERED: CARVEDILOL 6.25 MG (COREG) TAB PO ONE (20:45)
[2020-05-13 20:50] VITALS: BP 140/53
== END 2020-05-13 20:50 | disposition home or self-care (01) ==
LOC: EDUNIT# 18:01 → ER 18:04
DX: I12.9 Hypertensive chronic kidney disease with stage 1 through stage 4 chronic kidney disease, or unspecified chronic kidney disease (principal); N17.9 Acute kidney failure, unspecified; N18.9 Chronic kidney disease, unspecified; D64.9 Anemia, unspecified; E11.22 Type 2 diabetes mellitus with diabetic chronic kidney disease; K21.9 Gastro-esophageal reflux disease without esophagitis; I25.2 Old myocardial infarction; Z85.46 Personal history of malignant neoplasm of prostate; Z87.891 Personal history of nicotine dependence; Z95.5 Presence of coronary angioplasty implant and graft; Z80.8 Family history of malignant neoplasm of other organs or systems; Z83.3 Family history of diabetes mellitus; Z20.822 Contact with and (suspected) exposure to COVID-19; Z79.84 Long term (current) use of oral hypoglycemic drugs; Z79.82 Long term (current) use of aspirin
CPT/HCPCS: 36415; 80053; 81000; 83735; 85025; 87635

== ENCOUNTER → 2020-05-16 | Outpatient (CLI) | payer MEDICARE, MEDICAID ==
[~2020-05-16] MED LIST changes: +CARV6.25 PO
[2020-05-16 13:57] LABS: ALBUMIN 3.7 GM/DL (3.2-4.5)
[2020-05-16 13:58] LABS: POTASSIUM 4.9 MMOL/L (3.6-5.0)
[2020-05-16 13:59] LABS: CALCIUM 8.2 MG/DL (8.5-10.1)
[2020-05-16 14:04] LABS: CREATININE SERUM 4.76 MG/DL (0.60-1.30)
== END ==
LOC: LAB 13:23
PROVIDERS: ATTEND Internal Medicine Nephrology
DX: N18.4 Chronic kidney disease, stage 4 (severe) (principal)
CPT/HCPCS: 36415; 80069

== ENCOUNTER → 2020-06-25 | Outpatient (CLI) | payer MEDICARE, MEDICAID ==
[~2020-06-25] MED LIST changes: -ISOS30TA3 PO; +ISOS30TA82 PO; -LISI-556 PO; +LISI-729 PO; -LISI10TA2 PO; +LISI10TA25 PO; +MONT10TA32 PO; -MONT10TA97 PO
== END ==
LOC: CARD 11:30
PROVIDERS: ATTEND Internal Medicine Cardiovascular Disease
DX: I08.1 Rheumatic disorders of both mitral and tricuspid valves (principal); I10 Essential (primary) hypertension
CPT/HCPCS: 93306

== ENCOUNTER → 2020-06-27 | Outpatient (CLI) | payer MEDICARE, MEDICAID ==
[~2020-06-27] MED LIST changes: +CATHETER FLUSH 10 ML SYR IV PRN; +NITROGLYCERIN 0.4 MG SL TABS BTL 25'S SL ONE; +REGADENOSON 0.4 MG/5 ML SYR (LEXISCAN) IV ONE
[2020-06-27 09:05] VITALS: BP 164/73
[2020-06-27 09:13] VITALS: BP 120/55
[2020-06-27 09:15] VITALS: BP 137/58
--- NOTE | 2020-06-27 12:24 | Cardiology Stress Test Report ---
Stress Test Report Date of Procedure/Referring: Date of Procedure: Jun 27, 2020 PCP Kelly Dsouza MD Admitting Physician No,Local Physician Indications: CP Baseline Heart Rate: 59 Baseline Blood Pressure: Blood Pressure Systolic: 137 Blood Pressure Diastolic: 58 Baseline Vitals Vital Signs Date Time Temp Pulse Resp B/P (MAP) Pulse Ox O2 Delivery O2 Flow Rate FiO2 06/27/20 09:05 57 18 164/73 (103) 99 Room Air Baseline EKG: Baseline EKG: NSR Summary After explaining the procedure to the patient, he signed a consent and then brought to the stress nuclear laboratory. Patient received 0.4 mg Lexiscan for stress test, ECG, heart rate and blood pressure were monitored continuously. Resting and stress dose of radio tracer were injected, imaging was acquired and reviewed in short axis, horizontal long axis and vertical long axis views. TID: 0.97 SSS: 8 SDS: 0 EF: 66 1. Patient tolerated Lexiscan well, developed chest pain responded to nitroglycerin 2. Minimal nondiagnostic EKG changes. 3. Increased intestinal uptake with decreased uptake involving the whole inferior wall, inferoapex and inferolateral wall with mild reversibility 4. Normal left ventricular size, EF 66 percent KELLY DSOUZA MD Jun 27, 2020 12:24
== END ==
LOC: CARD 07:45
PROVIDERS: ATTEND Internal Medicine Cardiovascular Disease
DX: R07.9 Chest pain, unspecified (principal); I10 Essential (primary) hypertension
CPT/HCPCS: 78452; 93017

== ENCOUNTER → 2020-07-04 | Day surgery (SDC) | payer MEDICARE, MEDICAID ==
[~2020-07-04] VITALS: Ht 177.8 cm; Wt 72.3 kg
[~2020-07-04] MED LIST changes: +AMLO-250 PO; +CARV6.252 PO; -CATHETER FLUSH 10 ML SYR IV PRN; +FERR325T18 PO; +HEParin (CATH LAB) 0 ML IV ONE; +LATA2.5D19 OU; +LIDOCAINE 1% INJ 20 ML 20 ML VIAL ONE; +LUTE20TA PO; -NITROGLYCERIN 0.4 MG SL TABS BTL 25'S SL ONE; +NS IV 1000 ML 1,000 ML IV SCH; +NS IV 1000 ML 1,000 ML ONE; -REGADENOSON 0.4 MG/5 ML SYR (LEXISCAN) IV ONE; +SITA25TA5 PO; +SODI325T PO; +TICA60TA PO; +VITA-203 PO; +VITA1TAB17 PO; +ZINC50TA58 PO
[2020-07-04 09:06] VITALS: BP 124/70
--- NOTE | 2020-07-04 09:14 | Diagnostic Imaging Report ---
Indication: Preop for heart catheterization. Time of exam: 9:07 AM Correlation is made with prior chest from 06/06/2018. The heart size is normal. The pulmonary vascularity is unremarkable. The lungs are clear. No infiltrate, effusion or pneumothorax is detected. Impression: No acute cardiopulmonary process is detected. Dictated by: Dictated on workstation # [id number]
[2020-07-04 09:31] LABS: HEMOGLOBIN 8.6 g/dL (13.3-17.7); MEAN PLATELET VOLUME 9.9 fL (9.0-12.2); WHITE BLOOD COUNT 5.7 10^3/uL (4.3-11.0)
[2020-07-04 09:35] LABS: INR 1.1 (0.8-1.4); PROTHROMBIN TIME PATIENT 14.5 SEC (12.2-14.7)
[2020-07-04 09:41] LABS: ALBUMIN 3.6 GM/DL (3.2-4.5); BILIRUBIN,TOTAL 0.4 MG/DL (0.1-1.0); CALCIUM 8.4 MG/DL (8.5-10.1); CREATININE SERUM 4.02 MG/DL (0.60-1.30); POTASSIUM 4.5 MMOL/L (3.6-5.0); TOTAL PROTEIN 6.6 GM/DL (6.4-8.2)
[2020-07-04 09:43] LABS: CHOLESTEROL 170 MG/DL (< 200); HDL CHOLESTEROL 42 MG/DL (40-60); TRIGLYCERIDES 91 MG/DL (<150); VLDL CHOLESTEROL 18 MG/DL (5-40)
== END ==
LOC: CATH 08:31
PROVIDERS: ATTEND Internal Medicine Cardiovascular Disease
DX: I25.10 Atherosclerotic heart disease of native coronary artery without angina pectoris (principal); Z53.8 Procedure and treatment not carried out for other reasons; I65.23 Occlusion and stenosis of bilateral carotid arteries; I12.9 Hypertensive chronic kidney disease with stage 1 through stage 4 chronic kidney disease, or unspecified chronic kidney disease; N18.9 Chronic kidney disease, unspecified; E11.22 Type 2 diabetes mellitus with diabetic chronic kidney disease; I08.1 Rheumatic disorders of both mitral and tricuspid valves; D89.2 Hypergammaglobulinemia, unspecified; E78.2 Mixed hyperlipidemia; Z79.899 Other long term (current) drug therapy; Z87.891 Personal history of nicotine dependence
CPT/HCPCS: 36415; 71045; 80053; 80061; 85027; 85610; 85730; 87081

== ENCOUNTER → 2020-08-13 | Outpatient (CLI) | payer MEDICARE, MEDICAID ==
[~2020-08-13] MED LIST changes: -HEParin (CATH LAB) 0 ML IV ONE; -LIDOCAINE 1% INJ 20 ML 20 ML VIAL ONE; -NS IV 1000 ML 1,000 ML IV SCH; -NS IV 1000 ML 1,000 ML ONE
[2020-08-13 09:44] LABS: HEMOGLOBIN 8.9 g/dL (13.3-17.7); MEAN PLATELET VOLUME 9.1 fL (9.0-12.2); WHITE BLOOD COUNT 5.8 10^3/uL (4.3-11.0)
[2020-08-13 10:13] LABS: ALBUMIN 3.6 GM/DL (3.2-4.5); BILIRUBIN,TOTAL 0.3 MG/DL (0.1-1.0); CALCIUM 8.4 MG/DL (8.5-10.1); CREATININE SERUM 3.32 MG/DL (0.60-1.30); POTASSIUM 4.5 MMOL/L (3.6-5.0); TOTAL PROTEIN 6.6 GM/DL (6.4-8.2)
== END ==
LOC: LAB 08:59
PROVIDERS: ATTEND Urology
DX: C61 Malignant neoplasm of prostate (principal)
CPT/HCPCS: 36415; 80053; 84153; 84403; 85027

== ENCOUNTER → 2020-09-18 | Outpatient (CLI) | payer MEDICARE, MEDICAID ==
[2020-09-18 14:12] LABS: BASOPHILS % (AUTO) 1 % (0-10); EOSINOPHILS # (AUTO) 0.2 10^3/uL (0.0-0.3); EOSINOPHILS % (AUTO) 3 % (0-10); HEMATOCRIT 29 % (40-54); HEMOGLOBIN 9.7 g/dL (13.3-17.7); LYMPHOCYTES # (AUTO) 1.5 10^3/uL (1.0-4.0); LYMPHOCYTES % (AUTO) 23 % (12-44); MEAN CORPUSCULAR HEMOGLOBIN 31 pg (25-34); MEAN CORPUSCULAR HGB CONC 34 g/dL (32-36); MEAN CORPUSCULAR VOLUME 93 fL (80-99); MEAN PLATELET VOLUME 9.7 fL (9.0-12.2); MONOCYTES # (AUTO) 0.6 10^3/uL (0.0-1.0); MONOCYTES % (AUTO) 9 % (0-12); NEUTROPHILS % (AUTO) 64 % (42-75); PLATELET COUNT 187 10^3/uL (130-400); WHITE BLOOD COUNT 6.3 10^3/uL (4.3-11.0)
[2020-09-18 14:22] LABS: ALBUMIN 3.9 GM/DL (3.2-4.5)
[2020-09-18 14:23] LABS: POTASSIUM 4.3 MMOL/L (3.6-5.0)
[2020-09-18 14:24] LABS: CALCIUM 8.7 MG/DL (8.5-10.1)
[2020-09-18 14:29] LABS: CREATININE SERUM 3.14 MG/DL (0.60-1.30); PHOSPHORUS 4.6 MG/DL (2.3-4.7)
[2020-09-18 14:32] LABS: URIC ACID 5.5 MG/DL (2.6-7.2)
== END ==
LOC: LAB 13:19
PROVIDERS: ATTEND Internal Medicine Nephrology
DX: N18.4 Chronic kidney disease, stage 4 (severe) (principal); I10 Essential (primary) hypertension; N25.89 Other disorders resulting from impaired renal tubular function; D64.9 Anemia, unspecified
CPT/HCPCS: 36415; 80069; 82306; 82570; 83970; 84156; 84550; 85025

== ENCOUNTER 2020-11-02 17:50 | Emergency (ER) | payer MEDICARE, MEDICAID ==
[~2020-11-02] VITALS: Ht 177.8 cm; Wt 68.0 kg
[2020-11-02] MEDS ORDERED: ASPIRIN 81 MG CHEW (CHILDREN'S ASA) PO ONE (19:00)
--- NOTE | 2020-11-02 19:00 | ED Cardiac General ---
History of Present Illness General Chief Complaint: Cardiac/General Problems Stated Complaint: HIGH BP Source: patient Exam Limitations: no limitations History of Present Illness Date Seen by Provider: Nov 02, 2020 Time Seen by Provider: 18:35 Initial Comments Patient ER by private conveyance from home chief complaint. His blood pressure was creeping up today and he kept checking it and when he got 155 systolic he decided to come to the ER. He says he was told by his doctor if the blood pressure gets over 150 he needs to come to the ER. He describes some generalized chest tightness off and on over the past 10 days. No cough no shortness of air no history of smoking or lung disease. He does have a history of stents known to Dr. Dsouza as well as chronic kidney disease. They are wanting to do a stress test because of his ongoing chest tightness but we are also trying to preserve his kidney function so they were holding off. He denies a history of hypercholesterolemia but he has diabetes and hypertension on amlodipine 5 mg once a day and metoprolol succinate once a day. He just recently started metoprolol succinate couple months ago. Primary care is Dr. Jin in [place]. The patient states he has been taking his medications on schedule. No exertional dyspnea or chest pain. Chest tightness across the front of his chest. Patient had a treadmill stress test in June, [address] Dsouza demonstrating minimal but nondiagnostic EKG changes. He developed chest pain which responded to nitroglycerin. Increased interstitial uptake with decreased uptake involving the whole inferior wall, inferior apex inferior lateral wall with mild reversibility. EF of 66%. Cardiac catheterization 2017 with stenting right coronary artery. Known occluded branch of the second obtuse marginal there is posterior lateral. 40 to 50% left main coronary artery stenosis and mild LAD disease. Small artery disease. Allergies and Home Medications Allergies Coded Allergies: No Known Drug Allergies (Unverified , 11/10/09) Home Medications Amlodipine Besylate 5 Mg Tablet, 5 MG PO HS, (Reported) Carvedilol 6.25 Mg Tablet, 6.25 MG PO BID, (Reported) Ferrous Sulfate 325 Mg Tablet, 325 MG PO DAILY, (Reported) Latanoprost 2.5 Ml Drops, 1 DROP OU HS, (Reported) Lutein 20 Mg Tablet, 20 MG PO DAILY, (Reported) Multivitamin 1 Each Tablet, 1 TAB PO DAILY, (Reported) [place]-3/Dha/Epa/Fish Oil 1 Each Capsule, 1,000 MG PO DAILY, (Reported) Sitagliptin Phosphate 25 Mg Tablet, 25 MG PO DAILY, (Reported) Sodium Bicarbonate 325 Mg Tablet, 650 MG PO DAILY, (Reported) TAKES 2 (325MG) TABS Ticagrelor 60 Mg Tablet, 60 MG PO BID, (Reported) Vitamin A Palmitate 10,000 Unit Capsule, 10,000 UNIT PO DAILY, (Reported) Vitamin B Complex 1 Each Tablet, 1 EACH PO DAILY, (Reported) Zinc 50 Mg Tablet, 50 MG PO DAILY, (Reported) Patient Home Medication List Home Medication List Reviewed: Yes Review of Systems Review of Systems Constitutional: No chills, No diaphoresis EENTM: No Blurred Vision, No Double Vision Respiratory: Denies Cough, Denies Shortness of Air Cardiovascular: See HPI (Chest tightness across the anterior chest x10 days); Denies Chest Pain, Denies Edema, Denies Lightheadedness Gastrointestinal: Denies Abdominal Pain, Denies Constipated, Denies Nausea Genitourinary: Denies Burning, Denies Drainage Musculoskeletal: No back pain, No joint pain All Other Systems Reviewed Negative Unless Noted: Yes Past Dpgxfnw-Ppsdtu-Ffhvgy Hx Patient Social History Tobacco Use?: No Use of E-Cig and/or Vaping dev: No Substance use?: No Immunizations Up To Date Tetanus Booster (TDap): More than 5yrs Seasonal Allergies Seasonal Allergies: No Past Medical History Surgeries: Yes Abdominal, Appendectomy, Coronary Stent Respiratory: No Cardiac: Yes Coronary Artery Disease, Hypertension Neurological: No Neuropathy Reproductive Disorders: No Genitourinary: Yes Renal Failure Gastrointestinal: Yes Gastroesophageal Reflux Musculoskeletal: No Endocrine: Yes Diabetes, Non-Insulin dep HEENT: No Cancer: Yes Prostate Did You Recieve Any Treatments: Yes What Type of Treatment Did You: Radiation Psychosocial: No Integumentary: No Blood Disorders: No Family Medical History Bone cancer G8 BROTHER Diabetes mellitus 19 MOTHER Heart Disease, Cancer, CAD Over 55 Years Old, Diabetes 57yo sister "in her sleep" Physical Exam Vital Signs Vital Signs - First Documented 11/02/20 11/02/20 18:32 19:15 Temp 37.5 Pulse 62 Resp 18 B/P (MAP) 166/82 (110) Pulse Ox 99 O2 Delivery Room Air O2 Flow Rate 2.00 FiO2 99 Capillary Refill : Height, Weight, BMI Height: 5'10.00" Weight: 172lbs. 5.0oz. [id number]; 22.87 BMI Method:Stated General Appearance: WD/WN, Mild Distress HEENT: PERRL/EOMI, Pharynx Normal, Moist Mucous Membranes Neck: Full Range of Motion, Normal Inspection Respiratory: Chest Non Tender, Lungs Clear, Normal Breath Sounds, No Accessory Muscle Use, No Respiratory Distress Cardiovascular: Regular Rate, Rhythm, No Edema, Normal Peripheral Pulses Gastrointestinal: Non Tender, Soft Extremity: Normal Capillary Refill, Normal Inspection, No Pedal Edema Neurologic/Psychiatric: Alert, Oriented x3 Skin: Normal Color, Warm/Dry Progress/Results/Core Measures Results/Orders Lab Results Laboratory Tests Test 11/02/20 18:58 Range/Units White Blood Count 7.1 4.3-11.0 10^3/uL Red Blood Count 2.81 L 4.30-5.52 10^6/uL Hemoglobin 8.5 L 13.3-17.7 g/dL Hematocrit 25 L 40-54 % Mean Corpuscular Volume 88 80-99 fL Mean Corpuscular Hemoglobin 30 25-34 pg Mean Corpuscular Hemoglobin Concent 34 32-36 g/dL Red Cell Distribution Width 11.8 10.0-14.5 % Platelet Count 168 130-400 10^3/uL Mean Platelet Volume 9.0 9.0-12.2 fL Immature Granulocyte % (Auto) 0 % Neutrophils (%) (Auto) 65 42-75 % Lymphocytes (%) (Auto) 22 12-44 % Monocytes (%) (Auto) 10 0-12 % Eosinophils (%) (Auto) 2 0-10 % Basophils (%) (Auto) 0 0-10 % Neutrophils # (Auto) 4.6 1.8-7.8 10^3/uL Lymphocytes # (Auto) 1.6 1.0-4.0 10^3/uL Monocytes # (Auto) 0.7 0.0-1.0 10^3/uL Eosinophils # (Auto) 0.1 0.0-0.3 10^3/uL Basophils # (Auto) 0.0 0.0-0.1 10^3/uL Immature Granulocyte # (Auto) 0.0 0.0-0.1 10^3/uL Prothrombin Time 13.9 12.2-14.7 SEC INR Comment 1.0 0.8-1.4 Activated Partial Thromboplast Time 32 24-35 SEC Sodium Level 126 L 135-145 MMOL/L Potassium Level 4.3 3.6-5.0 MMOL/L Chloride Level 97 L 98-107 MMOL/L Carbon Dioxide Level 20 L 21-32 MMOL/L Anion Gap 9 5-14 MMOL/L Blood Urea Nitrogen 25 H 7-18 MG/DL Creatinine 3.13 H 0.60-1.30 MG/DL Estimat Glomerular Filtration Rate 24 BUN/Creatinine Ratio 8 Glucose Level 106 H 70-105 MG/DL Calcium Level 8.2 L 8.5-10.1 MG/DL Corrected Calcium 8.6 8.5-10.1 MG/DL Magnesium Level 1.7 1.6-2.4 MG/DL Total Bilirubin 0.5 0.1-1.0 MG/DL Aspartate Amino Transf (AST/SGOT) 16 5-34 U/L Alanine Aminotransferase (ALT/SGPT) 12 0-55 U/L Alkaline Phosphatase 50 40-136 U/L Myoglobin 201.1 H 10.0-92.0 NG/ML Troponin I < 0.028 <0.028 NG/ML B-Type Natriuretic Peptide 279.2 H <100.0 PG/ML Total Protein 6.3 L 6.4-8.2 GM/DL Albumin 3.5 3.2-4.5 GM/DL My Orders Orders - VARUN SLADE Cbc With Automated Diff (11/02/20 18:52) Magnesium (11/02/20 18:52) Chest 1 View, Ap/Pa Only (11/02/20 18:52) Ekg Tracing (11/02/20 18:52) Comprehensive Metabolic Panel (11/02/20 18:52) Myoglobin Serum (11/02/20 18:52) Protime With Inr (11/02/20 18:52) Partial Thromboplastin Time (11/02/20 18:52) O2 (11/02/20 18:52) Monitor-Rhythm Ecg Trace Only (11/02/20 18:52) Lipid Panel (11/03/20 06:00) Ed Iv/Invasive Line Start (11/02/20 18:52) BNP (11/02/20 18:52) Troponin I (11/02/20 18:52) Aspirin Chewable Tablet (Baby Aspirin Ch (11/02/20 19:00) Ct Head Wo (11/02/20 19:06) Amlodipine Tablet (Norvasc Tablet) (11/02/20 21:45) Medications Given in ED Current Medications Medications Dose Ordered Sig/Padma Route Start Time Stop Time Status Last Admin Dose Admin Aspirin 324 mg ONCE ONCE PO 11/02/20 19:00 11/02/20 19:01 DC 11/02/20 19:14 324 MG Vital Signs/I&O 11/02/20 11/02/20 18:32 19:15 Temp 37.5 Pulse 62 Resp 18 B/P (MAP) 166/82 (110) Pulse Ox 99 O2 Delivery Room Air Nasal Cannula O2 Flow Rate 2.00 FiO2 99 Progress Progress Note #1: Time: 19:00 Progress Note Patient has significant coronary disease. He has some chest tightness. He also indicates that he had a fall yesterday striking his head and since he is on [place]il[place] with a CT of his head and C-spine. Plan to give EKG give him some aspirin and discussed maybe starting his amlodipine twice a day since that could be the reason why he is having elevated pressure and chest tightness. With his history of chronic kidney disease however we will discussed the case with cardiology on-call how best to manage him. Progress Note #2: Time: 22:09 Progress Note Discussed the case with Dr. 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 Return precautions discussed. Patient is in agreement with the plan. Initial ECG Impression Date: Nov 02, 2020 Initial ECG Impression Time: 20:23 Initial ECG Rate: 62 Initial ECG Rhythm: Normal Sinus Initial ECG Intervals: Normal Initial ECG Impression: Normal Initial ECG Comparisson: No Previous ECG Available Comment Normal sinus rhythm without clinically relevant ST changes. Diagnostic Imaging Diagonstic Imaging: Xray Plain Films/CT/US/NM/MRI: chest Comments [facility] [place], [place] NAME: PRISCILLA SALINAS [facility] REC#: [id number] PT STATUS: REG ER : 1945 PHYSICIAN: VARUN SLADE MD ADMIT DATE: 11/02/20/ER Signed Date of Exam:11/02/20 CHEST 1 VIEW, AP/PA ONLY INDICATION: Chest pain. COMPARISON: 07/04/2020. EXAMINATION: Single view of the chest was obtained. FINDINGS: Clear lungs, bilaterally. The heart is normal. There is no pneumothorax but osseous structures are normal. IMPRESSION: Negative chest. Dictated by: Dictated on workstation # [id number] Dict: 11/02/201939 Trans: 11/02/202033 PJSarah [id number] Interpreted by: JAC WHITE Electronically signed by: JAC WHITE 11/02/202033 Reviewed: Reviewed by Me Diagonstic Imaging: CT Plain Films/CT/US/NM/MRI: head Comments [facility] [place] NAME: PRISCILLA SALINAS [facility] REC#: [id number] PT STATUS: REG ER : 1945 PHYSICIAN: VARUN SLADE MD ADMIT DATE: 11/02/20/ER Signed Date of Exam:11/02/20 CT HEAD WO PROCEDURE: CT head without contrast. TECHNIQUE: Multiple contiguous axial images were obtained through the brain without the use of intravenous contrast. Auto Exposure Controls were utilized during the CT exam to meet ALARA standards for radiation dose reduction. INDICATION: Hypertension headache. COMPARISON: 09/07/2015. FINDINGS: Ventricles are normal in size, shape and position. There is no midline shift or mass effect. There is no hemorrhage or evidence for acute ischemia. No extra-axial fluid collection or mass is seen. The paranasal sinuses and mastoids are clear. There is no skull fracture. IMPRESSION: Negative CT head. Dictated by: Dictated on workstation # [id number] Dict: 11/02/201935 Trans: 11/02/202033 [id number] [id number] Interpreted by: JAC WHITE Electronically signed by: JAC WHITE 11/02/202033 Reviewed: Reviewed by Me Departure Impression Primary Impression: Hypertension Qualified Codes: I10 - Essential (primary) hypertension Disposition: 01 HOME, SELF-CARE Condition: Stable Departure-Patient Inst. Decision time for Depature: 22:10 Referrals: ALEJANDRO JIN MD (PCP) Primary Care Physician KELLY DSOUZA MD Patient Instructions: High Blood Pressure (DC) Add. Discharge Instructions: Return to the ER if your blood pressure consistently stays above 180/105 or you experience chest pain/shortness of air. Check your blood pressure first thing in the morning after you wake up. Start taking your amlodipine 10 mg daily for better coverage of your blood pressure. Continue taking your metoprolol the same way as prescribed. Thursday morning call Dr. Dsouza and request a follow-up appointment that week. All discharge instructions reviewed with patient and/or family. Voiced understanding. Scripts Amlodipine Besylate (Amlodipine Besylate) 10 Mg Tablet 10 MG PO DAILY for 14 Days, #14 TAB 0 Refills Prov: VARUN SLADE 11/02/20 Copy Copies To 1: KELLY DSOUZA MD, TITUS J Nov 02, 2020 19:00
[2020-11-02 19:07] LABS: BASOPHILS % (AUTO) 0 % (0-10); EOSINOPHILS # (AUTO) 0.1 10^3/uL (0.0-0.3); EOSINOPHILS % (AUTO) 2 % (0-10); HEMATOCRIT 25 % (40-54); HEMOGLOBIN 8.5 g/dL (13.3-17.7); LYMPHOCYTES # (AUTO) 1.6 10^3/uL (1.0-4.0); LYMPHOCYTES % (AUTO) 22 % (12-44); MEAN CORPUSCULAR HEMOGLOBIN 30 pg (25-34); MEAN CORPUSCULAR HGB CONC 34 g/dL (32-36); MEAN CORPUSCULAR VOLUME 88 fL (80-99); MONOCYTES # (AUTO) 0.7 10^3/uL (0.0-1.0); MONOCYTES % (AUTO) 10 % (0-12); NEUTROPHILS # (AUTO) 4.6 10^3/uL (1.8-7.8); NEUTROPHILS % (AUTO) 65 % (42-75); PLATELET COUNT 168 10^3/uL (130-400); WHITE BLOOD COUNT 7.1 10^3/uL (4.3-11.0)
[2020-11-02 19:21] LABS: PROTHROMBIN TIME PATIENT 13.9 SEC (12.2-14.7)
--- NOTE | 2020-11-02 19:45 | Diagnostic Imaging Report ---
INDICATION: Chest pain. COMPARISON: 07/04/2020. EXAMINATION: Single view of the chest was obtained. FINDINGS: Clear lungs, bilaterally. The heart is normal. There is no pneumothorax but osseous structures are normal. IMPRESSION: Negative chest. Dictated by: Dictated on workstation # [id number]
--- NOTE | 2020-11-02 19:48 | Diagnostic Imaging Report ---
PROCEDURE: CT head without contrast. TECHNIQUE: Multiple contiguous axial images were obtained through the brain without the use of intravenous contrast. Auto Exposure Controls were utilized during the CT exam to meet ALARA standards for radiation dose reduction. INDICATION: Hypertension headache. COMPARISON: 09/07/2015. FINDINGS: Ventricles are normal in size, shape and position. There is no midline shift or mass effect. There is no hemorrhage or evidence for acute ischemia. No extra-axial fluid collection or mass is seen. The paranasal sinuses and mastoids are clear. There is no skull fracture. IMPRESSION: Negative CT head. Dictated by: Dictated on workstation # [id number]
[2020-11-02 19:56] LABS: ALBUMIN 3.5 GM/DL (3.2-4.5); BILIRUBIN,TOTAL 0.5 MG/DL (0.1-1.0); CALCIUM 8.2 MG/DL (8.5-10.1); CREATININE SERUM 3.13 MG/DL (0.60-1.30); MAGNESIUM 1.7 MG/DL (1.6-2.4); POTASSIUM 4.3 MMOL/L (3.6-5.0); TOTAL PROTEIN 6.3 GM/DL (6.4-8.2)
[2020-11-02] MEDS ORDERED: amLODIPine 5 MG (NORVASC) TAB PO ONE (21:45)
[2020-11-02] MEDS ORDERED: AMLO-251 PO (22:12)
[2020-11-02 22:30] VITALS: BP 152/78
== END 2020-11-02 22:18 | disposition home or self-care (01) ==
LOC: EDUNIT# 17:50 → ER 17:51
DX: I10 Essential (primary) hypertension (principal); I25.10 Atherosclerotic heart disease of native coronary artery without angina pectoris; E11.9 Type 2 diabetes mellitus without complications; Z79.899 Other long term (current) drug therapy
CPT/HCPCS: 36415; 70450; 71045; 80053; 83735; 83874; 83880; 84484; 85025; 85610; 85730; 93005; 93041

== ENCOUNTER → 2020-12-04 | Outpatient (CLI) | payer MEDICARE, MEDICAID ==
[~2020-12-04] MED LIST changes: +AMLO-251 PO
[2020-12-04 14:18] LABS: BASOPHILS % (AUTO) 1 % (0-10); EOSINOPHILS # (AUTO) 0.2 10^3/uL (0.0-0.3); EOSINOPHILS % (AUTO) 3 % (0-10); HEMATOCRIT 29 % (40-54); HEMOGLOBIN 9.6 g/dL (13.3-17.7); LYMPHOCYTES # (AUTO) 1.5 10^3/uL (1.0-4.0); LYMPHOCYTES % (AUTO) 25 % (12-44); MEAN CORPUSCULAR HEMOGLOBIN 31 pg (25-34); MEAN CORPUSCULAR HGB CONC 34 g/dL (32-36); MEAN CORPUSCULAR VOLUME 92 fL (80-99); MEAN PLATELET VOLUME 8.5 fL (9.0-12.2); MONOCYTES # (AUTO) 0.5 10^3/uL (0.0-1.0); MONOCYTES % (AUTO) 9 % (0-12); NEUTROPHILS # (AUTO) 3.6 10^3/uL (1.8-7.8); NEUTROPHILS % (AUTO) 63 % (42-75); PLATELET COUNT 199 10^3/uL (130-400); WHITE BLOOD COUNT 5.8 10^3/uL (4.3-11.0)
[2020-12-04 14:37] LABS: ALBUMIN 3.9 GM/DL (3.2-4.5); CALCIUM 8.8 MG/DL (8.5-10.1); CREATININE SERUM 3.1 MG/DL (0.60-1.30); PHOSPHORUS 3.6 MG/DL (2.3-4.7); POTASSIUM 4.2 MMOL/L (3.6-5.0); URIC ACID 5.2 MG/DL (2.6-7.2)
[2020-12-04 14:55] LABS: BAND NEUTROPHILS 0 %; BASOPHILS % (MANUAL) 0 %; EOSINOPHILS % (MANUAL) 2 %; LYMPHOCYTES % (MANUAL) 31 %; MONOCYTES % (MANUAL) 4 %; NEUTROPHILS % (MANUAL) 63 %; RBC MORPH NORMAL
== END ==
LOC: LAB 13:44
PROVIDERS: ATTEND Internal Medicine Nephrology
DX: N18.4 Chronic kidney disease, stage 4 (severe) (principal); D63.1 Anemia in chronic kidney disease; N25.89 Other disorders resulting from impaired renal tubular function
CPT/HCPCS: 36415; 80069; 82570; 82652; 83970; 84156; 84550; 85007; 85027

== ENCOUNTER 2021-01-11 22:47 | Observation (INO) | payer MEDICARE, MEDICAID ==
[~2021-01-11] VITALS: Ht 177 cm; Wt 72.8 kg
[2021-01-11] MEDS ORDERED: ASPIRIN 81 MG CHEW (CHILDREN'S ASA) PO ONE (23:15)
[2021-01-11] MEDS ORDERED: NITROGLYCERIN 0.4 MG SL TABS BTL 25'S SL PRN (23:15)
--- NOTE | 2021-01-11 23:19 | ED Chest Pain ---
General Chief Complaint: Cardiac/General Problems Stated Complaint: HIGH BP, 183/90 Source: patient Exam Limitations: no limitations History of Present Illness Date Seen by Provider: Jan 11, 2021 Time Seen by Provider: 23:03 Initial Comments Patient to ER by private conveyance from home with chief complaint that about 5:00 he started feeling tired, weak and having a headache. He says when this happens usually because his blood pressure goes up so he checked his blood pressure and it was 136 which is above his normal 120 systolic. He did not take his blood pressure this morning so he took it and his blood pressure continued to creep up throughout the evening until about half an hour prior to arrival he began to experience some 1 out of 10 chest tightness/pressure substernal. He does have a history of 2 stents and is known to Dr. Dsouza, Dr. Morrow and Dr. Jin respectively. He is not having any swelling in his feet, shortness of air, orthopnea, cough, fevers, diarrhea, constipation or nausea. Stress test with decreased uptake involving the whole inferior wall, inferior apex, inferior lateral wall with mild reversibility. EF of 66% on June [address] Dsouza. Developed chest pain during the Lexiscan which responded to nitroglycerin. Stents placed in 2018. Allergies and Home Medications Allergies Coded Allergies: No Known Drug Allergies (Unverified , 11/10/09) Patient Home Medication List Home Medication List Reviewed: Yes Amlodipine Besylate (Amlodipine Besylate) 10 Mg Tablet, 10 MG PO DAILY Prescribed by: VARUN SLADE on 11/02/202211 Last Action: Last Taken Edited Aspirin (Aspirin EC) 81 Mg Tablet.dr, 81 MG PO DAILY Prescribed by: JIM ROCHA JR, MD on 01/12/21 1346 Carvedilol (Carvedilol) 12.5 Mg Tablet, 12.5 MG PO BID Prescribed by: JIM ROCHA JR, MD on 01/12/21 1346 Ferrous Sulfate (Ferrous Sulfate) 325 Mg Tablet, 325 MG PO DAILY, (Reported) Entered as Reported by: MIKE CHERY on 07/04/20936 Last Action: Last Taken Edited Latanoprost (Xalatan) 2.5 Ml Drops, 1 DROP OU HS, (Reported) Entered as Reported by: MIEK CHERY on 07/04/20936 Last Action: Last Taken Edited Lutein (Lutein) 20 Mg Tablet, 20 MG PO DAILY, (Reported) Entered as Reported by: MIKE CHERY on 07/04/20936 Last Action: Last Taken Edited Multivitamin (Multivitamins) 1 Each Tablet, 1 TAB PO DAILY, (Reported) Entered as Reported by: JIM GIBBS on 09/26/15834 Last Action: Last Taken Edited Nitroglycerin (Nitroglycerin) 0.4 Mg Tab.subl, 0.4 MG SL NEEDED PRN for CHEST PAIN (ANGINA) Prescribed by: JIM ROCHA JR, MD on 01/12/21 1346 [place]-3/Dha/Epa/Fish Oil (Fish Oil 1,000 mg Softgel) 1 Each Capsule, 1,000 MG PO DAILY, (Reported) Entered as Reported by: JIM GIBBS on 09/26/15834 Last Action: Last Taken Edited Rosuvastatin Calcium (Rosuvastatin Calcium) 20 Mg Tablet, 20 MG PO HS Prescribed by: JIM ROCHA JR, MD on 01/12/21 1346 Sitagliptin Phosphate (Januvia) 25 Mg Tablet, 25 MG PO DAILY, (Reported) Entered as Reported by: MIKE CHERY on 07/04/20936 Last Action: Last Taken Edited Sodium Bicarbonate (Sodium Bicarbonate) 325 Mg Tablet, 650 MG PO DAILY, (Reported) Entered as Reported by: MIKE CHERY on 07/04/20936 Last Action: Last Taken Edited Ticagrelor (Brilinta) 60 Mg Tablet, 60 MG PO BID, (Reported) Entered as Reported by: MIKE CHERY on 07/04/20936 Last Action: Last Taken Edited Vitamin A Palmitate (Vitamin A) 10,000 Unit Capsule, 10,000 UNIT PO DAILY, (Reported) Entered as Reported by: MIKE CHERY on 07/04/20936 Last Action: Last Taken Edited Vitamin B Complex (Vitamin B Complex) 1 Each Tablet, 1 EACH PO DAILY, (Reported) Entered as Reported by: MIKE CHERY on 07/04/20936 Last Action: Last Taken Edited Zinc (Zinc) 50 Mg Tablet, 50 MG PO DAILY, (Reported) Entered as Reported by: MIKE CHERY on 07/04/20936 Last Action: Last Taken Edited Discontinued Medications Amlodipine Besylate (Amlodipine Besylate) 5 Mg Tablet, 5 MG PO HS, (Reported) Entered as Reported by: MIKE CHERY on 07/04/20936 Last Action: Last Taken Edited Carvedilol (Carvedilol) 6.25 Mg Tablet, 6.25 MG PO BID, (Reported) Entered as Reported by: MIKE CHERY on 07/04/20936 Last Action: Last Taken Edited Review of Systems Review of Systems Constitutional: No chills, No fever, No malaise; weakness EENTM: No Blurred Vision, No Double Vision Respiratory: Denies Cough, Denies Shortness of Air Cardiovascular: See HPI, Chest Pain; Denies Edema, Denies Irregular Heart Rate, Denies Lightheadedness Gastrointestinal: Denies Constipated, Denies Diarrhea, Denies Nausea Genitourinary: Denies Burning, Denies Discharge Musculoskeletal: No back pain, No joint pain Skin: No pruritus, No rash Psychiatric/Neurological: Headache; Denies Numbness, Denies Paresthesia Hematologic/Lymphatic: Denies Anemia, Denies Blood Clots All Other Systems Reviewed Negative Unless Noted: Yes Past Pncvrkm-Bywxln-Vguuwn Hx Patient Social History Tobacco Use?: No Substance use?: No Immunizations Up To Date Tetanus Booster (TDap): More than 5yrs First/Initial COVID19 Vaccinat: 2020 Second COVID19 Vaccination Conrado: 2020 Seasonal Allergies Seasonal Allergies: No Past Medical History Surgery/Hospitalization HX: NIDDM. [place] X2. STENTS. KIDNEY FAILURE Surgeries: Yes Abdominal, Appendectomy, Coronary Stent Respiratory: No Cardiac: Yes Coronary Artery Disease, Hypertension Neurological: No Neuropathy Reproductive Disorders: No Genitourinary: Yes Renal Failure Gastrointestinal: Yes Gastroesophageal Reflux Musculoskeletal: No Endocrine: Yes Diabetes, Non-Insulin dep HEENT: No Cancer: Yes Prostate Did You Recieve Any Treatments: Yes What Type of Treatment Did You: Radiation Psychosocial: No Integumentary: No Blood Disorders: No Family Medical History Bone cancer G8 BROTHER Diabetes mellitus 19 MOTHER Heart Disease, Cancer, CAD Over 55 Years Old, Diabetes 57yo sister "in her sleep" Physical Exam Vital Signs Vital Signs - First Documented 01/11/21 23:00 Temp 36.2 Pulse 53 Resp 18 B/P (MAP) 183/91 (121) Pulse Ox 100 O2 Delivery Room Air Capillary Refill : NONE Height, Weight, BMI Height: 5'10.00" Weight: 172lbs. 5.0oz. 78.648502yg; 21.00 BMI Method:Stated General Appearance: WD/WN, Mild Distress HEENT: PERRL/EOMI, Pharynx Normal, Moist Mucous Membranes Neck: Full Range of Motion, Normal Inspection Respiratory: No Chest Non Tender (Mildly tender to palpation. Reproduces symptoms.); Lungs Clear, Normal Breath Sounds, No Accessory Muscle Use, No Respiratory Distress Cardiovascular: Regular Rate, Rhythm, No Edema, Normal Peripheral Pulses Gastrointestinal: Normal Bowel Sounds, Non Tender, Soft Extremity: Normal Capillary Refill, Normal Inspection, No Pedal Edema Neurologic/Psychiatric: Alert, Oriented x3 Skin: Normal Color, Warm/Dry Progress/Results/Core Measures Results/Orders Lab Results Laboratory Tests Test 01/11/21 23:11 01/12/21 00:00 Range/Units White Blood Count 6.5 4.3-11.0 10^3/uL Red Blood Count 3.01 L 4.30-5.52 10^6/uL Hemoglobin 9.1 L 13.3-17.7 g/dL Hematocrit 27 L 40-54 % Mean Corpuscular Volume 90 80-99 fL Mean Corpuscular Hemoglobin 30 25-34 pg Mean Corpuscular Hemoglobin Concent 34 32-36 g/dL Red Cell Distribution Width 12.5 10.0-14.5 % Platelet Count 182 130-400 10^3/uL Mean Platelet Volume 9.5 9.0-12.2 fL Immature Granulocyte % (Auto) 1 % Neutrophils (%) (Auto) 61 42-75 % Lymphocytes (%) (Auto) 27 12-44 % Monocytes (%) (Auto) 9 0-12 % Eosinophils (%) (Auto) 2 0-10 % Basophils (%) (Auto) 0 0-10 % Neutrophils # (Auto) 3.9 1.8-7.8 10^3/uL Lymphocytes # (Auto) 1.8 1.0-4.0 10^3/uL Monocytes # (Auto) 0.6 0.0-1.0 10^3/uL Eosinophils # (Auto) 0.1 0.0-0.3 10^3/uL Basophils # (Auto) 0.0 0.0-0.1 10^3/uL Immature Granulocyte # (Auto) 0.0 0.0-0.1 10^3/uL Prothrombin Time 13.6 12.2-14.7 SEC INR Comment 1.0 0.8-1.4 Activated Partial Thromboplast Time 28 24-35 SEC D-Dimer 0.81 H 0.00-0.49 UG/ML Sodium Level 131 L 135-145 MMOL/L Potassium Level 4.4 3.6-5.0 MMOL/L Chloride Level 102 98-107 MMOL/L Carbon Dioxide Level 18 L 21-32 MMOL/L Anion Gap 11 5-14 MMOL/L Blood Urea Nitrogen 32 H 7-18 MG/DL Creatinine 3.02 H 0.60-1.30 MG/DL Estimat Glomerular Filtration Rate 25 BUN/Creatinine Ratio 11 Glucose Level 91 70-105 MG/DL Calcium Level 8.6 8.5-10.1 MG/DL Corrected Calcium 8.9 8.5-10.1 MG/DL Magnesium Level 2.1 1.6-2.4 MG/DL Total Bilirubin 0.3 0.1-1.0 MG/DL Aspartate Amino Transf (AST/SGOT) 21 5-34 U/L Alanine Aminotransferase (ALT/SGPT) 13 0-55 U/L Alkaline Phosphatase 54 40-136 U/L Myoglobin 144.4 H 10.0-92.0 NG/ML Troponin I < 0.028 <0.028 NG/ML B-Type Natriuretic Peptide 303.5 H <100.0 PG/ML Total Protein 6.5 6.4-8.2 GM/DL Albumin 3.6 3.2-4.5 GM/DL Triglycerides Level 78 <150 MG/DL Cholesterol Level 168 < 200 MG/DL LDL Cholesterol Direct 119 1-129 MG/DL VLDL Cholesterol 16 5-40 MG/DL HDL Cholesterol 45 40-60 MG/DL My Orders Orders - VARUN SLADE Cbc With Automated Diff (01/11/21 23:12) Magnesium (01/11/21 23:12) Chest 1 View, Ap/Pa Only (01/11/21 23:12) Ekg Tracing (01/11/21 23:12) Comprehensive Metabolic Panel (01/11/21 23:12) Myoglobin Serum (01/11/21 23:12) Protime With Inr (01/11/21 23:12) Partial Thromboplastin Time (01/11/21 23:12) O2 (01/11/21 23:12) Monitor-Rhythm Ecg Trace Only (01/11/21 23:12) Lipid Panel (01/12/21 06:00) Ed Iv/Invasive Line Start (01/11/21 23:12) BNP (01/11/21 23:12) Nitroglycerin 0.4 Mg Btl 25's (Nitrostat (01/11/21 23:15) Aspirin Chewable Tablet (Baby Aspirin Ch (01/11/21 23:15) Fibrin Degradation Products (01/11/21 23:11) Troponin I (01/11/21 23:11) Vital Signs/I&O 01/11/21 23:00 Temp 36.2 Pulse 53 Resp 18 B/P (MAP) 183/91 (121) Pulse Ox 100 O2 Delivery Room Air Progress Progress Note : Time: 23:17 Progress Note Aspirin and nitroglycerin. If the patient takes amlodipine it will take some time for it to take and he missed his dose today. He says he still taking Brilinta. He has a history of hypertension, diabetes, he denies hyperlipidemia. He does not smoke. He did not make his follow-up appointment with cardiology from a couple months ago when he was here with the same presentation. Even if he has a negative troponin he would score 4 points on the HEART Pathway Score; High risk 12-65% 30-day MACE. Admit to hospital or observation. Further testing indicated. Initial ECG Impression Date: Jan 11, 2021 Initial ECG Impression Time: 23:07 Initial ECG Rate: 53 Initial ECG Rhythm: Normal Sinus Initial ECG Intervals: Normal Initial ECG Impression: Normal Initial ECG Comparisson: Unchanged Comment Normal sinus rhythm without ST elevation or depression. Diagnostic Imaging Diagonstic Imaging: Xray Plain Films/CT/US/NM/MRI: chest Comments [facility] [place], [place] NAME: PRISCILLA SALINAS [facility] REC#: [id number] PT STATUS: ADM Paul : 1945 PHYSICIAN: VARUN SLADE MD ADMIT DATE: 01/12/21/ Signed Date of Exam:01/11/21 CHEST 1 VIEW, AP/PA ONLY History: Chest pain TECHNIQUE: Frontal view the chest COMPARISON: 11/02/2020 FINDINGS: There is elevation of the right hemidiaphragm otherwise lung volume appears normal. No consolidation is seen. There is no pleural effusion or pneumothorax. The cardiac silhouette is stable. IMPRESSION: No acute pulmonary abnormality. Dictated by: Dictated on workstation # [id number] Dict: 01/12/21 0650 Trans: 01/12/21 1224 [facility] [id number] Interpreted by: LOS SINGLETARY MD Electronically signed by: LOS SINGLETARY MD 01/12/21 1224 Reviewed: Reviewed by Me Departure Impression Primary Impression: Malignant hypertension Additional Impressions: Acute coronary syndrome Chest pain Qualified Codes: R07.9 - Chest pain, unspecified Disposition: ADMITTED INPATIENT Condition: Stable Admissions Decision to Admit Reason: Admit from ER (General) Decision to Admit/Date: Jan 11, 2021 Time/Decision to Admit Time: 23:21 Departure-Patient Inst. Referrals: ALEJANDRO JIN MD (PCP/Family) Primary Care Physician Scripts Aspirin (Aspirin EC) 81 Mg Tablet.dr 81 MG PO DAILY, #90 TAB 3 Refills Prov: JIM ROCHA JR, MD 01/12/21 Carvedilol (Carvedilol) 12.5 Mg Tablet 12.5 MG PO BID, #60 TAB 3 Refills Prov: JIM ROCHA JR, MD 01/12/21 Nitroglycerin (Nitroglycerin) 0.4 Mg Tab.subl 0.4 MG SL NEEDED PRN for CHEST PAIN (ANGINA), #25 TAB 1 Refill Prov: JIM ROCHA JR, MD 01/12/21 Rosuvastatin Calcium (Rosuvastatin Calcium) 20 Mg Tablet 20 MG PO HS, #30 TAB 6 Refills Prov: JIM ROCHA JR, MD 01/12/21 VARUN SLADE Jan 11, 2021 23:19
[2021-01-11 23:34] LABS: BASOPHILS % (AUTO) 0 % (0-10); EOSINOPHILS # (AUTO) 0.1 10^3/uL (0.0-0.3); EOSINOPHILS % (AUTO) 2 % (0-10); HEMATOCRIT 27 % (40-54); HEMOGLOBIN 9.1 g/dL (13.3-17.7); LYMPHOCYTES # (AUTO) 1.8 10^3/uL (1.0-4.0); LYMPHOCYTES % (AUTO) 27 % (12-44); MEAN CORPUSCULAR HEMOGLOBIN 30 pg (25-34); MEAN CORPUSCULAR HGB CONC 34 g/dL (32-36); MEAN CORPUSCULAR VOLUME 90 fL (80-99); MEAN PLATELET VOLUME 9.5 fL (9.0-12.2); MONOCYTES # (AUTO) 0.6 10^3/uL (0.0-1.0); MONOCYTES % (AUTO) 9 % (0-12); NEUTROPHILS # (AUTO) 3.9 10^3/uL (1.8-7.8); NEUTROPHILS % (AUTO) 61 % (42-75); PLATELET COUNT 182 10^3/uL (130-400); WHITE BLOOD COUNT 6.5 10^3/uL (4.3-11.0)
[2021-01-11 23:44] LABS: ALBUMIN 3.6 GM/DL (3.2-4.5); CHLORIDE 102 MMOL/L (98-107); POTASSIUM 4.4 MMOL/L (3.6-5.0); SODIUM 131 MMOL/L (135-145)
[2021-01-11 23:45] LABS: CALCIUM 8.6 MG/DL (8.5-10.1)
[2021-01-11 23:46] LABS: GLUCOSE 91 MG/DL (70-105); TOTAL PROTEIN 6.5 GM/DL (6.4-8.2)
[2021-01-11 23:47] LABS: CARBON DIOXIDE 18 MMOL/L (21-32)
[2021-01-11 23:48] LABS: BILIRUBIN,TOTAL 0.3 MG/DL (0.1-1.0); FIBRIN DEGRADATION PRODUCTS 0.81 UG/ML (0.00-0.49); PROTHROMBIN TIME PATIENT 13.6 SEC (12.2-14.7)
[2021-01-11 23:50] LABS: ALKALINE PHOSPHATASE 54 U/L (40-136); CREATININE SERUM 3.02 MG/DL (0.60-1.30); GFR ESTIMATED 25
[2021-01-11 23:51] LABS: BUN/CREATININE RATIO 11
[2021-01-11 23:53] LABS: ALANINE AMINOTRANSFERASE 13 U/L (0-55); MAGNESIUM 2.1 MG/DL (1.6-2.4)
[2021-01-12] VITALS (9 sets, daily range): BP systolic 118–188; BP diastolic 67–87
[2021-01-12 01:16] LABS: TRIGLYCERIDES 78 MG/DL (<150); VLDL CHOLESTEROL 16 MG/DL (5-40)
[2021-01-12 01:21] LABS: CHOLESTEROL 168 MG/DL (< 200); HDL CHOLESTEROL 45 MG/DL (40-60)
[2021-01-12] MEDS ORDERED: morphine INJ 4 MG/ML 1 ML (VIAL/SYRINGE) IV PRN (02:45)
[2021-01-12] MEDS ORDERED: ONDANSETRON 4 MG/2 ML (SDV) Z0FRAN IVP PRN (02:45)
[2021-01-12] MEDS ORDERED: NITROGLYCERIN 0.4 MG SL TABS BTL 25'S SL PRN ×2 (02:45→13:30)
[2021-01-12] MEDS ORDERED: LACTATED RINGERS 1,000 ML IV SCH (02:45)
--- NOTE | 2021-01-12 07:02 | Diagnostic Imaging Report ---
History: Chest pain TECHNIQUE: Frontal view the chest COMPARISON: 11/02/2020 FINDINGS: There is elevation of the right hemidiaphragm otherwise lung volume appears normal. No consolidation is seen. There is no pleural effusion or pneumothorax. The cardiac silhouette is stable. IMPRESSION: No acute pulmonary abnormality. Dictated by: Dictated on workstation # [id number]
[2021-01-12 08:36] LABS: HEMATOCRIT 30 % (40-54); MEAN CORPUSCULAR HEMOGLOBIN 30 pg (25-34); MEAN CORPUSCULAR HGB CONC 33 g/dL (32-36); MEAN CORPUSCULAR VOLUME 91 fL (80-99); MEAN PLATELET VOLUME 9.9 fL (9.0-12.2); PLATELET COUNT 212 10^3/uL (130-400)
[2021-01-12 08:38] LABS: POTASSIUM 4.1 MMOL/L (3.6-5.0)
[2021-01-12 08:44] LABS: CREATININE SERUM 3.04 MG/DL (0.60-1.30)
[2021-01-12] MEDS ORDERED: ASPIRIN E.C. 81 MG (ECOTRIN) TAB PO SCH (09:00)
--- NOTE | 2021-01-12 09:50 | History & Physical-Hospitalist ---
EMELY HULL A MED STUDENT 01/12/21 0950: History of Present Illness HPI/Chief Complaint 75 yo male presented to ED last night for chest tightness and high blood pressure for several hours. Pt has hx of HTN, myocardial infarction with stent placement, Renal failure, non insulin dependent diabetes and prostate cancer. Pt reports his blood pressure is normally 120s/60s at home, but last noc it went up to 180s/90's, which prompted him to go to the emergency department. Pt reports eating some vegetable soup yesterday that was salty. He does not normally eat salty foods d/t his renal failure and HTN. Pt was admitted to 4th floor for observation for HTN. Pt reports he is compliant with his HTN medications and took them yesterday. He stated his Amlodipine was increased to 10mg in October during his last hospital stay for chest pain. This increase has been controlling his blood pressure up until now. Pt reports his f/u appt from that hospitalization with Dr. Dsouza was cancelled. Pt sees Dr. Jin, PCP and Dr. Morrow, urologist. He visits with these physicians regularly and has regular blood work. Pt believes his last hgbA1c was 5-6%. Pt denies current chest pain, palpitations, cough, SOA, BLAKE, fever or chills. Confirms constipation and urinary frequency. Source: patient Exam Limitations: no limitations Date Seen 01/12/21 Time Seen by a Provider: 09:45 Attending Physician Alethea Flores MD PCP Bry Jin MD Referring Physician Date of Admission Jan 12, 2021 at 00:15 Home Medications & Allergies Home Medications Reviewed patient Home Medication Reconciliation performed by pharmacy medication reconciliations radiography technician and/or nursing. Patients Allergies have been reviewed. Allergies Allergies Coded Allergies No Known Drug Allergies (Unverified11/10/09) Past Xcnzxpu-Qrlvbf-Rjsvqq Hx Patient Social History Tobacco Use?: No Smoking Status: Former Smoker Smokeless Tobacco Frequency: Never a User Use of E-Cig and/or Vaping dev: No Substance use?: No Alcohol Use?: No Pt feels they are or have been: No Immunizations Up To Date Date of Influenza Vaccine: Mar 06, 2020 First/Initial COVID19 Vaccinat: 2020 Second COVID19 Vaccination Conrado: 2020 Tetanus Booster (TDap): Unknown Date of Pneumonia Vaccine: Jul 04, 2014 Seasonal Allergies Seasonal Allergies: No Current Status Advance Directives: No Communicates: Verbally Primary Language: Sri Lankan Preferred Spoken Language: [place] Lankan Is interpretation needed?: No Past Medical History Surgeries: Abdominal, Appendectomy, Coronary Stent Coronary Artery Disease, Hypertension Neuropathy Renal Failure Gastroesophageal Reflux Diabetes, Non-Insulin dep Prostate Did You Recieve Any Treatments: Yes What Type of Treatment Did You: Radiation Blood Disorders: No Family Medical History Bone cancer G8 BROTHER Diabetes mellitus 19 MOTHER Heart Disease, Cancer, CAD Over 55 Years Old, Diabetes 57yo sister "in her sleep" Review of Systems Constitutional: No chills, No fever EENTM: No blurred vision Respiratory: No cough, No dyspnea on exertion, No short of breath Cardiovascular: No chest pain; Hx of Intervention (AL with stent placementx2); No palpitations Gastrointestinal: no symptoms reported Genitourinary: frequency Musculoskeletal: no symptoms reported Skin: no symptoms reported Physical Exam Physical Exam Vital Signs Vital Signs - First Documented 01/11/21 23:00 Temp 36.2 Pulse 53 Resp 18 B/P (MAP) 183/91 (121) Pulse Ox 100 O2 Delivery Room Air Capillary Refill : Less Than 3 Seconds Height, Weight, BMI Height: 5'10.00" Weight: 172lbs. 5.0oz. 78.327796gp; 23.23 BMI Method:Stated General Appearance: No Apparent Distress, WD/WN HEENT: PERRL/EOMI Respiratory: Chest Non Tender, Lungs Clear, Normal Breath Sounds, No Accessory Muscle Use, No Respiratory Distress Cardiovascular: Regular Rate, Rhythm, No Gallop, No Murmur, Normal Peripheral Pulses Gastrointestinal: Normal Bowel Sounds, No Organomegaly, No Pulsatile Mass, Non Tender, Soft Extremity: Normal Capillary Refill, Normal Inspection, Normal Range of Motion, Non Tender, No Calf Tenderness, No Pedal Edema Neurologic/Psychiatric: Alert, Oriented x3, No Motor/Sensory Deficits, Normal Mood/Affect, sole stainer II-XII Norm as Tested Skin: Normal Color, Warm/Dry Results Results/Procedures Labs Laboratory Tests 01/11/21 23:11 01/12/21 05:52 Patient resulted labs reviewed. Assessment/Plan Admission Diagnosis Hypertensive urgency Reason for Inpatient Admission: Hypertensive urgency Assessment and Plan Hypertensive Urgency Coronary Artery Disease with hx of stent placement after AL Chronic Renal Failure Anemia Diabetes-noninsulin dependent with neuropathy Hx of prostate cancer with radiation Hypertensive Urgency -Improving, BP 118/78 this morning. -Continue home medication Amlodipine PO 10mg once daily -D dimer elevated, will continue to monitor labs -Troponin normal Coronary Artery Disease with hx of stent placement after AL -Consult cardiology as pt has not seen Dr. Dsouza since last hospitalization -Continue Ticragrelor 60mg BID from home Chronic Renal Failure -Stop LR 100ml/hr -Allow PO fluid intake Anemia -H&H 10 and 30, trending up -Will continue to monitor -Likely d/t chronic renal failure Diabetes-noninsulin dependent with neuropathy -SSI Hx of prostate cancer with radiation ALETHEA FLORES MD 01/12/21 1256: Past Oaawxfw-Uwsagd-Ioskzx Hx Family Medical History Reviewed Nursing Family Hx Bone cancer G8 BROTHER Diabetes mellitus 19 MOTHER Assessment/Plan Admission Diagnosis Admission Status: Observation Assessment and Plan Patient was admitted due to hypertensive emergency with chest pain and headache. He does have a significant history of coronary artery disease and MIs and was observed overnight as well to trend troponins. This morning he reported feeling much better and was requesting discharge home. On repeat vital check his blood pressure was up to systolic of 181. Discussed plan to resume his home medications monitor throughout the afternoon. If blood pressure improves he can discharge home with outpatient follow-up. Cardiology has been consulted. Diagnosis/Problems Diagnosis/Problems (1) CKD (chronic kidney disease) Qualifiers: Chronic kidney disease stage: stage 4 (severe) Qualified Codes: N18.4 - Chronic kidney disease, stage 4 (severe) (2) Malignant hypertension Status: Acute (3) Chest pain Status: Acute Qualifiers: Chest pain type: unspecified Qualified Codes: R07.9 - Chest pain, unspecified (4) Hypertension Status: Acute (5) Non-insulin dependent type 2 diabetes mellitus (6) Coronary artery disease Status: Acute Supervisory-Addendum Brief Verification & Attestation Participated in pt care: history, MDM, physical Personally performed: exam, history, MDM, supervision of care Care discussed with: Medical Student Procedures: n/a Results interpretation: Verified all documentation Verification and Attestation of Medical Student E/M Service A medical student performed and documented this service in my presence. I reviewed and verified all information documented by the medical student and made modifications to such information, when appropriate. I personally performed the physical exam and medical decision making. Alethea Flores, Jan 12, 2021,12:59 EMELY [employer] MED STUDENT Jan 12, 2021 09:50 ALETHEA FLORES MD Jan 12, 2021 12:56
--- NOTE | 2021-01-12 10:25 | Discharge Inst-Simple/Standard ---
Discharge Inst-Standard Patient Instructions/Follow Up Plan of Care/Instructions/FU: Please continue to take your medications as written. Please follow up with your primary care doctor to follow up this hospital stay. Activity as Tolerated: Yes Discharge Diet: Low Sodium Diet, Cardiac Diet Return to The Hospital For: Chest pain,shortness of breath, weakness, confusion, heart racing, fever, if you feel you are getting worse. ALETHEA ALEGRE MD Jan 12, 2021 10:25
[2021-01-12] MEDS ORDERED: amLODIPine 5 MG (NORVASC) TAB PO ONE (11:30)
[2021-01-12] MEDS ORDERED: amLODIPine 10 MG (NORVASC) TAB ONE (11:38)
[2021-01-12] MEDS ORDERED: amLODIPine 10 MG (NORVASC) TAB PO ONE (11:45)
--- NOTE | 2021-01-12 13:43 | Consultation-Cardiology ---
HPI-Cardiology Cardiology Consultation: Date of Consultation 01/12/2021 Date of Admission 01/12/2021 Attending Physician Lavern Flores MD Admitting Physician Bry Jin MD Consulting Physician JIM ROCHA JR, MD HPI: Time Seen by a Provider: 13:42 Chief Complaint: Reason for consultation: Chest pain. I had the pleasure of seeing Shankar on the medical unit at [facility] in [place], [place] today. He normally follows with one of my partners. He has a known history of coronary artery disease with previous stents as well as hypertension, hyperlipidemia, stage III-IV chronic kidney disease and type 2 diabetes mellitus. Yesterday he was sitting at home and felt as though his blood pressure was becoming elevated. He felt a pressure in his head. He just took his blood pressure and he was running around 130-140 mmHg systolic. Normally he runs in the 110 systolic range. A little while later he rechecked his blood pressure and it was 180 mmHg. Then he started having chest tightness and the pressure in his head was worse. He took some aspirin and the pressure in his head and chest subsided for short while. He rechecked his blood pressure and it was again around 130 mmHg. But within a short period of time, he again felt pressure in his head and chest and when he rechecked his blood pressure, it was again over 180 mmHg systolic. He became concerned and came to the emergency room for further evaluation. He was admitted to the hospital overnight for serial troponins. His chest discomfort and pressure feeling in his head gradually subsided overnight. Today he denies any further chest discomfort. He does report having some soup yesterday after which the symptoms started. This was a homemade soup that a friend had given him and he is not sure how much salt is in it. He denies paroxysmal nocturnal dyspnea, orthopnea, palpitations, lightheadedness, syncope, or ankle edema. Certain portions of this document may have been dictated utilizing voice recognition technology. Inherent to this technology, typographical and grammatical errors may exist. As much as I am diligent to identify and correct these mistakes, some errors may remain in the document. Review of Systems-Cardiology Review of Systems Other comments Review of 10 organ systems is as per the history of present illness, otherwise negative. All Other Systems Reviewed Negative Unless Noted: Yes RQI-Mnkeqy-Qmsjuj Hx Patient Social History Smoking Status: Former Smoker Have you traveled recently?: No Alcohol Use?: No Pt feels they are or have been: No Immunizations Up To Date Tetanus Booster (TDap): More than 5yrs Date of Pneumonia Vaccine: Jul 04, 2014 Date of Influenza Vaccine: Mar 06, 2020 Past Medical History PMH As described under Assessment. Family Medical History Family Medical History: The patient does not know of any family history of premature coronary artery disease. Family History: Bone cancer G8 BROTHER Diabetes mellitus 19 MOTHER Allergies and Home Medications Allergies Coded Allergies: No Known Drug Allergies (Unverified , 11/10/09) Patient Home Medication List Home Medication List Reviewed: Yes Amlodipine Besylate (Amlodipine Besylate) 10 Mg Tablet, 10 MG PO DAILY Prescribed by: VARUN SLADE on 11/02/202211 Last Action: Last Taken Edited Aspirin (Aspirin EC) 81 Mg Tablet.dr, 81 MG PO DAILY Prescribed by: JIM ROCHA JR, MD on 01/12/21 1346 Carvedilol (Carvedilol) 12.5 Mg Tablet, 12.5 MG PO BID Prescribed by: JIM ROCHA JR, MD on 01/12/21 1346 Ferrous Sulfate (Ferrous Sulfate) 325 Mg Tablet, 325 MG PO DAILY, (Reported) Entered as Reported by: MIKE CHERY on 07/04/20936 Last Action: Last Taken Edited Latanoprost (Xalatan) 2.5 Ml Drops, 1 DROP OU HS, (Reported) Entered as Reported by: MIKE CHERY on 07/04/20936 Last Action: Last Taken Edited Lutein (Lutein) 20 Mg Tablet, 20 MG PO DAILY, (Reported) Entered as Reported by: MIKE CHERY on 07/04/20936 Last Action: Last Taken Edited Multivitamin (Multivitamins) 1 Each Tablet, 1 TAB PO DAILY, (Reported) Entered as Reported by: JIM GIBBS on 09/26/15 0835 Last Action: Last Taken Edited Nitroglycerin (Nitroglycerin) 0.4 Mg Tab.subl, 0.4 MG SL NEEDED PRN for CHEST PAIN (ANGINA) Prescribed by: JIM ROCHA JR, MD on 01/12/21 1346 [place]-3/Dha/Epa/Fish Oil (Fish Oil 1,000 mg Softgel) 1 Each Capsule, 1,000 MG PO DAILY, (Reported) Entered as Reported by: JIM GIBBS on 09/26/15 0835 Last Action: Last Taken Edited Rosuvastatin Calcium (Rosuvastatin Calcium) 20 Mg Tablet, 20 MG PO HS Prescribed by: JIM ROCHA JR, MD on 01/12/21 1346 Sitagliptin Phosphate (Januvia) 25 Mg Tablet, 25 MG PO DAILY, (Reported) Entered as Reported by: MIKE CHERY on 07/04/20936 Last Action: Last Taken Edited Sodium Bicarbonate (Sodium Bicarbonate) 325 Mg Tablet, 650 MG PO DAILY, (Repo rted) Entered as Reported by: MIKE CHERY on 07/04/20936 Last Action: Last Taken Edited Ticagrelor (Brilinta) 60 Mg Tablet, 60 MG PO BID, (Reported) Entered as Reported by: MIKE CHERY on 07/04/20936 Last Action: Last Taken Edited Vitamin A Palmitate (Vitamin A) 10,000 Unit Capsule, 10,000 UNIT PO DAILY, (Reported) Entered as Reported by: MIKE CHERY on 07/04/20936 Last Action: Last Taken Edited Vitamin B Complex (Vitamin B Complex) 1 Each Tablet, 1 EACH PO DAILY, (Reported) Entered as Reported by: MIKE CHERY on 07/04/20936 Last Action: Last Taken Edited Zinc (Zinc) 50 Mg Tablet, 50 MG PO DAILY, (Reported) Entered as Reported by: MIKE CHERY on 07/04/20936 Last Action: Last Taken Edited Discontinued Medications Amlodipine Besylate (Amlodipine Besylate) 5 Mg Tablet, 5 MG PO HS, (Reported) Entered as Reported by: MIKE CHERY on 07/04/20936 Last Action: Last Taken Edited Carvedilol (Carvedilol) 6.25 Mg Tablet, 6.25 MG PO BID, (Reported) Entered as Reported by: MIKE CHERY on 07/04/20936 Last Action: Last Taken Edited Exam Vital Signs Vital Signs Date Time Temp Pulse Resp B/P (MAP) Pulse Ox O2 Delivery O2 Flow Rate FiO2 01/12/21 12:59 51 01/12/21 11:09 36.2 18 188/81 (116) 100 Room Air Physical Exam General: Alert. No acute distress. Well nourished and appears stated age. Eye: Extraocular movements are intact. Conjunctivae are clear. There are no xanthelasma. HENT: Normocephalic. Atraumatic. Carotid pulsations 2/2 without bruits. Neck: Jugular venous pressure does not appear elevated. No thyromegaly appreciated. Respiratory: Lungs are clear to auscultation. Respirations are non-labored. Breath sounds are equal. Symmetrical chest wall expansion. Cardiovascular: Bradycardic. Regular rhythm. No murmur. No gallop. Point of maximal impulse is not appear displaced. Good pulses equal in all extremities. No edema. Gastrointestinal: Soft. Normal bowel sounds. Skin: Skin turgor is normal. There is no pallor. Musculoskeletal: No kyphosis or scoliosis appreciated. Neurologic: Alert and oriented to person, place, time. Cranial nerves 3-12 appear grossly intact. The patient has good motor tone strength in the upper and lower extremities bilaterally. Psychiatric: Cooperative. Appropriate mood & affect. Labs Laboratory Tests Test 01/11/21 23:11 01/12/21 00:00 01/12/21 05:52 01/12/21 06:30 Range/Units White Blood Count 6.5 6.0 4.3-11.0 10^3/uL Red Blood Count 3.01 L 3.31 L 4.30-5.52 10^6/uL Hemoglobin 9.1 L 10.0 L 13.3-17.7 g/dL Hematocrit 27 L 30 L 40-54 % Mean Corpuscular Volume 90 91 80-99 fL Mean Corpuscular Hemoglobin 30 30 25-34 pg Mean Corpuscular Hemoglobin Concent 34 33 32-36 g/dL Red Cell Distribution Width 12.5 12.5 10.0-14.5 % Platelet Count 182 212 130-400 10^3/uL Mean Platelet Volume 9.5 9.9 9.0-12.2 fL Immature Granulocyte % (Auto) 1 % Neutrophils (%) (Auto) 61 42-75 % Lymphocytes (%) (Auto) 27 12-44 % Monocytes (%) (Auto) 9 0-12 % Eosinophils (%) (Auto) 2 0-10 % Basophils (%) (Auto) 0 0-10 % Neutrophils # (Auto) 3.9 1.8-7.8 10^3/uL Lymphocytes # (Auto) 1.8 1.0-4.0 10^3/uL Monocytes # (Auto) 0.6 0.0-1.0 10^3/uL Eosinophils # (Auto) 0.1 0.0-0.3 10^3/uL Basophils # (Auto) 0.0 0.0-0.1 10^3/uL Immature Granulocyte # (Auto) 0.0 0.0-0.1 10^3/uL Prothrombin Time 13.6 12.2-14.7 SEC INR Comment 1.0 0.8-1.4 Activated Partial Thromboplast Time 28 24-35 SEC D-Dimer 0.81 H 0.00-0.49 UG/ML Sodium Level 131 L 137 135-145 MMOL/L Potassium Level 4.4 4.1 3.6-5.0 MMOL/L Chloride Level 102 107 98-107 MMOL/L Carbon Dioxide Level 18 L 17 L 21-32 MMOL/L Anion Gap 11 13 5-14 MMOL/L Blood Urea Nitrogen 32 H 30 H 7-18 MG/DL Creatinine 3.02 H 3.04 H 0.60-1.30 MG/DL Estimat Glomerular Filtration Rate 25 25 BUN/Creatinine Ratio 11 10 Glucose Level 91 71 70-105 MG/DL Calcium Level 8.6 9.0 8.5-10.1 MG/DL Corrected Calcium 8.9 8.5-10.1 MG/DL Magnesium Level 2.1 1.6-2.4 MG/DL Total Bilirubin 0.3 0.1-1.0 MG/DL Aspartate Amino Transf (AST/SGOT) 21 5-34 U/L Alanine Aminotransferase (ALT/SGPT) 13 0-55 U/L Alkaline Phosphatase 54 40-136 U/L Myoglobin 144.4 H 10.0-92.0 NG/ML Troponin I < 0.028 < 0.028 <0.028 NG/ML B-Type Natriuretic Peptide 303.5 H <100.0 PG/ML Total Protein 6.5 6.4-8.2 GM/DL Albumin 3.6 3.2-4.5 GM/DL Triglycerides Level 78 <150 MG/DL Cholesterol Level 168 < 200 MG/DL LDL Cholesterol Direct 119 1-129 MG/DL VLDL Cholesterol 16 5-40 MG/DL HDL Cholesterol 45 40-60 MG/DL Radiology [facility] NUCLEAR STRESS TEST (06/27/2020): 1. Patient tolerated Lexiscan well, developed chest pain responded to nitroglycerin. 2. Minimal nondiagnostic EKG changes. 3. Increased intestinal uptake with decreased uptake involving the whole inferior wall, inferoapex and inferolateral wall with mild reversibility. 4. Normal left ventricular size, EF 66%. Diagnosis/Problems Diagnosis/Problems (1) Coronary artery disease with unstable angina pectoris Assessment & Plan: From his description, it sounds as though he was having unstable angina. However, he had negative troponin levels despite markedly abnormal renal function. He did not have any ischemic changes on his electrocardiogram. This may have been demand ischemia due to the markedly elevated blood pressure. Now that he is normotensive, his chest discomfort has resolved. He just had a nuclear stress test earlier this year that showed only a mild degree of ischemia in the inferior wall. I recommend that we increase his beta-cass. I will also start statin medication. He should resume low strength aspirin which he had stopped on his own at home. I will also send a prescription for sublingual nitroglycerin to his pharmacy to take as needed. From a cardiac standpoint, the patient can be discharged home. I will have our office contact the patient on Thursday to schedule a follow-up visit in the very near future with Dr. Dsouza. He should return to the hospital if he has chest discomfort that is not relieved by nitroglycerin. (2) Hypertensive urgency Assessment & Plan: He had blood pressure over 180mmHg systolic on admission. This was accompanied by pressure sensation in his head as well as chest pressure. He is now normotensive and his symptoms have improved. I will double his dose of beta-cass as outlined above. (3) Mixed hyperlipidemia Assessment & Plan: His goal LDL is <70 mg/dL. He is well above this goal. He had taken some statin medication in the past but developed diarrhea. I recommend we try him on a moderate dose of rosuvastatin. (4) Chronic kidney disease, stage 4 (severe) Assessment & Plan: When he had the mildly abnormal stress test, plans were being made to consider cardiac catheterization. However, in light of his poor renal function, his primary last greaser has been trying to manage his symptoms medically. Given his poor renal function, any amount of intravascular contrast asked could put him into end-stage renal disease. (5) Type 2 diabetes mellitus with complication Assessment & Plan: Continue current medications for this condition. JIM ROCHA JR, MD Jan 12, 2021 13:43
[2021-01-12] MEDS ORDERED: CARV12.53 PO (13:46)
[2021-01-12] MEDS ORDERED: NITR0.4T42 SL (13:46)
[2021-01-12] MEDS ORDERED: ASPI-1238 PO (13:46)
[2021-01-12] MEDS ORDERED: ROSU20TA32 PO (13:46)
[2021-01-12] MEDS ORDERED: ROSUVASTATIN 20 MG (CRESTOR) TABLET PO SCH (21:00)
[2021-01-13] MEDS ORDERED: ASPIRIN E.C. 81 MG (ECOTRIN) TAB PO SCH (09:00)
--- NOTE | 2021-01-18 12:28 | Physician Query-Final Dx ---
ADIA TORRES 01/18/21 1228: Final Diagnosis Give Final Diagnosis Please give Final Diagnosis ALETHEA ALEGRE MD 01/21/21 1642: Final Diagnosis Give Final Diagnosis hypertensive emergency ADIA TORRES Jan 18, 2021 12:28 ALETHEA ALEGRE MD Jan 21, 2021 16:42
== END 2021-01-12 14:02 | disposition home health service (06) ==
LOC: EDUNIT# 22:47 → ER 22:50 → 4TH 22:51 → UNDOADMOB 01-12 00:15 → 4TH 01-12 00:15 → UNDODISOB 01-12 14:20
PROVIDERS: ADMIT Family Medicine; ATTEND Family Medicine
DX: I16.1 Hypertensive emergency (principal); I16.0 Hypertensive urgency; I25.110 Atherosclerotic heart disease of native coronary artery with unstable angina pectoris; E11.22 Type 2 diabetes mellitus with diabetic chronic kidney disease; E11.40 Type 2 diabetes mellitus with diabetic neuropathy, unspecified; I12.9 Hypertensive chronic kidney disease with stage 1 through stage 4 chronic kidney disease, or unspecified chronic kidney disease; E78.2 Mixed hyperlipidemia; N18.4 Chronic kidney disease, stage 4 (severe); I24.9 Acute ischemic heart disease, unspecified; K21.9 Gastro-esophageal reflux disease without esophagitis; D63.1 Anemia in chronic kidney disease; Z95.5 Presence of coronary angioplasty implant and graft; Z79.899 Other long term (current) drug therapy; Z79.82 Long term (current) use of aspirin; Z79.84 Long term (current) use of oral hypoglycemic drugs; Z87.891 Personal history of nicotine dependence; Z85.46 Personal history of malignant neoplasm of prostate
CPT/HCPCS: 36415; 71045; 80048; 80053; 80061; 83735; 83874; 83880; 84484; 85025; 85027; 85379; 85610; 85730; 93005; 93041; G0378

== ENCOUNTER → 2021-02-26 | Outpatient (CLI) | payer MEDICARE, MEDICAID ==
[~2021-02-26] MED LIST changes: +NITR0.4T42 SL; +ROSU20TA32 PO
[2021-02-26 13:34] LABS: BASOPHILS % (AUTO) 0 % (0-10); EOSINOPHILS # (AUTO) 0.2 10^3/uL (0.0-0.3); EOSINOPHILS % (AUTO) 3 % (0-10); HEMATOCRIT 25 % (40-54); HEMOGLOBIN 8.4 g/dL (13.3-17.7); LYMPHOCYTES # (AUTO) 1.3 10^3/uL (1.0-4.0); LYMPHOCYTES % (AUTO) 24 % (12-44); MEAN CORPUSCULAR HEMOGLOBIN 31 pg (25-34); MEAN CORPUSCULAR HGB CONC 34 g/dL (32-36); MEAN CORPUSCULAR VOLUME 92 fL (80-99); MEAN PLATELET VOLUME 10.1 fL (9.0-12.2); MONOCYTES # (AUTO) 0.5 10^3/uL (0.0-1.0); MONOCYTES % (AUTO) 9 % (0-12); NEUTROPHILS # (AUTO) 3.4 10^3/uL (1.8-7.8); NEUTROPHILS % (AUTO) 63 % (42-75); PLATELET COUNT 149 10^3/uL (130-400); WHITE BLOOD COUNT 5.4 10^3/uL (4.3-11.0)
[2021-02-26 13:54] LABS: ALBUMIN 3.5 GM/DL (3.2-4.5); CALCIUM 8.5 MG/DL (8.5-10.1); CREATININE SERUM 3.68 MG/DL (0.60-1.30); PHOSPHORUS 4.1 MG/DL (2.3-4.7); URIC ACID 6.1 MG/DL (2.6-7.2)
== END ==
LOC: LAB 12:57
DX: I12.9 Hypertensive chronic kidney disease with stage 1 through stage 4 chronic kidney disease, or unspecified chronic kidney disease (principal); N18.4 Chronic kidney disease, stage 4 (severe); E21.2 Other hyperparathyroidism; N25.89 Other disorders resulting from impaired renal tubular function
CPT/HCPCS: 36415; 80069; 82306; 82570; 83970; 84156; 84550; 85025

== ENCOUNTER → 2021-06-05 | Outpatient (CLI) | payer MEDICARE, MEDICAID ==
[~2021-06-05] MED LIST changes: -LISI-729 PO; +LISI5TAB20 PO; +MONT-40 PO; -MONT10TA32 PO
[2021-06-05 14:55] LABS: BASOPHILS % (AUTO) 1 % (0-10); EOSINOPHILS # (AUTO) 0.1 10^3/uL (0.0-0.3); EOSINOPHILS % (AUTO) 2 % (0-10); HEMATOCRIT 29 % (40-54); HEMOGLOBIN 9.3 g/dL (13.3-17.7); LYMPHOCYTES # (AUTO) 1.4 10^3/uL (1.0-4.0); LYMPHOCYTES % (AUTO) 25 % (12-44); MEAN CORPUSCULAR HEMOGLOBIN 30 pg (25-34); MEAN CORPUSCULAR HGB CONC 33 g/dL (32-36); MEAN CORPUSCULAR VOLUME 93 fL (80-99); MEAN PLATELET VOLUME 9.4 fL (9.0-12.2); MONOCYTES # (AUTO) 0.5 10^3/uL (0.0-1.0); MONOCYTES % (AUTO) 9 % (0-12); NEUTROPHILS # (AUTO) 3.5 10^3/uL (1.8-7.8); NEUTROPHILS % (AUTO) 63 % (42-75); PLATELET COUNT 172 10^3/uL (130-400); WHITE BLOOD COUNT 5.5 10^3/uL (4.3-11.0)
[2021-06-05 15:19] LABS: ALBUMIN 3.8 GM/DL (3.2-4.5); POTASSIUM 4.8 MMOL/L (3.6-5.0)
[2021-06-05 15:21] LABS: CALCIUM 8.5 MG/DL (8.5-10.1)
[2021-06-05 15:25] LABS: CREATININE SERUM 3.25 MG/DL (0.60-1.30); PHOSPHORUS 4.1 MG/DL (2.3-4.7)
[2021-06-05 15:28] LABS: URIC ACID 5.9 MG/DL (2.6-7.2)
== END ==
LOC: LAB 14:23
PROVIDERS: ATTEND Internal Medicine Nephrology
DX: I12.9 Hypertensive chronic kidney disease with stage 1 through stage 4 chronic kidney disease, or unspecified chronic kidney disease (principal); N18.4 Chronic kidney disease, stage 4 (severe); N25.89 Other disorders resulting from impaired renal tubular function; E21.2 Other hyperparathyroidism
CPT/HCPCS: 36415; 80069; 82306; 82570; 83970; 84156; 84550; 85025

== ENCOUNTER 2021-06-15 17:24 | Emergency (ER) | payer MEDICARE, MEDICAID ==
[~2021-06-15] VITALS: Ht 177.8 cm; Wt 72.6 kg
[2021-06-15 17:34] VITALS: BP 151/71
--- NOTE | 2021-06-15 17:59 | ED Lower Extremity ---
General Chief Complaint: Foreign Body Stated Complaint: FB IN THROAT Nursing Triage Note: PT AMB TO [facility] 4 WITH COMPLAINT OF PEAR IN THROAT. Source: patient Exam Limitations: no limitations History of Present Illness Date Seen by Provider: Jun 15, 2021 Time Seen by Provider: 17:54 Initial Comments To ER with a report that he swallowed a chunk of hair and choked on it at home. He was unable to breathe for a few minutes. He then coughed it up but feels like it is still stuck in his throat but was unable to swallow. Onset: just prior to arrival Severity: moderate Allergies and Home Medications Allergies Coded Allergies: No Known Drug Allergies (Unverified , 11/10/09) Patient Home Medication List Home Medication List Reviewed: Yes Amlodipine Besylate (Amlodipine Besylate) 10 Mg Tablet, 10 MG PO DAILY Prescribed by: VARUN SLADE on 11/02/202211 Aspirin (Aspirin EC) 81 Mg Tablet.dr, 81 MG PO DAILY Prescribed by: JIM ROCHA JR, MD on 01/12/21 1346 Carvedilol (Carvedilol) 12.5 Mg Tablet, 12.5 MG PO BID Prescribed by: JIM ROCHA JR, MD on 01/12/21 1346 Ferrous Sulfate (Ferrous Sulfate) 325 Mg Tablet, 325 MG PO DAILY, (Reported) Entered as Reported by: MIKE CHERY on 07/04/20 0937 Latanoprost (Xalatan) 2.5 Ml Drops, 1 DROP OU HS, (Reported) Entered as Reported by: MIKE CHERY on 07/04/20 0937 Lutein (Lutein) 20 Mg Tablet, 20 MG PO DAILY, (Reported) Entered as Reported by: MIKE CHERY on 07/04/20 0937 Multivitamin (Multivitamins) 1 Each Tablet, 1 TAB PO DAILY, (Reported) Entered as Reported by: JIM GIBBS on 09/26/15 0835 Nitroglycerin (Nitroglycerin) 0.4 Mg Tab.subl, 0.4 MG SL NEEDED PRN for CHEST PAIN (ANGINA) Prescribed by: JIM ROCHA JR, MD on 01/12/21 1346 [place]-3/Dha/Epa/Fish Oil (Fish Oil 1,000 mg Softgel) 1 Each Capsule, 1,000 MG PO DAILY, (Reported) Entered as Reported by: JIM GIBBS on 09/26/15 0835 Rosuvastatin Calcium (Rosuvastatin Calcium) 20 Mg Tablet, 20 MG PO HS Prescribed by: JIM ROCHA JR, MD on 01/12/21 1346 Sitagliptin Phosphate (Januvia) 25 Mg Tablet, 25 MG PO DAILY, (Reported) Entered as Reported by: MIKE CHERY on 07/04/20 09 Sodium Bicarbonate (Sodium Bicarbonate) 325 Mg Tablet, 650 MG PO DAILY, (Reported) Entered as Reported by: MIKE CHERY on 07/04/20936 Ticagrelor (Brilinta) 60 Mg Tablet, 60 MG PO BID, (Reported) Entered as Reported by: MIKE CHERY on 07/04/20 09 Vitamin A Palmitate (Vitamin A) 10,000 Unit Capsule, 10,000 UNIT PO DAILY, (Reported) Entered as Reported by: MIKE CHERY on 07/04/20936 Vitamin B Complex (Vitamin B Complex) 1 Each Tablet, 1 EACH PO DAILY, (Reported) Entered as Reported by: MIKE CHERY on 07/04/20936 Zinc (Zinc) 50 Mg Tablet, 50 MG PO DAILY, (Reported) Entered as Reported by: MIKE CHERY on 07/04/20936 Review of Systems Constitutional: see HPI EENTM: see HPI Respiratory: no symptoms reported Cardiovascular: no symptoms reported Genitourinary: no symptoms reported Musculoskeletal: no symptoms reported Skin: no symptoms reported Psychiatric/Neurological: No Symptoms Reported Past Otznnsl-Qrwzoj-Xhftzq Hx Patient Social History Tobacco Use?: No Use of E-Cig and/or Vaping dev: No Substance use?: No Alcohol Use?: No Pt feels they are or have been: No Immunizations Up To Date Tetanus Booster (TDap): More than 5yrs Influenza Vaccine Up-to-Date: Yes; Up-to-Date First/Initial COVID19 Vaccinat: 2020 Second COVID19 Vaccination Conrado: 2020 Third COVID19 Vaccination Date: 2020 Seasonal Allergies Seasonal Allergies: No Past Medical History Surgery/Hospitalization HX: NIDDM. [place] X2. STENTS. KIDNEY FAILURE Surgeries: Yes Abdominal, Appendectomy, Coronary Stent Respiratory: No Cardiac: Yes Coronary Artery Disease, Hypertension Neurological: No Neuropathy Reproductive Disorders: No Genitourinary: Yes Renal Failure Gastrointestinal: Yes Gastroesophageal Reflux Musculoskeletal: No Endocrine: Yes Diabetes, Non-Insulin dep HEENT: No Cancer: Yes Prostate Did You Recieve Any Treatments: Yes What Type of Treatment Did You: Radiation Psychosocial: No Integumentary: No Blood Disorders: No Family Medical History Bone cancer G8 BROTHER Diabetes mellitus 19 MOTHER Heart Disease, Cancer, CAD Over 55 Years Old, Diabetes 57yo sister "in her sleep" Physical Exam Vital Signs Vital Signs - First Documented 06/15/21 17:34 Pulse 58 Resp 18 B/P (MAP) 151/71 (97) Pulse Ox 100 O2 Delivery Room Air Capillary Refill : Less Than 3 Seconds Height, Weight, BMI Height: 5'10.00" Weight: 172lbs. 5.0oz. 78.416321dp; 22.00 BMI Method:Stated General Appearance: WD/WN, no apparent distress, other (Distress clear lungs no stridor swallows his own secretions oxygen saturation 100% on room air. He was given a glass of water which he had some difficulty with during the first 2 or 3 swallows. He then felt as if the foreign body passed and he was able to swallow with ease.) HEENT: PERRL/EOMI, normal ENT inspection Respiratory: no respiratory distress, no accessory muscle use Gastrointestinal: normal bowel sounds, non tender Hips: bilateral hip non-tender, bilateral hip normal inspection, bilateral hip normal range of motion Legs: bilateral leg non-tender, bilateral leg normal inspection, bilateral leg normal range of motion Knees: bilateral knee non-tender, bilateral knee normal inspection, bilateral knee normal range of motion Ankles: bilateral ankle non-tender, bilateral ankle normal inspection, bilateral ankle normal range of motion Neurologic/Psychiatric: alert, normal mood/affect, oriented x 3 Skin: normal color, warm/dry Progress/Results/Core Measures Results/Orders Vital Signs/I&O 06/15/21 17:34 Pulse 58 Resp 18 B/P (MAP) 151/71 (97) Pulse Ox 100 O2 Delivery Room Air Blood Pressure Mean: 97 Departure Impression Primary Impression: Foreign body in esophagus Disposition: 01 HOME, SELF-CARE Condition: Stable Departure-Patient Inst. Decision time for Depature: 17:58 Referrals: ALEJANDRO HAM MD (PCP/Family) Primary Care Physician Patient Instructions: Swallowed Objects, Adult ED Add. Discharge Instructions: . Soft diet such as mashed potatoes, pudding, Jell-O for the next 24 hours. Follow-up with your doctor next week. Return to ER for any worsening or recurrent symptoms. All discharge instructions reviewed with patient and/or family. Voiced understanding. JAIME LAU APRN Jun 15, 2021 17:59
== END 2021-06-15 18:05 | disposition home or self-care (01) ==
LOC: EDUNIT# 17:24 → ER 17:26
DX: T18.108A Unspecified foreign body in esophagus causing other injury, initial encounter (principal)
CPT/HCPCS: 99281

== ENCOUNTER → 2021-06-20 | Outpatient (CLI) | payer MEDICARE, MEDICAID ==
[2021-06-20 13:56] LABS: ALBUMIN 3.7 GM/DL (3.2-4.5); CALCIUM 8.5 MG/DL (8.5-10.1); CREATININE SERUM 3.18 MG/DL (0.60-1.30); PHOSPHORUS 4.7 MG/DL (2.3-4.7); POTASSIUM 4.2 MMOL/L (3.6-5.0)
== END ==
LOC: LAB
PROVIDERS: ATTEND Internal Medicine Nephrology
DX: N18.4 Chronic kidney disease, stage 4 (severe) (principal)
CPT/HCPCS: 36415; 80069

== ENCOUNTER → 2021-09-02 | Outpatient (CLI) | payer MEDICARE, MEDICAID ==
[~2021-09-02] VITALS: Ht 177 cm; Wt 75.0 kg
[~2021-09-02] MED LIST changes: +REGADENOSON 0.4 MG/5 ML SYR (LEXISCAN) IV ONE
[2021-09-02] MEDS: CATHETER FLUSH 10 ML SYR IVP PRN ×2 (07:53→09:47)
[2021-09-02 09:45] VITALS: BP 158/77
--- NOTE | 2021-09-02 16:25 | Cardiology Stress Test Report ---
Stress Test Report Date of Procedure/Referring: Date of Procedure: September 02, 2021 PCP Kelly Dsouza MD Admitting Physician Bry Jin MD Indications: CP Baseline Blood Pressure: Blood Pressure Systolic: 158 Blood Pressure Diastolic: 77 Baseline Vitals Vital Signs Date Time Temp Pulse Resp B/P (MAP) Pulse Ox O2 Delivery O2 Flow Rate FiO2 09/02/21 09:45 62 16 158/77 (104) 97 Room Air Baseline EKG: Baseline EKG: NSR Summary After explaining the procedure to the patient, he signed a consent and then brought to the stress nuclear laboratory. Patient received 0.4 mg Lexiscan for stress test, ECG, heart rate and blood pressure were monitored continuously. Resting and stress dose of radio tracer were injected, imaging was acquired and reviewed in short axis, horizontal long axis and vertical long axis views. TID: 1.05 SSS: 8 SDS: 1 EF: 68 1. Patient tolerated Lexiscan well 2. Diaphragmatic attenuation with fixed defect involving the inferior wall and inferolateral wall, no significant ischemia was identified. Probably secondary to the diaphragmatic attenuation 3. Normal left ventricular size with normal contractility, inferior wall contracted normally, ejection fraction 68% KELLY DSOUZA MD September 02, 2021 16:25
== END ==
LOC: CARD 08:00
PROVIDERS: ATTEND Internal Medicine Cardiovascular Disease
DX: I10 Essential (primary) hypertension (principal); I25.10 Atherosclerotic heart disease of native coronary artery without angina pectoris
CPT/HCPCS: 78452; 93017; A9502

== ENCOUNTER → 2021-09-30 | Outpatient (CLI) | payer MEDICARE, MEDICAID ==
[~2021-09-30] MED LIST changes: -REGADENOSON 0.4 MG/5 ML SYR (LEXISCAN) IV ONE
[2021-09-30 09:05] LABS: BASOPHILS % (AUTO) 1 % (0-10); EOSINOPHILS # (AUTO) 0.1 10^3/uL (0.0-0.3); EOSINOPHILS % (AUTO) 2 % (0-10); HEMATOCRIT 28 % (40-54); HEMOGLOBIN 9.1 g/dL (13.3-17.7); LYMPHOCYTES % (AUTO) 22 % (12-44); MEAN CORPUSCULAR HEMOGLOBIN 30 pg (25-34); MEAN CORPUSCULAR HGB CONC 33 g/dL (32-36); MEAN CORPUSCULAR VOLUME 91 fL (80-99); MEAN PLATELET VOLUME 9.4 fL (9.0-12.2); MONOCYTES # (AUTO) 0.3 10^3/uL (0.0-1.0); MONOCYTES % (AUTO) 7 % (0-12); NEUTROPHILS # (AUTO) 3.2 10^3/uL (1.8-7.8); NEUTROPHILS % (AUTO) 68 % (42-75); PLATELET COUNT 147 10^3/uL (130-400); WHITE BLOOD COUNT 4.7 10^3/uL (4.3-11.0)
[2021-09-30 09:29] LABS: ALBUMIN 3.6 GM/DL (3.2-4.5); CALCIUM 8.8 MG/DL (8.5-10.1); CREATININE SERUM 3.84 MG/DL (0.60-1.30); PHOSPHORUS 4.4 MG/DL (2.3-4.7); POTASSIUM 4.3 MMOL/L (3.6-5.0); URIC ACID 6.2 MG/DL (2.6-7.2)
== END ==
LOC: LAB 08:44
PROVIDERS: ATTEND Internal Medicine Nephrology
DX: I12.9 Hypertensive chronic kidney disease with stage 1 through stage 4 chronic kidney disease, or unspecified chronic kidney disease (principal); N18.4 Chronic kidney disease, stage 4 (severe); E21.2 Other hyperparathyroidism; N25.89 Other disorders resulting from impaired renal tubular function
CPT/HCPCS: 36415; 80069; 82306; 82570; 83970; 84156; 84550; 85025

== ENCOUNTER → 2021-10-17 | Outpatient (CLI) | payer MEDICARE, MEDICAID ==
[2021-10-17 09:27] LABS: ALBUMIN 3.8 GM/DL (3.2-4.5); CALCIUM 8.6 MG/DL (8.5-10.1); CREATININE SERUM 3.26 MG/DL (0.60-1.30); PHOSPHORUS 3.9 MG/DL (2.3-4.7); POTASSIUM 4.1 MMOL/L (3.6-5.0)
== END ==
LOC: LAB 08:40
PROVIDERS: ATTEND Internal Medicine Nephrology
DX: N18.4 Chronic kidney disease, stage 4 (severe) (principal); E21.2 Other hyperparathyroidism; N25.89 Other disorders resulting from impaired renal tubular function
CPT/HCPCS: 36415; 80069

== ENCOUNTER → 2022-01-28 | Outpatient (CLI) | payer MEDICARE, MEDICAID ==
[2022-01-28 10:24] LABS: ALBUMIN 3.6 GM/DL (3.2-4.5); BILIRUBIN,TOTAL 0.7 MG/DL (0.1-1.0); CALCIUM 8.6 MG/DL (8.5-10.1); CREATININE SERUM 2.34 MG/DL (0.60-1.30); TOTAL PROTEIN 6.3 GM/DL (6.4-8.2)
== END ==
LOC: LAB 09:01
PROVIDERS: ATTEND Family Medicine
DX: I25.10 Atherosclerotic heart disease of native coronary artery without angina pectoris (principal); I10 Essential (primary) hypertension; I34.0 Nonrheumatic mitral (valve) insufficiency; I07.1 Rheumatic tricuspid insufficiency; E78.2 Mixed hyperlipidemia; I65.23 Occlusion and stenosis of bilateral carotid arteries
CPT/HCPCS: 36415; 80053; 80061

== ENCOUNTER 2022-06-04 08:21 | Outpatient (RCR) | payer MEDICARE, MEDICAID | END 2022-06-17 | disposition home or self-care (01) | LOC: ONC 08:21 | PROVIDERS: ATTEND Radiology Radiation Oncology | DX: Z12.5 Encounter for screening for malignant neoplasm of prostate (principal); I25.10 Atherosclerotic heart disease of native coronary artery without angina pectoris; I10 Essential (primary) hypertension; I08.1 Rheumatic disorders of both mitral and tricuspid valves; E78.2 Mixed hyperlipidemia; I21.9 Acute myocardial infarction, unspecified | CPT/HCPCS: 36415; 84153 ==

== ENCOUNTER → 2022-09-08 | Outpatient (CLI) | payer MEDICARE, MEDICAID | LOC: CARD 09:15 | PROVIDERS: ATTEND Internal Medicine Cardiovascular Disease | DX: I34.0 Nonrheumatic mitral (valve) insufficiency (principal); I11.9 Hypertensive heart disease without heart failure | CPT/HCPCS: 93306 ==

== ENCOUNTER 2022-11-26 10:17 | Outpatient (RCR) | payer MEDICARE, MEDICAID ==
[~2022-11-26 10:17] MED LIST changes: -ROSU20TA32 PO; +ROSU20TA73 PO
== END 2022-12-18 | disposition home or self-care (01) ==
LOC: ONC 10:17
PROVIDERS: ATTEND Radiology Radiation Oncology
DX: C61 Malignant neoplasm of prostate (principal); I25.10 Atherosclerotic heart disease of native coronary artery without angina pectoris; I10 Essential (primary) hypertension; I08.1 Rheumatic disorders of both mitral and tricuspid valves; E78.2 Mixed hyperlipidemia; I21.9 Acute myocardial infarction, unspecified; E11.9 Type 2 diabetes mellitus without complications
CPT/HCPCS: 36415; 84153

== ENCOUNTER 2023-03-18 11:33 | Emergency (ER) | payer MEDICARE, MEDICAID ==
[~2023-03-18] VITALS: Ht 175.2 cm; Wt 75.0 kg
[2023-03-18 12:43] LABS: POTASSIUM 4.2 MMOL/L (3.6-5.0)
[2023-03-18 12:45] LABS: CALCIUM 8.3 MG/DL (8.5-10.1)
[2023-03-18 12:49] LABS: CREATININE SERUM 2.46 MG/DL (0.60-1.30)
--- NOTE | 2023-03-18 12:50 | ED General ---
General Chief Complaint: Chest Pain Stated Complaint: TOOK MAGNESIUM | FEELING WOOZY Nursing Triage Note: STATES HE TAKES MAGNESIUM AT HOME AND HE THINKS IT MAYBE CAUSING HIM TO HAVE KIDNEY FAILURE AND HE FEELS LIKE HE IS TOO TIRED. Source of Information: Patient, Old Records Exam Limitations: No Limitations History of Present Illness Date Seen by Provider: Mar 18, 2023 Time Seen by Provider: 11:39 Initial Comments This 77 year old gentleman presents to the ER with concerns about possibly triggering kidney damage and hypertension by taking 2 tablets of over-the- counter magnesium. He has CKD for which he sees Dr. Venegas. Since taking the magnesium he has noted feeling fatigued with lower back discomfort and HTN with SBP in the 150s. PCP is Dr. Coley. Pulmonology Physician is Dr. Dsouza. Allergies and Home Medications Allergies Coded Allergies: No Known Drug Allergies (Unverified , 11/10/09) Patient Home Medication List Home Medication List Reviewed: Yes Amlodipine Besylate (Amlodipine Besylate) 10 Mg Tablet, 10 MG PO DAILY Prescribed by: VARUN SLADE on 11/02/202211 Aspirin (Aspirin EC) 81 Mg Tablet.dr, 81 MG PO DAILY Prescribed by: JIM ROCHA JR, MD on 01/12/21 1346 Carvedilol (Carvedilol) 12.5 Mg Tablet, 12.5 MG PO BID Prescribed by: JIM ROCHA JR, MD on 01/12/21 1346 Ferrous Sulfate (Ferrous Sulfate) 325 Mg Tablet, 325 MG PO DAILY, (Reported) Entered as Reported by: MIKE CHERY on 07/04/20 0937 Latanoprost (Xalatan) 2.5 Ml Drops, 1 DROP OU HS, (Reported) Entered as Reported by: MIEK CHERY on 07/04/20 0937 Lutein (Lutein) 20 Mg Tablet, 20 MG PO DAILY, (Reported) Entered as Reported by: MIKE CHERY on 07/04/20 0937 Multivitamin (Multivitamins) 1 Each Tablet, 1 TAB PO DAILY, (Reported) Entered as Reported by: JIM GIBBS on 09/26/15 0835 Nitroglycerin (Nitroglycerin) 0.4 Mg Tab.subl, 0.4 MG SL NEEDED PRN for CHEST PAIN (ANGINA) Prescribed by: JIM ROCHA JR, MD on 01/12/21 1346 [place]-3/Dha/Epa/Fish Oil (Fish Oil 1,000 mg Softgel) 1 Each Capsule, 1,000 MG PO DAILY, (Reported) Entered as Reported by: JIM GIBBS on 09/26/15 0835 Rosuvastatin Calcium (Rosuvastatin Calcium) 20 Mg Tablet, 20 MG PO HS Prescribed by: JIM ROCHA JR, MD on 01/12/21 1346 Sitagliptin Phosphate (Januvia) 25 Mg Tablet, 25 MG PO DAILY, (Reported) Entered as Reported by: MIKE CHERY on 07/04/20 09 Sodium Bicarbonate (Sodium Bicarbonate) 325 Mg Tablet, 650 MG PO DAILY, (Reported) Entered as Reported by: MIKE CHERY on 07/04/20 09 Ticagrelor (Brilinta) 60 Mg Tablet, 60 MG PO BID, (Reported) Entered as Reported by: MIKE CHERY on 07/04/20 09 Vitamin A Palmitate (Vitamin A) 10,000 Unit Capsule, 10,000 UNIT PO DAILY, (Reported) Entered as Reported by: MIKE CHERY on 07/04/20 09 Vitamin B Complex (Vitamin B Complex) 1 Each Tablet, 1 EACH PO DAILY, (Reported) Entered as Reported by: MIKE CHERY on 07/04/20936 Zinc (Zinc) 50 Mg Tablet, 50 MG PO DAILY, (Reported) Entered as Reported by: MIKE CHERY on 07/04/20 09 Review of Systems Review of Systems Constitutional: see HPI EENTM: no symptoms reported Respiratory: no symptoms reported Cardiovascular: see HPI Gastrointestinal: no symptoms reported Genitourinary: see HPI Musculoskeletal: see HPI Skin: no symptoms reported Psychiatric/Neurological: No Symptoms Reported Hematologic/Lymphatic: No Symptoms Reported Immunological/Allergic: no symptoms reported Past Wbecmwh-Oiictl-Tbxvuc Hx Patient Social History Tobacco Use?: No Use of E-Cig and/or Vaping dev: No Substance use?: No Alcohol Use?: No Pt feels they are or have been: No Immunizations Up To Date Tetanus Booster (TDap): More than 5yrs Influenza Vaccine Up-to-Date: No; Not Current First/Initial COVID19 Vaccinat: 5 SHOTS Second COVID19 Vaccination Conrado: 2020 Third COVID19 Vaccination Date: 2020 Seasonal Allergies Seasonal Allergies: No Past Medical History Surgery/Hospitalization HX: NIDDM. [place] X2. STENTS. KIDNEY FAILURE Surgeries: Yes Abdominal, Appendectomy, Coronary Stent Respiratory: No Cardiac: Yes Coronary Artery Disease, Heart Attack, Hypertension Neurological: Yes Neuropathy Reproductive Disorders: No Genitourinary: Yes Renal Failure (CKD) Gastrointestinal: Yes Gastroesophageal Reflux Musculoskeletal: No Endocrine: Yes Diabetes, Non-Insulin dep HEENT: No Cancer: Yes Prostate Did You Recieve Any Treatments: Yes What Type of Treatment Did You: Radiation Psychosocial: No Integumentary: No Blood Disorders: No Family Medical History Bone cancer G8 BROTHER Diabetes mellitus 19 MOTHER Heart Disease, Cancer, CAD Over 55 Years Old, Diabetes 57yo sister "in her sleep" Physical Exam Vital Signs Vital Signs - First Documented 03/18/23 12:09 Temp 36.9 Pulse 58 Resp 18 B/P (MAP) 155/79 (104) Pulse Ox 100 O2 Delivery Room Air Capillary Refill : Less Than 3 Seconds Height, Weight, BMI Height: 5'10.00" Weight: 172lbs. 5.0oz. [id number]; 24.00 BMI Method:Stated General Appearance: No Apparent Distress, WD/WN HEENT: PERRL/EOMI, Normal ENT Inspection Neck: Normal Inspection; No JVD Respiratory: Lungs Clear, Normal Breath Sounds, No Accessory Muscle Use Cardiovascular: Regular Rate, Rhythm, No Edema, No Murmur Gastrointestinal: Non Tender, Soft Extremity: Normal Inspection Neurologic/Psychiatric: Alert, Oriented x3, No Motor/Sensory Deficits, Normal Mood/Affect Skin: Normal Color, Warm/Dry Progress/Results/Core Measures Suspected Sepsis SIRS Temperature: Pulse: 58 Respiratory Rate: 18 Laboratory Tests 03/18/23 12:24: White Blood Count 5.3 Blood Pressure 155 /79 Mean: 104 Laboratory Tests 03/18/23 12:24: Creatinine 2.46H, Platelet Count 162 Results/Orders Lab Results Laboratory Tests Test 03/18/23 12:24 Range/Units White Blood Count 5.3 4.3-11.0 10^3/uL Red Blood Count 3.40 L 4.30-5.52 10^6/uL Hemoglobin 10.3 L 13.3-17.7 g/dL Hematocrit 29 L 40-54 % Mean Corpuscular Volume 86 80-99 fL Mean Corpuscular Hemoglobin 30 25-34 pg Mean Corpuscular Hemoglobin Concent 35 32-36 g/dL Red Cell Distribution Width 11.4 10.0-14.5 % Platelet Count 162 130-400 10^3/uL Mean Platelet Volume 9.7 9.0-12.2 fL Immature Granulocyte % (Auto) 0 % Neutrophils (%) (Auto) 69 42-75 % Lymphocytes (%) (Auto) 23 12-44 % Monocytes (%) (Auto) 7 0-12 % Eosinophils (%) (Auto) 1 0-10 % Basophils (%) (Auto) 1 0-10 % Neutrophils # (Auto) 3.7 1.8-7.8 10^3/uL Lymphocytes # (Auto) 1.2 1.0-4.0 10^3/uL Monocytes # (Auto) 0.4 0.0-1.0 10^3/uL Eosinophils # (Auto) 0.1 0.0-0.3 10^3/uL Basophils # (Auto) 0.0 0.0-0.1 10^3/uL Immature Granulocyte # (Auto) 0.0 0.0-0.1 10^3/uL Sodium Level 121 *L 135-145 MMOL/L Potassium Level 4.2 3.6-5.0 MMOL/L Chloride Level 93 L 98-107 MMOL/L Carbon Dioxide Level 20 L 21-32 MMOL/L Anion Gap 8 5-14 MMOL/L Blood Urea Nitrogen 22 H 7-18 MG/DL Creatinine 2.46 H 0.60-1.30 MG/DL Estimat Glomerular Filtration Rate 27 BUN/Creatinine Ratio 9 Glucose Level 96 70-105 MG/DL Calcium Level 8.3 L 8.5-10.1 MG/DL Magnesium Level 2.3 1.6-2.4 MG/DL My Orders Orders - LUCY CLARKE MD Basic Metabolic Panel (03/18/23 11:39) Magnesium (03/18/23 11:39) Ed Iv/Invasive Line Start (03/18/23 11:39) Cbc And Automated Diff (03/18/23 12:51) Ns Iv 500 Ml (Ns Iv 500 Ml) (03/18/23 13:00) Ekg Tracing (03/18/23 12:20) Medications Given in ED Vital Signs/I&O 03/18/23 03/18/23 12:09 14:32 Temp 36.9 Pulse 58 62 Resp 18 18 B/P (MAP) 155/79 (104) 153/81 Pulse Ox 100 98 O2 Delivery Room Air Capillary Refill : Less Than 3 Seconds Blood Pressure Mean: 104 Progress Note #1: Time: 12:48 Progress Note I began work on this patient's case at 1139 when I received report from registration and was able to place orders. I was able to interview and examine the patient at 1239. There was a delay in rooming this patient and physical exam due to volume in the ER. Progress Note #2: Progress Note Labs were obtained, reviewed and interpreted by me. CBC was notable for mild anemia with hgb of 10.3. BMP was significant for hyponatremia with sodium of 121. BUN was 22 and creatinine was 2.46. These values are historically consistent with his baseline CKD. CO2 was 20. Calcium was 8.3. Magnesium was normal at 2.3. Patient was hydrated with 1 L NS. He was advised to lightly salt his food. He was previously avoiding salt and drinking water in large quantities to avoid HTN. Close follow-up was recommended. ECG was unremarkable as noted in my interpretation below. ECG Initial ECG Impression Date: Mar 18, 2023 Initial ECG Impression Time: 12:20 Initial ECG Rate: 58 Initial ECG Rhythm: S.Lam Initial ECG Impression: Normal Comment Borderline sinus bradycardia with no ST elevation or depression. No abnormal intervals or axis deviation. Departure Impression Primary Impression: Hyponatremia Disposition: 01 HOME, SELF-CARE Condition: Improved Admissions Decision to Admit Reason: Admit from ER (General) Departure-Patient Inst. Decision time for Depature: 14:07 Referrals: DAMION COLEY MD (PCP/Family) Primary Care Physician Patient Instructions: Hyponatremia (DC) Add. Discharge Instructions: Your sodium is low today which likely explains your symptoms. You can help correct your sodium by lightly salting your food. Because your sodium is already low, lightly salting her food should not significantly impact your blood pressure. You should have your sodium checked again with in the next week or so. Please contact Dr. Venegas and/or Dr. Coley to have labs repeated. Return to care if you have worsening symptoms despite following these instructions. You may continue taking your medications as previously directed. You do not need to take any supplemental magnesium unless otherwise instructed by your doctors. All discharge instructions reviewed with patient and/or family. Voiced understanding. Copy Copies To 1: DAMION COLEY MD Copies To 2: KELLY DSOUZA MD, JOSHUA T MD Mar 18, 2023 12:50
[2023-03-18 12:51] LABS: MAGNESIUM 2.3 MG/DL (1.6-2.4)
[2023-03-18] MEDS ORDERED: NS IV 500 ML 500 ML IV ONE (13:00)
[2023-03-18 13:10] LABS: BASOPHILS % (AUTO) 1 % (0-10); EOSINOPHILS # (AUTO) 0.1 10^3/uL (0.0-0.3); EOSINOPHILS % (AUTO) 1 % (0-10); HEMATOCRIT 29 % (40-54); HEMOGLOBIN 10.3 g/dL (13.3-17.7); LYMPHOCYTES # (AUTO) 1.2 10^3/uL (1.0-4.0); LYMPHOCYTES % (AUTO) 23 % (12-44); MEAN CORPUSCULAR HEMOGLOBIN 30 pg (25-34); MEAN CORPUSCULAR HGB CONC 35 g/dL (32-36); MEAN CORPUSCULAR VOLUME 86 fL (80-99); MEAN PLATELET VOLUME 9.7 fL (9.0-12.2); MONOCYTES # (AUTO) 0.4 10^3/uL (0.0-1.0); MONOCYTES % (AUTO) 7 % (0-12); NEUTROPHILS # (AUTO) 3.7 10^3/uL (1.8-7.8); NEUTROPHILS % (AUTO) 69 % (42-75); PLATELET COUNT 162 10^3/uL (130-400); WHITE BLOOD COUNT 5.3 10^3/uL (4.3-11.0)
[2023-03-18 14:32] VITALS: BP 153/81
== END 2023-03-18 14:32 | disposition home or self-care (01) ==
LOC: EDUNIT# 11:33 → ER 11:37
DX: E87.1 Hypo-osmolality and hyponatremia (principal)
CPT/HCPCS: 36415; 80048; 83735; 85025; 93005

== ENCOUNTER → 2023-03-20 | Outpatient (CLI) | payer MEDICARE, MEDICAID ==
[2023-03-20 17:13] LABS: ALBUMIN 3.6 GM/DL (3.2-4.5)
[2023-03-20 17:15] LABS: CALCIUM 8.1 MG/DL (8.5-10.1)
[2023-03-20 17:19] LABS: PHOSPHORUS 2.8 MG/DL (2.3-4.7)
[2023-03-20 17:20] LABS: CREATININE SERUM 2.27 MG/DL (0.60-1.30)
== END ==
LOC: LAB 16:50
PROVIDERS: ATTEND Internal Medicine Nephrology
DX: N18.4 Chronic kidney disease, stage 4 (severe) (principal)
CPT/HCPCS: 36415; 80069

== ENCOUNTER 2023-03-22 16:01 | Emergency (ER) | payer MEDICARE, MEDICAID ==
[~2023-03-22] VITALS: Ht 177.8 cm; Wt 70.3 kg
[2023-03-22 16:34] LABS: POTASSIUM 4.1 MMOL/L (3.6-5.0)
[2023-03-22 16:35] LABS: CALCIUM 8.4 MG/DL (8.5-10.1)
[2023-03-22 16:40] LABS: CREATININE SERUM 2.48 MG/DL (0.60-1.30)
[2023-03-22 16:42] LABS: MAGNESIUM 2.2 MG/DL (1.6-2.4)
--- NOTE | 2023-03-22 16:43 | ED General ---
General Chief Complaint: General Problems/Pain Stated Complaint: LOW SALT LEVELS Nursing Triage Note: PT AMB TO ED BY POV WITH C/O INCONSISTENT BP. PT REPORTS HE HAS LOW SODIUM AND WAS SEEN THURSDAY FOR THE LOW SODIUM. PT REPORTS HIS PRODUCT DELIVERY SPECIALIST TOLD HIM NOT TO DRINK ANY WATER, AND HIS BP "JUMPED UP" AFTER DRINKING 16OZ WATER TODAY. PT DENIES DIZZINESS, NVD, OR ANY OTHER SX AT THIS TIME. Source of Information: Patient Exam Limitations: No Limitations History of Present Illness Date Seen by Provider: Mar 22, 2023 Time Seen by Provider: 16:25 Initial Comments This is 77-year-old man presents to the emergency room via private vehicle with concerns about fluctuations in his blood pressure. He was seen here on March 18 and was diagnosed with hyponatremia with sodium of 121. Creatinine at that time was 2.46. He has chronic kidney disease for which he sees a cash applications associate, Dr. Venegas. He had labs obtained again on March 20. Sodium was 122 at that time with a creatinine of 2.27. He reports the nephrology office instructed him to not drink any water but to have chicken broth and consume high salt foods. He is concerned that his blood pressure has now gone up. He denies any other significant change in his condition.. Allergies and Home Medications Allergies Coded Allergies: No Known Drug Allergies (Unverified , 11/10/09) Patient Home Medication List Home Medication List Reviewed: Yes Amlodipine Besylate (Amlodipine Besylate) 10 Mg Tablet, 10 MG PO DAILY Prescribed by: VARUN SLADE on 11/02/20 2212 Aspirin (Aspirin EC) 81 Mg Tablet.dr, 81 MG PO DAILY Prescribed by: JIM ROCHA JR, MD on 01/12/21 1346 Carvedilol (Carvedilol) 12.5 Mg Tablet, 12.5 MG PO BID Prescribed by: JIM ROCHA JR, MD on 01/12/21 1346 Ferrous Sulfate (Ferrous Sulfate) 325 Mg Tablet, 325 MG PO DAILY, (Reported) Entered as Reported by: MIKE CHERY on 07/04/20 0937 Latanoprost (Xalatan) 2.5 Ml Drops, 1 DROP OU HS, (Reported) Entered as Reported by: MIKE CHERY on 07/04/20 0937 Lutein (Lutein) 20 Mg Tablet, 20 MG PO DAILY, (Reported) Entered as Reported by: MIKE CHERY on 07/04/20 09 Multivitamin (Multivitamins) 1 Each Tablet, 1 TAB PO DAILY, (Reported) Entered as Reported by: JIM GIBBS on 09/26/15 0835 Nitroglycerin (Nitroglycerin) 0.4 Mg Tab.subl, 0.4 MG SL NEEDED PRN for CHEST PAIN (ANGINA) Prescribed by: JIM ROCHA JR, MD on 01/12/21 1346 [place]-3/Dha/Epa/Fish Oil (Fish Oil 1,000 mg Softgel) 1 Each Capsule, 1,000 MG PO DAILY, (Reported) Entered as Reported by: JIM GIBBS on 09/26/15 0835 Rosuvastatin Calcium (Rosuvastatin Calcium) 20 Mg Tablet, 20 MG PO HS Prescribed by: JIM ROCHA JR, MD on 01/12/21 1346 Sitagliptin Phosphate (Januvia) 25 Mg Tablet, 25 MG PO DAILY, (Reported) Entered as Reported by: MIKE CHERY on 07/04/20 09 Sodium Bicarbonate (Sodium Bicarbonate) 325 Mg Tablet, 650 MG PO DAILY, (Reported) Entered as Reported by: MIKE CHERY on 07/04/20936 Ticagrelor (Brilinta) 60 Mg Tablet, 60 MG PO BID, (Reported) Entered as Reported by: MIKE CHERY on 07/04/20936 Vitamin A Palmitate (Vitamin A) 10,000 Unit Capsule, 10,000 UNIT PO DAILY, (Reported) Entered as Reported by: MIKE CHERY on 07/04/20936 Vitamin B Complex (Vitamin B Complex) 1 Each Tablet, 1 EACH PO DAILY, (Reported) Entered as Reported by: MIKE CHERY on 07/04/20936 Zinc (Zinc) 50 Mg Tablet, 50 MG PO DAILY, (Reported) Entered as Reported by: MIKE CHERY on 07/04/20936 Review of Systems Review of Systems Constitutional: no symptoms reported EENTM: no symptoms reported Respiratory: no symptoms reported Cardiovascular: see HPI Gastrointestinal: no symptoms reported Genitourinary: see HPI Musculoskeletal: no symptoms reported Skin: no symptoms reported Psychiatric/Neurological: No Symptoms Reported Hematologic/Lymphatic: No Symptoms Reported Immunological/Allergic: no symptoms reported Past Qczcqxl-Sodyug-Gyodja Hx Patient Social History Tobacco Use?: No Use of E-Cig and/or Vaping dev: No Substance use?: No Alcohol Use?: No Pt feels they are or have been: No Immunizations Up To Date Tetanus Booster (TDap): More than 5yrs First/Initial COVID19 Vaccinat: 5 SHOTS Second COVID19 Vaccination Conrado: 5 SHOTS Third COVID19 Vaccination Date: 5 SHOTS Seasonal Allergies Seasonal Allergies: No Past Medical History Surgery/Hospitalization HX: NIDDM. [place] X2. STENTS. KIDNEY FAILURE Surgeries: Yes Abdominal, Appendectomy, Coronary Stent Respiratory: No Cardiac: Yes Coronary Artery Disease, Heart Attack, Hypertension Neurological: Yes Neuropathy Reproductive Disorders: No Genitourinary: Yes Renal Failure (Chronic kidney disease) Gastrointestinal: Yes Gastroesophageal Reflux Musculoskeletal: No Endocrine: Yes Diabetes, Non-Insulin dep HEENT: No Cancer: Yes Prostate Did You Recieve Any Treatments: Yes What Type of Treatment Did You: Radiation Psychosocial: No Integumentary: No Blood Disorders: No Family Medical History Bone cancer G8 BROTHER Diabetes mellitus 19 MOTHER Heart Disease, Cancer, CAD Over 55 Years Old, Diabetes 57yo sister "in her sleep" Physical Exam Vital Signs Capillary Refill : Less Than 3 Seconds Height, Weight, BMI Height: 5'10.00" Weight: 172lbs. 5.0oz. 78.490035uh; 22.00 BMI Method:Stated General Appearance: No Apparent Distress, WD/WN HEENT: Normal ENT Inspection Neck: Normal Inspection Respiratory: Lungs Clear, Normal Breath Sounds, No Accessory Muscle Use Cardiovascular: Regular Rate, Rhythm, No Edema, No Murmur Extremity: Normal Inspection, No Pedal Edema Neurologic/Psychiatric: Alert, Oriented x3, No Motor/Sensory Deficits, Normal Mood/Affect Skin: Normal Color, Warm/Dry Progress/Results/Core Measures Suspected Sepsis SIRS Temperature: Pulse: 63 Respiratory Rate: 14 Blood Pressure 163 /79 Mean: 107 Laboratory Tests 03/22/23 16:17: Creatinine 2.48H Results/Orders Lab Results Laboratory Tests Test 03/22/23 16:17 Range/Units Sodium Level 133 L 135-145 MMOL/L Potassium Level 4.1 3.6-5.0 MMOL/L Chloride Level 106 98-107 MMOL/L Carbon Dioxide Level 18 L 21-32 MMOL/L Anion Gap 9 5-14 MMOL/L Blood Urea Nitrogen 19 H 7-18 MG/DL Creatinine 2.48 H 0.60-1.30 MG/DL Estimat Glomerular Filtration Rate 26 BUN/Creatinine Ratio 8 Glucose Level 148 H 70-105 MG/DL Calcium Level 8.4 L 8.5-10.1 MG/DL Magnesium Level 2.2 1.6-2.4 MG/DL My Orders Orders - LUCY CLARKE MD Ed Iv/Invasive Line Start (03/22/23 16:24) Basic Metabolic Panel (03/22/23 16:24) Magnesium (03/22/23 16:24) Vital Signs/I&O Capillary Refill : Less Than 3 Seconds Blood Pressure Mean: 107 Progress Note : Progress Note After patient settled in the exam room, his blood pressure was in the 140s systolic. BMP and magnesium were obtained. Sodium improved to 133. Creatinine was stable at 2.48. Magnesium was normal at 2.2. I advised patient that he needs to drink water. He cannot completely deprive himself of water. I advised him to drink water in moderation but not to drink excessively as that may worsen hyponatremia. I advised him to continue lightly salting his food. Regarding blood pressure, he does not require any emergent changes to his medication regimen with his current blood pressure. He can discuss this further with his primary care doctor and/or cash applications associate later this week. Departure Impression Primary Impression: Hyponatremia Additional Impressions: CKD (chronic kidney disease) Qualified Codes: N18.9 - Chronic kidney disease, unspecified Hypertension Qualified Codes: I10 - Essential (primary) hypertension Disposition: 01 HOME, SELF-CARE Condition: Stable Departure-Patient Inst. Decision time for Depature: 16:52 Referrals: DAMION SHULTZ MD (PCP/Family) Primary Care Physician Patient Instructions: High blood pressure in adults, Hyponatremia Add. Discharge Instructions: Your blood pressure is elevated today but does not require emergent i nterventions. Please contact your doctor and or your cash applications associate tomorrow morning for further instructions regarding your blood pressure. Your sodium is much improved today at 133. This is improved from 121 on March 18. You may continue lightly salting your food to support your sodium level. Your kidney function is stable at this time with a creatinine of 2.48. Continue to drink a moderate amount of water to support your kidneys. Do not drink water in excess as this may cause a decrease in sodium again. Please contact your cash applications associate on Thursday regarding further instructions for water consumption. Return to care if you have worsening symptoms despite following these instructions. All discharge instructions reviewed with patient and/or family. Voiced understanding. Copy Copies To 1: DAMION SHULTZ MD, JOSHUA T MD Mar 22, 2023 16:43
[2023-03-22 17:00] VITALS: BP 145/75
== END 2023-03-22 17:00 | disposition home or self-care (01) ==
LOC: EDUNIT# 16:01 → ER 16:07
DX: E87.1 Hypo-osmolality and hyponatremia (principal); E11.22 Type 2 diabetes mellitus with diabetic chronic kidney disease; I12.9 Hypertensive chronic kidney disease with stage 1 through stage 4 chronic kidney disease, or unspecified chronic kidney disease; N18.9 Chronic kidney disease, unspecified; E11.40 Type 2 diabetes mellitus with diabetic neuropathy, unspecified
CPT/HCPCS: 36415; 80048; 83735

== ENCOUNTER 2023-03-23 17:44 | Emergency (ER) | payer MEDICARE, MEDICAID ==
[~2023-03-23] VITALS: Ht 177 cm; Wt 70.3 kg
--- NOTE | 2023-03-23 18:32 | ED General ---
General Chief Complaint: Cardiac/General Problems Stated Complaint: BLOOD PRESSURE HIGH Nursing Triage Note: pt presents to ed via pov from home with complaints of increased htn starting today. pt denies any s/s or pain. pt reports he is concerned due to his kidney disease. Source of Information: Patient Exam Limitations: No Limitations History of Present Illness Date Seen by Provider: Mar 23, 2023 Time Seen by Provider: 18:11 Initial Comments Patient is a 77-year-old male with a history of hypertension, chronic kidney disease who presents to the emergency room with a concern for increasing blood pressure throughout the day. He tells me over the last couple of weeks he has been struggling with a little low sodium, he has had a couple of emergency room visits regarding this. He is followed by Dr. Dsouza for cardiology and Dr. Venegas for nephrology. He states he felt good all day today and then had some right flank discomfort. He states he just started feeling some generalized malaise and was concerned about his kidney function. He was taking his blood pressure at home, 150 systolic climbed to 166 systolic and felt like this may be affecting his kidneys. He denies headache, vision change. No chest pain, no shortness of breath. No swelling in his legs. No nausea. He is urinated normally today. Current blood pressure 146 systolic. Completely asymptomatic at the moment. No sick contacts at home. He was seen in the emergency department yesterday and had basic labs performed which showed a sodium of 131. His next follow-up with Dr. Dsouza is in 4 to 5 months. He was advised to keep a log of his blood pressures at home but has not been doing that because he thinks it is a waste of time. I reassured him that this is actually good plan and that he may need some blood pressure medicine changes and he should follow-up with Dr. Dsouza. Timing/Duration: 1-3 Hours, 1 Day Associated Systoms: Denies Symptoms Allergies and Home Medications Allergies Coded Allergies: No Known Drug Allergies (Unverified , 11/10/09) Patient Home Medication List Home Medication List Reviewed: Yes Amlodipine Besylate (Amlodipine Besylate) 10 Mg Tablet, 10 MG PO DAILY Prescribed by: VARUN SLADE on 11/02/202 Aspirin (Aspirin EC) 81 Mg Tablet.dr 81 MG PO DAILY Prescribed by: JIM ROCHA JR, MD on 01/12/21 134 Carvedilol (Carvedilol) 12.5 Mg Tablet, 12.5 MG PO BID Prescribed by: JIM ROCHA JR, MD on 01/12/21 134 Ferrous Sulfate (Ferrous Sulfate) 325 Mg Tablet, 325 MG PO DAILY, (Reported) Entered as Reported by: MIKE CHERY on 07/04/20 09 Latanoprost (Xalatan) 2.5 Ml Drops, 1 DROP OU HS, (Reported) Entered as Reported by: MIKE CHERY on 07/04/20936 Lutein (Lutein) 20 Mg Tablet, 20 MG PO DAILY, (Reported) Entered as Reported by: MIKE CHERY on 07/04/20936 Multivitamin (Multivitamins) 1 Each Tablet, 1 TAB PO DAILY, (Reported) Entered as Reported by: JIM GIBBS on 09/26/15 0835 Nitroglycerin (Nitroglycerin) 0.4 Mg Tab.subl, 0.4 MG SL NEEDED PRN for CHEST PAIN (ANGINA) Prescribed by: JIM ROCHA JR, MD on 01/12/211345 [place]-3/Dha/Epa/Fish Oil (Fish Oil 1,000 mg Softgel) 1 Each Capsule, 1,000 MG PO DAILY, (Reported) Entered as Reported by: JIM GIBBS on 09/26/15 08 Rosuvastatin Calcium (Rosuvastatin Calcium) 20 Mg Tablet, 20 MG PO HS Prescribed by: JIM ROCHA JR, MD on 01/12/21 134 Sitagliptin Phosphate (Januvia) 25 Mg Tablet, 25 MG PO DAILY, (Reported) Entered as Reported by: MIKE CHERY on 07/04/20936 Sodium Bicarbonate (Sodium Bicarbonate) 325 Mg Tablet, 650 MG PO DAILY, (Reported) Entered as Reported by: MIKE CHERY on 07/04/20936 Ticagrelor (Brilinta) 60 Mg Tablet, 60 MG PO BID, (Reported) Entered as Reported by: MIKE CHERY on 07/04/20936 Vitamin A Palmitate (Vitamin A) 10,000 Unit Capsule, 10,000 UNIT PO DAILY, (Reported) Entered as Reported by: MIKE CHERY on 07/04/20936 Vitamin B Complex (Vitamin B Complex) 1 Each Tablet, 1 EACH PO DAILY, (Reported) Entered as Reported by: MIKE CHERY on 07/04/20936 Zinc (Zinc) 50 Mg Tablet, 50 MG PO DAILY, (Reported) Entered as Reported by: MIKE CHERY on 07/04/20936 Review of Systems Review of Systems Constitutional: see HPI EENTM: no symptoms reported Respiratory: no symptoms reported Cardiovascular: no symptoms reported Gastrointestinal: no symptoms reported Genitourinary: no symptoms reported Musculoskeletal: back pain (right flank) Skin: no symptoms reported Psychiatric/Neurological: No Symptoms Reported Past Dponena-Cyatfp-Zioiqg Hx Patient Social History Tobacco Use?: No Substance use?: No Alcohol Use?: No Pt feels they are or have been: No Immunizations Up To Date Tetanus Booster (TDap): More than 5yrs First/Initial COVID19 Vaccinat: 5 SHOTS Second COVID19 Vaccination Conrado: 5 SHOTS Third COVID19 Vaccination Date: 5 SHOTS Seasonal Allergies Seasonal Allergies: No Past Medical History Surgery/Hospitalization HX: NIDDM. [place] X2. STENTS. KIDNEY FAILURE Surgeries: Yes Abdominal, Appendectomy, Coronary Stent Respiratory: No Cardiac: Yes Coronary Artery Disease, Heart Attack, Hypertension Neurological: Yes Neuropathy Reproductive Disorders: No Genitourinary: Yes Renal Failure Gastrointestinal: Yes Gastroesophageal Reflux Musculoskeletal: No Endocrine: Yes Diabetes, Non-Insulin dep HEENT: No Cancer: Yes Prostate Did You Recieve Any Treatments: Yes What Type of Treatment Did You: Radiation Psychosocial: No Integumentary: No Blood Disorders: No Family Medical History Bone cancer G8 BROTHER Diabetes mellitus 19 MOTHER Heart Disease, Cancer, CAD Over 55 Years Old, Diabetes 57yo sister "in her sleep" Physical Exam Vital Signs Capillary Refill : Less Than 3 Seconds Height, Weight, BMI Height: 5'10.00" Weight: 172lbs. 5.0oz. 78.381956sq; 22.00 BMI Method:Stated General Appearance: No Apparent Distress, WD/WN Eyes: Bilateral Eye Normal Inspection, Bilateral Eye PERRL, Bilateral Eye EOMI HEENT: PERRL/EOMI Neck: Normal Inspection Respiratory: Lungs Clear, Normal Breath Sounds, No Accessory Muscle Use, No Respiratory Distress Cardiovascular: Regular Rate, Rhythm, Normal Peripheral Pulses Gastrointestinal: Normal Bowel Sounds, Non Tender, Soft Back: CVA Tenderness (R) Extremity: Normal Inspection, Normal Range of Motion, Non Tender, No Calf Tenderness Neurologic/Psychiatric: Alert, Oriented x3, No Motor/Sensory Deficits, Normal 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 Evaluation today includes history and phy sical exam. Pertinent physical exam findings, well-developed well-nourished 77-year-old male in no acute distress. Current blood pressure is 148/68. His exam is grossly unremarkable, no focal neurologic deficits, heart is regular, bradycardic, sinus on telemetry at 57. His lungs are clear. 2+ radial pulses. Soft abdomen nontender. No lower extremity edema. No CVA tenderness. No rashes to the right flank.\\ Patient is reassured that his blood pressure is well within the normal range and even in the 160s as long as he is not having any symptoms of endorgan failure which I explained in detail to the level of his understanding, this number is still a safe number. I encouraged him as he has been told before to keep a log of his blood pressures, once or twice daily to take to Dr. Dsouza's office as well as to Dr. Venegas. I advised that if his numbers are climbing he should rest, take a little Tylenol, hydrate. If these are not working to bring his blood pressures down distraction with mild light activities to take his mind off the numbers would be beneficial. I spent approximately 20 minutes discussing with him blood pressure management, his salt and hydration, reasons to return to the emergency department and reasons why keeping a log of his blood pressures are so important. Both he and his significant other verbalized understanding of the plan of care. All questions are sought and answered. Patient is stable for discharge. Departure Impression Primary Impression: concern for elevated blood pressure Disposition: 01 HOME, SELF-CARE Condition: Stable Departure-Patient Inst. Decision time for Depature: 18:29 Referrals: DAMION SHULTZ MD (PCP/Family) Primary Care Physician Patient Instructions: High blood pressure emergencies Add. Discharge Instructions: Continue your daily medications as prescribed. You can drink water in moderation. Your kidney doctor will monitor your electrolytes (sodium). You need to keep a daily log of your blood pressure. Just take it once or twice a day at various times of the day. Record this in a little notebook to take to your kidney doctor as well as to Dr. Dsouza's office. You should also take it if you have unusual symptoms especially with chest pain, unusual headache, feeling short of breath. If you become concerned about higher numbers, sit down and rest or try and di stract yourself for a couple of hours with a light activity. Return to the emergency department for emergent symptoms such as chest pain, shortness of breath, severe headache, significant swelling in your legs, etc. Please call and follow-up with Dr. Dsouza in the next couple of weeks after keeping a 2-week log of your blood pressure. Copy Copies To 1: DAMION SHULTZ MD Copies To 2: KELLY DSOUZA MD, KATHRYN M MD Mar 23, 2023 18:32
[2023-03-23 18:39] VITALS: BP 125/66
== END 2023-03-23 18:38 | disposition home or self-care (01) ==
LOC: EDUNIT# 17:44 → ER 17:46
DX: I10 Essential (primary) hypertension (principal); I25.2 Old myocardial infarction; Z95.5 Presence of coronary angioplasty implant and graft
CPT/HCPCS: 99281

== ENCOUNTER → 2023-03-24 | Outpatient (CLI) | payer MEDICARE, MEDICAID ==
[2023-03-24 14:46] LABS: ALBUMIN 3.5 GM/DL (3.2-4.5)
[2023-03-24 14:47] LABS: POTASSIUM 4.4 MMOL/L (3.6-5.0)
[2023-03-24 14:48] LABS: CALCIUM 8.3 MG/DL (8.5-10.1)
[2023-03-24 14:52] LABS: CREATININE SERUM 2.23 MG/DL (0.60-1.30); PHOSPHORUS 3.2 MG/DL (2.3-4.7)
== END ==
LOC: LAB 14:13
PROVIDERS: ATTEND Internal Medicine Nephrology
DX: I12.9 Hypertensive chronic kidney disease with stage 1 through stage 4 chronic kidney disease, or unspecified chronic kidney disease (principal); N18.4 Chronic kidney disease, stage 4 (severe); E21.2 Other hyperparathyroidism; E55.9 Vitamin D deficiency, unspecified; N25.89 Other disorders resulting from impaired renal tubular function
CPT/HCPCS: 36415; 80069